=== PATIENT | male | born 1945 | race Caucasian/White ===

== ENCOUNTER 2017-12-01 10:09 | Emergency (ER) | payer MEDICARE, OTHER ==
[2017-12-01 10:24] VITALS: BP 155/61
--- NOTE | 2017-12-03 09:54 | ER ---
DATE SEEN: 12/01/2017 TIME SEEN: The patient was seen at 1035 hours. 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 Now, he notes a slight white discoloration of tissue in the anterior mid navarro with surrounding redness. He wonders if it is infected. CURRENT MEDICATIONS: 1. Simvastatin. 2. Omeprazole. 3. Metoprolol succinate 50 mg daily. 4. Metformin 500 mg b.i.d. 5. Warfarin 5 mg daily. 6. Losartan-Cozaar 50 mg daily. ALLERGIES: Sulfa. REVIEW OF SYSTEMS: Otherwise, the patient denies headache or early eyesight changes, early satiety, constipation, peripheral artery disease-paresthesia, dysesthesia in lower extremities, but he notes he has symptoms occasionally with all the above. He has had previous right inguinal hernia surgery beside two stents plus aortic valve replacement for aortic stenosis. Review systems otherwise negative. PHYSICAL EXAMINATION: VITAL SIGNS: Blood pressure 155/61, heart rate 62, respirations 18, oxygen saturation 98%, and temperature is 36.5 degrees centigrade. 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 He is pleasant gentleman, mildly overweight. He has truly the hands of a pro with thickened large hands. HEENT: He is quiet and soft spoken and wears glasses. Hearing slightly decreased. Pharynx without abnormality. NECK AND CHEST: Murmurs transmitted from the chest to the neck, aortic murmurs very short, early systolic murmur. There is a loud click in his chest. It is greater on the right side compared to the left side, 2/6 in intensity. Minimal murmur. Grade 1 early short systolic murmur. LUNGS: Clear without rales or rhonchi. HEART: Sinus rhythm. ABDOMEN: Soft. No guarding. No abdominal discomfort. Slightly increased abdominal girth. EXTREMITIES: Lower extremities, no edema. Mid left lower extremity, 8 cm area of mild ecchymosis. Not raised. Not hot, not warm. Slightly pigmented with erythema and purplish discoloration, central focal 4 mm white ulcer that is not denuded. No pain in the back of his leg. Dorsalis pedis intact. Trace pedal edema. No dysesthesia or pain with palpation in lower extremity. ASSESSMENT AND PLAN: 1. Traumatic injury, left mid lower leg. 2. Does not appear to be infected, however, because of his valvular disease, we want to avoid any infection. Consequently, the patient will be treated with Keflex 500 mg t.i.d. for 7 days. 3. Advised it will affect his pro-time and may go up because the bacteria get killed and will result in less vitamin K absorption from the gut, will also result in slight elevation in his pro-time. So this will need to be followed should it be markers and may need to be checked in a week. 4. The patient has hypertension, treated. 5. Diabetes, treated. 6. Mild obesity. 7. 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 The tightness in the pads does diminish the sensation in lower extremity. Once taken off, his circulation seemed to improve. The patient to start Keflex 3 times a day and pro-time recheck in a week and keep the wound clean and use antibiotic to protect his leg from further contusion at the site of his contusion in his left mid lower extremity. /[id number] OTILIO/DANII
== END 2017-12-01 11:30 | disposition home or self-care (01) ==
LOC: FB.ED 10:09
DX: S80.12XA Contusion of left lower leg, initial encounter (principal); I10 Essential (primary) hypertension; E11.9 Type 2 diabetes mellitus without complications; E66.9 Obesity, unspecified; K59.00 Constipation, unspecified; W22.8XXA Striking against or struck by other objects, initial encounter; Z79.899 Other long term (current) drug therapy; Z79.01 Long term (current) use of anticoagulants; Z79.84 Long term (current) use of oral hypoglycemic drugs; Z68.32 Body mass index [BMI] 32.0-32.9, adult; Z95.5 Presence of coronary angioplasty implant and graft; Z88.2 Allergy status to sulfonamides
CPT/HCPCS: 99282

== ENCOUNTER 2017-12-16 08:41 | Emergency (ER) | payer MEDICARE, OTHER ==
[2017-12-16 09:05] VITALS: BP 145/57
--- NOTE | 2017-12-16 12:32 | ER ---
DATE SEEN: 12/16/2017 HISTORY OF PRESENT ILLNESS: This 72-year-old single fellow comes in with a history of noticing a darkened bluish discoloration in his right medial foot. He has had 2 previous stents and also aortic valve replacement for aortic stenosis. He is on Coumadin. SOCIAL HISTORY: He is . Nonsmoker. PAST MEDICAL HISTORY: Has diabetes and hypertension. MEDICATIONS: He is taking; 1. Simvastatin. 2. Omeprazole. 3. Metoprolol succinate. 4. Metformin. 5. Warfarin. 6. Losartan. 7. Cozaar. REVIEW OF SYSTEMS: He denies headache, lightheadedness, or dizziness. He has decreased hearing. He states he has a cough when he goes into rest and, otherwise, he does not usually cough. At home, he does not cough. He denies chest pain or irregular heartbeat. He denies abdominal discomfort, change in bowels, diarrhea, constipation, blood in the stool, or black tarry stools. He has mild prostatism with difficulty passing urine-decreased stream. Musculoskeletal, no complaints. He has left third finger metallic sliver and it has been there for some time. PHYSICAL EXAMINATION: His right inner foot, there is a 25-cent sized area of purple discoloration suggesting mild ecchymosis that has faded. No pain noted with palpation of this. His dorsalis pedis and posterior tibialis are palpable. On palpation, he has good femoral arterial pulses. He has a slight fat overhang at lower abdomen. 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 ASSESSMENT: Right foot ecchymosis secondary to increased capillary fragility and trace of superficial bleed with bruising that is well controlled and contained. No hematoma noted. Reassured. Follow up with his doctor as needed. Also, the left third finger, metallic sliver was removed from his finger without difficulty. OTHER DIAGNOSES: 1. Heart valve, aortic, with anticoagulation. 2. Gastroesophageal reflux disease. 3. Hypertension. 4. Diabetes, treated with metformin. 5. Also, he has a soft bruit in the neck, left and right, systolic in character. I do not think this is a transmission of murmur from his aortic valve. Rule out carotid artery disease, which may need further workup and evaluation per his doctor"s discretion. The patient is to follow up with his doctor as needed. /[id number] OTILIO/DANII HATCH
== END 2017-12-16 09:44 | disposition home or self-care (01) ==
LOC: FB.ED 08:41
DX: R58 Hemorrhage, not elsewhere classified (principal); K21.9 Gastro-esophageal reflux disease without esophagitis; E11.9 Type 2 diabetes mellitus without complications; I10 Essential (primary) hypertension; Z79.84 Long term (current) use of oral hypoglycemic drugs
CPT/HCPCS: 99283

== ENCOUNTER 2019-05-08 19:49 | Emergency (ER) | payer MEDICARE, OTHER ==
[2019-05-08 20:05] VITALS: BP 1554/92; PULSE 70
--- NOTE | 2019-05-08 20:37 | EDM.PDOC ---
ED HPI GENERAL MEDICAL PROBLEM - General Stated Complaint: FELL Time Seen by Provider: 05/08/19 20:00 Source of Information: Reports: Patient History Limitations: Reports: No Limitations - History of Present Illness INITIAL COMMENTS - FREE TEXT/NARRATIVE: Patient presented to the ED because he hit his head against a metal. He sustained abrasions on the scalp area. He denies any headacheche,N/V. There was no LOC after the fall. Head Pain Score (Numeric/FACES): 0 - Related Data Allergies Allergy/AdvReac Type Severity Reaction Status Date / Time Sulfa (Sulfonamide Allergy Rash Verified 12/16/17 08:56 Antibiotics) Home Meds: Home Meds Losartan [Cozaar] 50 mg PO DAILY 12/01/17 [History] Metoprolol Succinate 50 mg PO DAILY 12/01/17 [History] Simvastatin [Zocor] 40 mg PO DAILY 12/01/17 [History] Warfarin [Coumadin] 5 mg PO DAILY 12/01/17 [History] metFORMIN [Glucophage] 500 mg PO BIDMEALS 12/01/17 [History] Aspirin 81 mg PO DAILY 05/08/19 [History] Past Medical History HEENT History: Reports: Hard of Hearing, Impaired Vision Cardiovascular History: Reports: Heart Valve Replacement, High Cholesterol, Hypertension Respiratory History: Reports: Other (See Below) Other Respiratory History: former smoker, has inhaler as needed. Gastrointestinal History: Reports: GERD Musculoskeletal History: Reports: Arthritis Endocrine/Metabolic History: Reports: Diabetes, Type II - Infectious Disease History Infectious Disease History: Reports: Chicken Pox, Mumps - Past Surgical History Cardiovascular Surgical History: Reports: Valve Replacement Social & Family History - Family History Family Medical History: Noncontributory - Caffeine Use Caffeine Use: Reports: Coffee, Soda Caffeine Use Comment: 4 cups coffee per day and 2 cans pop per day. ED ROS GENERAL - Review of Systems Review Of Systems: See Below Constitutional: Reports: No Symptoms HEENT: Reports: No Symptoms Respiratory: Reports: Cough Cardiovascular: Reports: No Symptoms Endocrine: Reports: No Symptoms GI/Abdominal: Reports: No Symptoms : Reports: No Symptoms Musculoskeletal: Reports: No Symptoms Skin: Reports: No Symptoms Neurological: Reports: No Symptoms Psychiatric: Reports: No Symptoms Hematologic/Lymphatic: Reports: No Symptoms Immunologic: Reports: No Symptoms ED EXAM, HEAD INJURY - Physical Exam Exam: See Below Exam Limited By: No Limitations General Appearance: Alert, No Apparent Distress Head: Atraumatic, Scalp Ecchymosis Eyes: Bilateral Eye: PERRL Ears: Normal External Exam, Normal Canal, Hearing Grossly Normal Nose: Normal Inspection, Normal Mucousa Throat/Mouth: Normal Inspection, Normal Lips, Normal Teeth, Normal Gums Neck: Non-Tender, Full Range of Motion, Normal Alignment Respiratory: No Respiratory Distress, Lungs Clear, Normal Breath Sounds, No Accessory Muscle Use, Chest Non-Tender Cardiovascular: Normal Peripheral Pulses, Regular Rate, Rhythm, No Edema, No Gallop, No JVD, No Murmur, No Rub GI/Abdominal Exam: Normal Bowel Sounds, Soft, Non-Tender, No Organomegaly, No Distention, No Abnormal Bruit, No Mass Skin: Other (abrasions on the scalp) Course - Vital Signs Text/Narrative:: patient refused to have a head CT. I explained to him that he is high risk for bleeding because he is taking coumadin but he told me that he doesn't need it and just want to go home. Last Recorded V/S: Last Vital Signs Temp 36.3 C 05/08/19 19:55 Pulse 70 05/08/19 19:55 Resp 16 05/08/19 19:55 BP 1554/92 H 05/08/19 19:55 Pulse Ox 99 05/08/19 19:55 Departure - Departure Time of Disposition: 20:35 Disposition: Home, Self-Care 01 Condition: Good Clinical Impression: Head injury - Discharge Information Instructions: Head Injury, Adult Referrals: Carlos Newton MD [Primary Care Provider] - Forms: ED Department Discharge Additional Instructions: please read discharge instructions on closed head injury return to the EDif you develop any headache,nausea,vomiting,feels confused
== END 2019-05-08 20:45 | disposition home or self-care (01) ==
LOC: FB.ED 19:49
DX: S00.01XA Abrasion of scalp, initial encounter (principal); S09.90XA Unspecified injury of head, initial encounter; I10 Essential (primary) hypertension; E03.9 Hypothyroidism, unspecified; E11.9 Type 2 diabetes mellitus without complications; Z79.899 Other long term (current) drug therapy; Z79.84 Long term (current) use of oral hypoglycemic drugs; Z79.82 Long term (current) use of aspirin; Z79.01 Long term (current) use of anticoagulants; Z88.2 Allergy status to sulfonamides; W19.XXXA Unspecified fall, initial encounter; Z87.891 Personal history of nicotine dependence; W22.8XXA Striking against or struck by other objects, initial encounter
CPT/HCPCS: 99282; 99283

== ENCOUNTER 2019-07-29 06:58 | Day surgery (SDC) | payer MEDICARE, OTHER ==
[~2019-07-29 06:58] MED LIST: Sodium Chloride 0.9% 10 ML Syringe FLUSH PRN
[2019-07-29] MEDS ORDERED: Midazolam 1 MG/ML 2 ML SDV IV ONE (06:59)
[2019-07-29] MEDS: Lactated Ringers 1,000 ML IV SCH (07:45)
[2019-07-29 09:51] VITALS: BP 150/68; PULSE 76
[2019-07-29] MEDS: acetaZOLAMIDE 500 MG Cap.ER PO ONE (09:57)
--- NOTE | 2019-07-29 16:03 | OR ---
DATE OF OPERATION: 07/29/2019 SURGEON: Alicia Gomez MD PREOPERATIVE DIAGNOSIS: Visually significant cataract, left eye. POSTOPERATIVE DIAGNOSIS: Visually significant cataract, left eye. PROCEDURES PERFORMED: Phacoemulsification with intraocular lens placement, left eye. ASSISTANTS: None. ANESTHESIA: Local with sedation. COMPLICATIONS: None. BLOOD LOSS: None. IMPLANTS: An Carlos AU00T0, 22.0 diopter lens, serial number [id number] implanted. CDE: 3.08. DESCRIPTION OF PROCEDURE: After risks and benefits were reviewed with the patient, consent was obtained in the preoperative area, and the operative eye was marked with a surgical pen. In the preoperative area, a pledget was used to dilate the pupil consisting of a mixture of phenylephrine 10%, cyclopentolate 2%, moxifloxacin 0.5%, and bupivacaine 0.75%. The patient was taken to the operating room, where a time-out was performed, and the patient was placed under monitored anesthesia care. Topical tetracaine was used for anesthesia. The operative eye was prepped and draped for ophthalmic surgery, and the microscope was brought into position and focussed. A paracentesis incision was made, followed by injection of preservative-free 1% lidocaine into the anterior chamber, followed by injection of Viscoat into the anterior chamber. A microkeratome blade was used to make a corneal limbal incision temporarily. A cystotome was used to make the beginning of the capsulorrhexis, which was carried around 360 degrees in a curvilinear fashion using Utrata forceps. A Garcia cannula with BSS was used to hydrodissect and hydrodelineate the nucleus. The nucleus was removed in a divide and conquer manner using phacoemulsification. Irrigation and aspiration were used to remove the remaining cortical material. Provisc was used to inflate the capsular bag, and a pre-loaded 22.0 diopter lens, serial number [id number], was injected into the capsular bag. A Sinskey hook was used to position and center the lens. Next, irrigation and aspiration was used to remove any remaining viscoelastic and cortical material from the anterior chamber. BSS on a cannula was used to inflate the anterior chamber and hydrate the wound. The wound was checked and found to be watertight. 1 mg of Moxifloxacin was injected into the anterior chamber. Drapes were removed and the eye was cleaned. A drop of brimonidine 0.15% and a drop of TobraDex was placed. The eye was shielded, and the patient was taken to the recovery room in stable condition. /[id number] LUDA/DANII CC: HANY FLORENCE PA-C MTDD
== END 2019-07-29 10:14 | disposition home or self-care (01) ==
LOC: FB.SDS 06:58
PROVIDERS: ATTEND Ophthalmology
DX: E11.36 Type 2 diabetes mellitus with diabetic cataract (principal); H25.13 Age-related nuclear cataract, bilateral; Q14.8 Other congenital malformations of posterior segment of eye; H01.029 Squamous blepharitis unspecified eye, unspecified eyelid; H02.88B Meibomian gland dysfunction left eye, upper and lower eyelids; H02.88A Meibomian gland dysfunction right eye, upper and lower eyelids; H52.203 Unspecified astigmatism, bilateral; H52.4 Presbyopia; I25.10 Atherosclerotic heart disease of native coronary artery without angina pectoris; I10 Essential (primary) hypertension; E78.5 Hyperlipidemia, unspecified; M19.049 Primary osteoarthritis, unspecified hand; Z87.891 Personal history of nicotine dependence; Z88.2 Allergy status to sulfonamides; Z79.01 Long term (current) use of anticoagulants; Z79.84 Long term (current) use of oral hypoglycemic drugs; Z79.51 Long term (current) use of inhaled steroids; Z79.82 Long term (current) use of aspirin; Z79.899 Other long term (current) drug therapy; Z95.2 Presence of prosthetic heart valve; Z95.1 Presence of aortocoronary bypass graft
CPT/HCPCS: 00142-QZ; 82962; A9270-GY; J2250; J7120; V2632

== ENCOUNTER 2019-09-09 07:02 | Day surgery (SDC) | payer MEDICARE, OTHER ==
[~2019-09-09 07:02] MED LIST changes: +Lactated Ringers 1,000 ML IV SCH
[2019-09-09] MEDS ORDERED: fentaNYL 100 MCG/2 ML SDV IV ONE (07:03)
[2019-09-09] MEDS ORDERED: Midazolam 1 MG/ML 2 ML SDV IV ONE (07:03)
[2019-09-09] MEDS ORDERED: acetaZOLAMIDE 500 MG Cap.ER PO ONE (08:30)
[2019-09-09 13:21] VITALS: BP 164/64; PULSE 70
--- NOTE | 2019-09-10 08:30 | OR ---
DATE OF OPERATION: 09/09/2019 SURGEON: Alicia Gomez MD PREOPERATIVE DIAGNOSIS: Visually significant cataract, right eye. POSTOPERATIVE DIAGNOSIS: Visually significant cataract, right eye. PROCEDURES PERFORMED: Phacoemulsification with intraocular lens placement, right eye. ASSISTANTS: None. ANESTHESIA: Local with sedation. COMPLICATIONS: None. BLOOD LOSS: None. IMPLANTS: Carlos [id number] 21.5 diopter lens implanted. CDE: 5.83. DESCRIPTION OF PROCEDURE: After risks and benefits were reviewed with the patient, consent was obtained in the preoperative area, and the operative eye was marked with a surgical pen. In the preoperative area, a pledget was used to dilate the pupil consisting of a mixture of phenylephrine 10%, cyclopentolate 2%, moxifloxacin 0.5%, and bupivacaine 0.75%. The patient was taken to the operating room, where a time-out was performed, and the patient was placed under monitored anesthesia care. Topical tetracaine was used for anesthesia. The operative eye was prepped and draped for ophthalmic surgery, and the microscope was brought into position and focused. A paracentesis incision was made, followed by injection of preservative-free 1% lidocaine into the anterior chamber, followed by injection of Viscoat into the anterior chamber. A microkeratome blade was used to make a corneal limbal incision temporally. A cystotome was used to make the beginning of the capsulorrhexis, which was carried around 360 degrees in a curvilinear fashion using Utrata forceps. A Garcia cannula with BSS was used to hydrodissect and hydrodelineate the nucleus. The nucleus was removed in a divide and conquer manner using phacoemulsification. Irrigation and aspiration were used to remove the remaining cortical material. Provisc was used to inflate the capsular bag, and a pre-loaded Carlos [id number] 21.5 diopter lens, serial number [id number] was injected into the capsular bag. A Sinskey hook was used to position and center the lens. Next, irrigation and aspiration was used to remove any remaining viscoelastic and cortical material from the anterior chamber. BSS on a cannula was used to inflate the anterior chamber and hydrate the wound. The wound was checked and found to be watertight. 1 mg of Moxifloxacin was injected into the anterior chamber. Drapes were removed and the eye was cleaned. A drop of brimonidine 0.15% and a drop of TobraDex was placed. The eye was shielded, and the patient was taken to the recovery room in stable condition. /[id number] LUDA/DANII CC: HANY FLORENCE PA-C
== END 2019-09-09 09:25 | disposition home or self-care (01) ==
LOC: FB.SDS 07:02
PROVIDERS: ATTEND Ophthalmology
DX: E11.36 Type 2 diabetes mellitus with diabetic cataract (principal); H25.11 Age-related nuclear cataract, right eye; Q11.2 Microphthalmos; H01.029 Squamous blepharitis unspecified eye, unspecified eyelid; I10 Essential (primary) hypertension; E78.5 Hyperlipidemia, unspecified; I25.10 Atherosclerotic heart disease of native coronary artery without angina pectoris; Z95.4 Presence of other heart-valve replacement; Z79.84 Long term (current) use of oral hypoglycemic drugs; Z79.899 Other long term (current) drug therapy; Z79.82 Long term (current) use of aspirin; Z88.2 Allergy status to sulfonamides; Z98.42 Cataract extraction status, left eye; Z87.891 Personal history of nicotine dependence
CPT/HCPCS: 82962; A9270-GY; J2250; J3010; J7120; V2632

== ENCOUNTER 2019-09-23 11:13 | Inpatient (IN) | payer MEDICARE, OTHER ==
[2019-09-23] MEDS ORDERED: Albuterol/Ipratropium 3.0-0.5 MG/3 ML Neb Soln NEB PRN (12:56)
[2019-09-23] MEDS ORDERED: Acetaminophen 325 MG Tab PO PRN (12:56)
[2019-09-23] MEDS ORDERED: cefTRIAXone 1 GM in Sodium Chloride 0.9% 50 ML IV SCH (13:00)
[2019-09-23] MEDS ORDERED: Azithromycin 500 MG in Sodium Chloride 0.9% 250 ML IV SCH ×2 (13:00→13:30)
[2019-09-23] MEDS ORDERED: cefTRIAXone 1 GM Vial IVPUSH SCH (13:00)
--- NOTE | 2019-09-23 13:05 | PCM.HP.2 ---
H&P History of Present Illness - General Date of Service: 09/23/19 Admit Problem/Dx: Admission Diagnosis/Problem Admission Diagnosis/Problem Pneumonia Source of Information: Patient, Old Records History Limitations: Reports: No Limitations - History of Present Illness Initial Comments - Free Text/Narative: Radu even 74-year-old young man who presents with shortness of breath. He was seen in the clinic by Dolly Ventura and admitted here for treatment for pneumonia. Radu has had shortness of breath for a few weeks, subjective fever, nonproductive on and off cough. He also complains of fleeting chest pain, bilateral. 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 A PET scan that was done afterwards revealed and decreasing size of the mass 3.[address] chest 3 weeks ago confirmed stability.He saw Pulmonology at the beginning of August, was put on Breo on suspicion of reactive airway disease;possibly restrictive lung disease(tests were not conclusive). In the last few days he's felt worse. In the clinic today , a chest x-ray showed a left lower lobe infiltrate suggestive of recurrent pneumonia. No recent travel to high risk areas for COVID-19,and he does not endorse any contacts with a known patient. Radu's past medical history is consistent with hypertensive, coronary disease( stent x1 about 10years ago), diabetes type 2 well controlled, and aortic stenosis status post valve repair - Related Data Allergies/Adverse Reactions: Allergies Allergy/AdvReac Type Severity Reaction Status Date / Time Sulfa (Sulfonamide Allergy Rash Verified 09/09/19 07:40 Antibiotics) Home Medications: Home Meds Losartan [Cozaar] 50 mg PO DAILY 12/01/17 [History] Metoprolol Succinate 50 mg PO BID 12/01/17 [History] Simvastatin [Zocor] 40 mg PO DAILY 12/01/17 [History] Warfarin [Coumadin] 5 mg PO DAILY 12/01/17 [History] metFORMIN [Glucophage] 500 mg PO BIDMEALS 12/01/17 [History] Aspirin 81 mg PO DAILY 05/08/19 [History] Hydrochlorthiazide/Irbesartan [Avalide 12.5-300 MG] 1 tab PO DAILY 07/28/19 [ History] Omeprazole 20 mg PO DAILY 07/28/19 [History] Albuterol Sulfate [Albuterol Sulfate Hfa] 2 puff IH Q4H PRN 08/11/19 [History] Meclizine [Antivert] 12.5 mg PO Q4H PRN 08/11/19 [History] Carboxymethylcellulose Sodium [Thera Tears] 1 each OP ASDIRECTED 09/04/19 [ History] Fluticasone/Salmeterol [Advair Hfa 45-21 Mcg Inhaler] 2 puff IH BID 09/04/19 [ History] Fluticasone/Vilanterol [Breo Ellipta 100-25 MCG Inhalation Kit] 1 each IH DAILY 09/04/19 [History] Past Medical History HEENT History: Reports: Cataract, Hard of Hearing, Impaired Vision, Other (See Below) Other HEENT History: MEIBOMIAN GLAND DYSFUNCTION, BILATERAL BOTH UPPER & LOWER LIDS. TEAR FILM INSUFFICIENCY. HYPEROPIA. REGULAR ASTIGMATISM OF BOTH EYES. PRESBYOPIA. DENTAL CARRIES Cardiovascular History: Reports: CAD, Heart Valve Replacement, High Cholesterol , Hypertension Other Cardiovascular History: AORTIC STENOSIS Respiratory History: Reports: Other (See Below) Other Respiratory History: former smoker, has inhaler as needed. Gastrointestinal History: Reports: Cholelithiasis, GERD Musculoskeletal History: Reports: Arthritis Neurological History: Reports: None Psychiatric History: Reports: None Endocrine/Metabolic History: Reports: Diabetes, Type II Hematologic History: Reports: Anticoagulation Therapy Immunologic History: Reports: None Oncologic (Cancer) History: Reports: None Dermatologic History: Reports: None - Infectious Disease History Infectious Disease History: Reports: Chicken Pox, Mumps - Past Surgical History HEENT Surgical History: Reports: Cataract Surgery Cardiovascular Surgical History: Reports: Coronary Artery Bypass, Valve Replacement Male Surgical History: Reports: Other (See Below) Other Male Surgeries/Procedures: HERNIA WITH OBSTRUCTION. GALLSTONES. HERNIA REPAIR Social & Family History - Family History Family Medical History: Noncontributory - Caffeine Use Caffeine Use: Reports: Coffee, Soda Caffeine Use Comment: 4 cups coffee per day and 2 cans pop per day. H&P Review of Systems - Review of Systems: Review Of Systems: Comprehensive ROS is negative, except as noted in HPI. Exam - Exam Exam: See Below - Vital Signs Vital Signs: Last Vital Signs Temp 97.5 F 09/23/19 12:26 Pulse 84 09/23/19 12:26 Resp 20 09/23/19 12:26 BP 152/76 H 09/23/19 12:26 Pulse Ox 95 09/23/19 12:26 Weight: 91.796 kg - Exam Quality Assessment: No: Supplemental Oxygen General: Mild Distress HEENT: PERRLA Neck: Supple Lungs: Crackles Cardiovascular: Regular Rate GI/Abdominal Exam: Normal Bowel Sounds (Male) Exam: Deferred Rectal (Males) Exam: Deferred Back Exam: Normal Inspection Extremities: Normal Inspection, Pedal Edema Skin: Warm Neurological: Cranial Nerves Intact Neuro Extensive - Mental Status: Alert, Oriented x3 Neuro Extensive - Motor, Sensory, Reflexes: CN II-XII Intact Psychiatric: Alert, Normal Affect Sepsis Event Note - Focused Exam Vital Signs: Vital Signs Temp Pulse Resp BP Pulse Ox 09/23/19 12:26 97.5 F 84 20 152/76 H 95 Date Exam was Performed: 09/23/19 Time Exam was Performed: 13:13 - Problem List (1) CAP (community acquired pneumonia) SNOMED Code(s): 375906598 ICD Code: J18.9 - PNEUMONIA, UNSPECIFIED ORGANISM Status: Acute Current Visit: Yes Qualifiers: Laterality: left (2) SOB (shortness of breath) SNOMED Code(s): 955922268 ICD Code: R06.02 - SHORTNESS OF BREATH Status: Acute Current Visit: Yes (3) Elevated troponin SNOMED Code(s): 879241796, 734386431, 299090818 ICD Code: R79.89 - OTHER SPECIFIED ABNORMAL FINDINGS OF BLOOD CHEMISTRY Status: Acute Current Visit: Yes (4) S/P AVR Status: Chronic Current Visit: Yes (5) Long-term (current) use of anticoagulants, INR goal 2.5-3.5 SNOMED Code(s): 389710923, 160473711 ICD Code: Z79.01 - SPIRAL WINDER (CURRENT) USE OF ANTICOAGULANTS Status: Chronic Current Visit: Yes (6) CAD (coronary artery disease) SNOMED Code(s): 90707029 ICD Code: I25.10 - ATHSCL HEART DISEASE OF [place] CORONARY ARTERY W/O ANG PCTRS Status: Chronic Current Visit: Yes Qualifiers: Coronary Disease-Associated Artery/Lesion type: [place] artery Associated angina: without angina (7) Diabetes type 2, controlled SNOMED Code(s): 13380820, 154777294 ICD Code: E11.9 - TYPE 2 DIABETES MELLITUS WITHOUT COMPLICATIONS Status: Chronic Current Visit: Yes (8) HTN (hypertension) SNOMED Code(s): 00797821 ICD Code: I10 - ESSENTIAL (PRIMARY) HYPERTENSION Status: Chronic Current Visit: Yes Qualifiers: Hypertension type: essential hypertension Qualified Code(s): I10 - Essential (primary) hypertension Problem List Initiated/Reviewed/Updated: Yes Orders Last 24hrs: Active Orders 24 hr Category Date Time Status Patient Status [ADT] Routine ADT 09/23/19 12:56 Ordered Blood Glucose Check, Bedside [RC] TIDMEALS Care 09/23/19 12:56 Ordered EKG Documentation Completion [RC] ASDIRECTED Care 09/23/19 12:59 Ordered Height and Weight [RC] DAILY Care 09/23/19 12:56 Ordered Oxygen Therapy [RC] PRN Care 09/23/19 12:56 Ordered RT Aerosol Therapy [RC] ASDIRECTED Care 09/23/19 12:58 Ordered Up With Assistance [RC] ASDIRECTED Care 09/23/19 12:56 Ordered VTE/DVT Education [RC] Per Unit Routine Care 09/23/19 12:56 Ordered Vital Signs [RC] Q8H Care 09/23/19 12:56 Ordered Consistent Carbohydrate Diet [DIET] Diet 09/23/19 Breakfast Ordered Chest w Cont [CT] Routine Exams 09/23/19 13:02 Ordered BASIC METABOLIC PANEL,BMP [CHEM] AM Lab 09/24/19 05:11 Ordered CBC WITH AUTO DIFF [HEME] AM Lab 09/24/19 05:11 Ordered CORONAVIRUS COVID-19 PCR PHL [MREF] Stat Lab 09/23/19 12:56 Ordered CORONAVIRUS COVID-19, SHADE Stat Lab 09/23/19 12:56 Ordered CULTURE BLOOD [BC] Urgent Lab 09/23/19 12:59 Ordered CULTURE BLOOD [BC] Urgent Lab 09/23/19 12:59 Ordered RESPIRATORY PROFILE, PCR Stat Lab 09/23/19 13:03 Ordered TROPONIN I [CHEM] AM Lab 09/24/19 05:11 Ordered TROPONIN I [CHEM] Stat Lab 09/23/19 12:56 Ordered Acetaminophen [Tylenol] Med 09/23/19 12:56 Ordered 650 mg PO Q4H PRN Albuterol/Ipratropium [DuoNeb 3.0-0.5 MG/3 ML] Med 09/23/19 12:56 Ordered 3 ml NEB QIDRT PRN Azithromycin [Zithromax] 500 mg Med 09/23/19 13:00 Ordered Sodium Chloride 0.9% [Normal Saline (AdvBag)] 250 ml IV Q24H Sodium Chloride 0.9% [Saline Flush] Med 09/23/19 12:56 Ordered 10 ml FLUSH ASDIRECTED PRN cefTRIAXone [Rocephin] 1 gm Med 09/23/19 13:00 Ordered Sodium Chloride 0.9% [Normal Saline] 50 ml IV Q24H Blood Culture x2 Reflex Set [OM.PC] Urgent Oth 09/23/19 12:56 Ordered Peripheral IV Insertion Adult [OM.PC] Routine Oth 09/23/19 12:56 Ordered Resuscitation Status Routine Resus Stat 09/23/19 12:56 Ordered EKG 12 Lead [EK] Stat Ther 09/23/19 12:56 Ordered Medication Orders Acetaminophen (Tylenol) 650 mg PO Q4H PRN PRN Reason: Pain (Mild 1-3)/fever Albuterol/Ipratropium (Duoneb 3.0-0.5 Mg/3 Ml) 3 ml NEB QIDRT PRN PRN Reason: Wheezing Azithromycin 500 mg/ Sodium (Chloride) 250 mls @ 250 mls/hr IV Q24H KIM Ceftriaxone Sodium 1 gm/ (Sodium Chloride) 50 mls @ 200 mls/hr IV Q24H KIM Sodium Chloride (Saline Flush) 10 ml FLUSH ASDIRECTED PRN PRN Reason: Keep Vein Open Assessment/Plan Comment:: I have admitted him with contact prevautions. Will obtail a repat Trop and trend it. Also obtain a COVID-19 test and comp resp panel. Start IV abx. Duonebs PRN. Echo done in 2019 was negative for CHF.EF was 65%.
[2019-09-23] MEDS: Sodium Chloride 0.9% 10 ML Syringe FLUSH PRN (15:54)
[2019-09-23] MEDS ORDERED: Warfarin 5 MG, Warfarin 2.5 MG PO ONE ×2 (16:00)
[2019-09-23] MEDS ORDERED: BROMFENAC 0.09% EYERT SCH (16:00)
[2019-09-23] MEDS ORDERED: MOXIFLOXACIN EYERT SCH (16:00)
[2019-09-23] MEDS ORDERED: PREDNISOLONE EYERT SCH (16:00)
[2019-09-23] MEDS ORDERED: Warfarin Sliding Scale PO SCH (16:00)
--- NOTE | 2019-09-23 16:12 | PCM.SN ---
- Free Text/Narrative Note: [facility] Date: 09/23/2019 Time: 1524 to 1540 Dx: Pneumonia, Poor Peripheral Venous Access Rx: Obtain Peripheral Venous Access COVID-19 Precautions I was called by the floor RN for peripheral venous access after failed attempts. I did use COVID-19 precautions including N95 mask. I did find a peripheral vein in his right medial ACF area and I prepped the skin with alcohol wipes X 4. I did apply some "skin deadening" spray and inserted and advanced a BD Insyte Autoguard 20Ga. X 1.16 In. catheter X 2 attempts with a good blood return. I injected a total of 15 ml's of normal saline without difficulty and applied an Op-Site dressing. He tolerated this well. No coughing occurred during this procedure. Carlos Cristobal CRNA, A
[2019-09-23] MEDS: metFORMIN 500 MG Tab PO SCH (17:24)
[2019-09-23] MEDS: PREDNISOLONE EYERT SCH (20:30)
[2019-09-23] MEDS: BROMFENAC 0.09% EYERT SCH (20:30)
[2019-09-23] MEDS: MOXIFLOXACIN EYERT SCH (20:30)
[2019-09-23] MEDS: Metoprolol Tartrate 50 MG Tab PO SCH (20:31)
[2019-09-23] MEDS: Simvastatin 40 MG Tab PO SCH (20:31)
[2019-09-23] MEDS ORDERED: Metoprolol Succinate 50 MG Tab.ER PO SCH (21:00)
[2019-09-24] MEDS: metFORMIN 500 MG Tab PO SCH ×2 (08:13→17:57)
[2019-09-24] MEDS: Losartan 50 MG Tab PO SCH (08:14)
[2019-09-24] MEDS: Aspirin 81 MG Tab.EC PO SCH (08:14)
[2019-09-24] MEDS: Docusate Sodium 250 MG Cap PO SCH ×2 (08:14→08:19)
[2019-09-24] MEDS: Metoprolol Tartrate 50 MG Tab PO SCH ×2 (08:15→21:33)
[2019-09-24] MEDS: BROMFENAC 0.09% EYERT SCH ×2 (08:16→21:33)
[2019-09-24] MEDS: PREDNISOLONE EYERT SCH ×2 (08:16→21:33)
[2019-09-24] MEDS: MOXIFLOXACIN EYERT SCH ×2 (08:16→21:33)
[2019-09-24] MEDS: Sodium Chloride 0.9% 10 ML Syringe FLUSH PRN ×4 (08:23→17:32)
[2019-09-24] MEDS ORDERED: Furosemide 40 MG/4 ML VIAL IVPUSH ONE (08:52)
--- NOTE | 2019-09-24 08:52 | PCM.PN ---
- General Info Date of Service: 09/24/19 Subjective Update: Feels better today. Mild cough here and there. No chest pain. No FEVER Functional Status: Reports: Pain Controlled - Review of Systems HEENT: Reports: No Symptoms Gastrointestinal: Reports: No Symptoms Genitourinary: Reports: No Symptoms Musculoskeletal: Reports: No Symptoms - Patient Data Vitals - Most Recent: Last Vital Signs Temp 98.4 F 09/24/19 00:00 Pulse 78 09/24/19 08:15 Resp 20 09/24/19 00:00 BP 137/75 09/24/19 08:15 Pulse Ox 97 09/24/19 00:00 Weight - Most Recent: 91.399 kg I&O - Last 24 Hours: Intake & Output 09/23/19 09/24/19 09/24/19 22:59 06:59 14:59 Intake Total 490 300 Output Total 200 400 Balance 290 -100 Lab Results Last 24 Hours: Laboratory Results - last 24 hr 09/23/19 09/23/19 09/23/19 Range/Units 13:50 13:50 13:50 WBC (4.5-12.0) X10-3/uL RBC (4.30-5.75) x10(6)uL Hgb (13.5-17.8) g/dL Hct (30.0-51.3) % MCV (80-96) fL MCH (27.7-33.6) pg MCHC (32.2-35.4) g/dL RDW (11.5-15.5) % Plt Count (125-369) X10(3)uL MPV (7.4-10.4) fL Add Manual Diff Neutrophils % (Manual) (46-82) % Band Neutrophils % (0-6) % Lymphocytes % (Manual) (13-37) % Monocytes % (Manual) (4-12) % Hypersegmented Neuts Toxic Granulation (NOT SEEN) ESR (0-15) mm/hr PT (9.0-11.1) sec INR (1.00-1.24) ABG pH (7.35-7.45) ABG pCO2 (35-45) mmHg ABG pO2 (83-108) mmHg ABG HCO3 (22-26) mmol/L ABG O2 Saturation (96-97) % ABG Base Excess (-2-2) Pepe Test O2 Delivery Device Oxygen Flow Rate L Sodium (135-145) mmol/L Potassium (3.5-5.3) mmol/L Chloride (100-110) mmol/L Carbon Dioxide (21-32) mmol/L BUN (7-18) mg/dL Creatinine (0.70-1.30) mg/dL Est Cr Clr Drug Dosing mL/min Estimated GFR (MDRD) (>60) BUN/Creatinine Ratio (9-20) Glucose (80-116) mg/dL POC Glucose (80-116) mg/dL Lactic Acid (0.4-2.0) mmol/L Calcium (8.6-10.2) mg/dL Magnesium (1.8-2.5) mg/dL Total Bilirubin (0.1-1.3) mg/dL AST (5-25) IU/L ALT (12-36) U/L Alkaline Phosphatase (56-112) IU/L Creatine Kinase (60-160) IU/L Troponin I > 95393.0 H* (4.0-60.3) pg/mL C-Reactive Protein (0.5-0.9) mg/dL NT-Pro-B Natriuret Pep 2108 H* (<=450) pg/mL Total Protein (6.0-8.0) g/dL Albumin (3.2-4.6) g/dL Globulin g/dL Albumin/Globulin Ratio Procalcitonin 0.36 (h) 09/23/19 09/23/19 09/23/19 Range/Units 13:50 17:23 21:30 WBC 15.6 H (4.5-12.0) X10-3/uL RBC 5.28 (4.30-5.75) x10(6)uL Hgb 15.8 (13.5-17.8) g/dL Hct 47.1 (30.0-51.3) % MCV 89.2 (80-96) fL MCH 29.9 (27.7-33.6) pg MCHC 33.5 (32.2-35.4) g/dL RDW 13.1 (11.5-15.5) % Plt Count 120 L (125-369) X10(3)uL MPV 9.8 (7.4-10.4) fL Add Manual Diff Yes Neutrophils % (Manual) 85 H (46-82) % Band Neutrophils % 1 (0-6) % Lymphocytes % (Manual) 6 L (13-37) % Monocytes % (Manual) 8 (4-12) % Hypersegmented Neuts Toxic Granulation (NOT SEEN) ESR 1 (0-15) mm/hr PT 18.4 H (9.0-11.1) sec INR 1.99 H (1.00-1.24) ABG pH (7.35-7.45) ABG pCO2 (35-45) mmHg ABG pO2 (83-108) mmHg ABG HCO3 (22-26) mmol/L ABG O2 Saturation (96-97) % ABG Base Excess (-2-2) Pepe Test O2 Delivery Device Oxygen Flow Rate L Sodium (135-145) mmol/L Potassium (3.5-5.3) mmol/L Chloride (100-110) mmol/L Carbon Dioxide (21-32) mmol/L BUN (7-18) mg/dL Creatinine (0.70-1.30) mg/dL Est Cr Clr Drug Dosing mL/min Estimated GFR (MDRD) (>60) BUN/Creatinine Ratio (9-20) Glucose (80-116) mg/dL POC Glucose 212 H D (80-116) mg/dL Lactic Acid (0.4-2.0) mmol/L Calcium (8.6-10.2) mg/dL Magnesium (1.8-2.5) mg/dL Total Bilirubin (0.1-1.3) mg/dL AST (5-25) IU/L ALT (12-36) U/L Alkaline Phosphatase (56-112) IU/L Creatine Kinase (60-160) IU/L Troponin I (4.0-60.3) pg/mL C-Reactive Protein (0.5-0.9) mg/dL NT-Pro-B Natriuret Pep (<=450) pg/mL Total Protein (6.0-8.0) g/dL Albumin (3.2-4.6) g/dL Globulin g/dL Albumin/Globulin Ratio Procalcitonin 09/23/19 09/23/19 09/23/19 Range/Units 21:30 21:30 21:30 WBC (4.5-12.0) X10-3/uL RBC (4.30-5.75) x10(6)uL Hgb (13.5-17.8) g/dL Hct (30.0-51.3) % MCV (80-96) fL MCH (27.7-33.6) pg MCHC (32.2-35.4) g/dL RDW (11.5-15.5) % Plt Count (125-369) X10(3)uL MPV (7.4-10.4) fL Add Manual Diff Neutrophils % (Manual) (46-82) % Band Neutrophils % (0-6) % Lymphocytes % (Manual) (13-37) % Monocytes % (Manual) (4-12) % Hypersegmented Neuts Toxic Granulation (NOT SEEN) ESR (0-15) mm/hr PT (9.0-11.1) sec INR (1.00-1.24) ABG pH (7.35-7.45) ABG pCO2 (35-45) mmHg ABG pO2 (83-108) mmHg ABG HCO3 (22-26) mmol/L ABG O2 Saturation (96-97) % ABG Base Excess (-2-2) Pepe Test O2 Delivery Device Oxygen Flow Rate L Sodium 136 (135-145) mmol/L Potassium 4.6 (3.5-5.3) mmol/L Chloride 100 (100-110) mmol/L Carbon Dioxide 30 (21-32) mmol/L BUN 20 H (7-18) mg/dL Creatinine 1.1 (0.70-1.30) mg/dL Est Cr Clr Drug Dosing 55.27 mL/min Estimated GFR (MDRD) > 60 (>60) BUN/Creatinine Ratio 18.2 (9-20) Glucose 137 H (80-116) mg/dL POC Glucose (80-116) mg/dL Lactic Acid 1.5 (0.4-2.0) mmol/L Calcium 8.8 (8.6-10.2) mg/dL Magnesium (1.8-2.5) mg/dL Total Bilirubin 0.4 (0.1-1.3) mg/dL AST 156 H* (5-25) IU/L ALT 32 (12-36) U/L Alkaline Phosphatase 116 H (56-112) IU/L Creatine Kinase (60-160) IU/L Troponin I (4.0-60.3) pg/mL C-Reactive Protein 2.5 H (0.5-0.9) mg/dL NT-Pro-B Natriuret Pep (<=450) pg/mL Total Protein 7.7 (6.0-8.0) g/dL Albumin 3.5 (3.2-4.6) g/dL Globulin 4.2 g/dL Albumin/Globulin Ratio 0.8 Procalcitonin 09/23/19 09/23/19 09/23/19 Range/Units 21:30 21:30 21:30 WBC (4.5-12.0) X10-3/uL RBC (4.30-5.75) x10(6)uL Hgb (13.5-17.8) g/dL Hct (30.0-51.3) % MCV (80-96) fL MCH (27.7-33.6) pg MCHC (32.2-35.4) g/dL RDW (11.5-15.5) % Plt Count (125-369) X10(3)uL MPV (7.4-10.4) fL Add Manual Diff Neutrophils % (Manual) (46-82) % Band Neutrophils % (0-6) % Lymphocytes % (Manual) (13-37) % Monocytes % (Manual) (4-12) % Hypersegmented Neuts Toxic Granulation (NOT SEEN) ESR (0-15) mm/hr PT (9.0-11.1) sec INR (1.00-1.24) ABG pH (7.35-7.45) ABG pCO2 (35-45) mmHg ABG pO2 (83-108) mmHg ABG HCO3 (22-26) mmol/L ABG O2 Saturation (96-97) % ABG Base Excess (-2-2) Pepe Test O2 Delivery Device Oxygen Flow Rate L Sodium (135-145) mmol/L Potassium (3.5-5.3) mmol/L Chloride (100-110) mmol/L Carbon Dioxide (21-32) mmol/L BUN (7-18) mg/dL Creatinine (0.70-1.30) mg/dL Est Cr Clr Drug Dosing mL/min Estimated GFR (MDRD) (>60) BUN/Creatinine Ratio (9-20) Glucose (80-116) mg/dL POC Glucose (80-116) mg/dL Lactic Acid (0.4-2.0) mmol/L Calcium (8.6-10.2) mg/dL Magnesium 2.0 (1.8-2.5) mg/dL Total Bilirubin (0.1-1.3) mg/dL AST (5-25) IU/L ALT (12-36) U/L Alkaline Phosphatase (56-112) IU/L Creatine Kinase 176 H (60-160) IU/L Troponin I 18921.4 H* (4.0-60.3) pg/mL C-Reactive Protein (0.5-0.9) mg/dL NT-Pro-B Natriuret Pep (<=450) pg/mL Total Protein (6.0-8.0) g/dL Albumin (3.2-4.6) g/dL Globulin g/dL Albumin/Globulin Ratio Procalcitonin 09/23/19 09/24/19 09/24/19 Range/Units 21:40 06:20 06:20 WBC 14.2 H (4.5-12.0) X10-3/uL RBC 5.28 (4.30-5.75) x10(6)uL Hgb 15.5 (13.5-17.8) g/dL Hct 47.0 (30.0-51.3) % MCV 89.0 (80-96) fL MCH 29.4 (27.7-33.6) pg MCHC 33.0 (32.2-35.4) g/dL RDW 12.9 (11.5-15.5) % Plt Count 119 L (125-369) X10(3)uL MPV 9.5 (7.4-10.4) fL Add Manual Diff Yes Neutrophils % (Manual) 91 H (46-82) % Band Neutrophils % (0-6) % Lymphocytes % (Manual) 4 L (13-37) % Monocytes % (Manual) 5 (4-12) % Hypersegmented Neuts Many Toxic Granulation Moderate H (NOT SEEN) ESR (0-15) mm/hr PT (9.0-11.1) sec INR (1.00-1.24) ABG pH 7.41 (7.35-7.45) ABG pCO2 42 (35-45) mmHg ABG pO2 81 L (83-108) mmHg ABG HCO3 26 (22-26) mmol/L ABG O2 Saturation 96 (96-97) % ABG Base Excess 1.7 (-2-2) Pepe Test Passed O2 Delivery Device Room air Oxygen Flow Rate 0 L Sodium 136 (135-145) mmol/L Potassium 4.6 (3.5-5.3) mmol/L Chloride 100 (100-110) mmol/L Carbon Dioxide 29 (21-32) mmol/L BUN 18 (7-18) mg/dL Creatinine 1.0 (0.70-1.30) mg/dL Est Cr Clr Drug Dosing 60.80 mL/min Estimated GFR (MDRD) > 60 (>60) BUN/Creatinine Ratio 18.0 (9-20) Glucose 126 H (80-116) mg/dL POC Glucose (80-116) mg/dL Lactic Acid (0.4-2.0) mmol/L Calcium 8.7 (8.6-10.2) mg/dL Magnesium (1.8-2.5) mg/dL Total Bilirubin (0.1-1.3) mg/dL AST (5-25) IU/L ALT (12-36) U/L Alkaline Phosphatase (56-112) IU/L Creatine Kinase (60-160) IU/L Troponin I (4.0-60.3) pg/mL C-Reactive Protein (0.5-0.9) mg/dL NT-Pro-B Natriuret Pep (<=450) pg/mL Total Protein (6.0-8.0) g/dL Albumin (3.2-4.6) g/dL Globulin g/dL Albumin/Globulin Ratio Procalcitonin 09/24/19 09/24/19 Range/Units 06:20 06:20 WBC (4.5-12.0) X10-3/uL RBC (4.30-5.75) x10(6)uL Hgb (13.5-17.8) g/dL Hct (30.0-51.3) % MCV (80-96) fL MCH (27.7-33.6) pg MCHC (32.2-35.4) g/dL RDW (11.5-15.5) % Plt Count (125-369) X10(3)uL MPV (7.4-10.4) fL Add Manual Diff Neutrophils % (Manual) (46-82) % Band Neutrophils % (0-6) % Lymphocytes % (Manual) (13-37) % Monocytes % (Manual) (4-12) % Hypersegmented Neuts Toxic Granulation (NOT SEEN) ESR (0-15) mm/hr PT 22.8 H (9.0-11.1) sec INR 2.49 H (1.00-1.24) ABG pH (7.35-7.45) ABG pCO2 (35-45) mmHg ABG pO2 (83-108) mmHg ABG HCO3 (22-26) mmol/L ABG O2 Saturation (96-97) % ABG Base Excess (-2-2) Pepe Test O2 Delivery Device Oxygen Flow Rate L Sodium (135-145) mmol/L Potassium (3.5-5.3) mmol/L Chloride (100-110) mmol/L Carbon Dioxide (21-32) mmol/L BUN (7-18) mg/dL Creatinine (0.70-1.30) mg/dL Est Cr Clr Drug Dosing mL/min Estimated GFR (MDRD) (>60) BUN/Creatinine Ratio (9-20) Glucose (80-116) mg/dL POC Glucose (80-116) mg/dL Lactic Acid (0.4-2.0) mmol/L Calcium (8.6-10.2) mg/dL Magnesium (1.8-2.5) mg/dL Total Bilirubin (0.1-1.3) mg/dL AST (5-25) IU/L ALT (12-36) U/L Alkaline Phosphatase (56-112) IU/L Creatine Kinase (60-160) IU/L Troponin I 43348.8 H* (4.0-60.3) pg/mL C-Reactive Protein (0.5-0.9) mg/dL NT-Pro-B Natriuret Pep (<=450) pg/mL Total Protein (6.0-8.0) g/dL Albumin (3.2-4.6) g/dL Globulin g/dL Albumin/Globulin Ratio Procalcitonin Ahsan Results Last 24 Hours: Microbiology 09/23/19 13:31 Influenza Type A Antigen Screen - Final Nasopharyngeal Swab NEGATIVE INFLUENZA A VIRUS AG REFERENCE RANGE: NEGATIVE Influenza Type B Antigen Screen - Final NEGATIVE INFLUENZA B VIRUS AG REFERENCE RANGE: NEGATIVE Med Orders - Current: Current Medications Acetaminophen (Tylenol) 650 mg PO Q4H PRN PRN Reason: Pain (Mild 1-3)/fever Albuterol/Ipratropium (Duoneb 3.0-0.5 Mg/3 Ml) 3 ml NEB QIDRT PRN PRN Reason: Wheezing Aspirin (Halfprin) 81 mg PO DAILY [facility] Last Admin: 09/24/19 08:14 Dose: 81 mg Ceftriaxone Sodium (Rocephin) 1 gm IVPUSH Q24H [facility] Last Admin: 09/23/19 15:54 Dose: 1 gm Docusate Sodium (Dok) 250 mg PO DAILY [facility] Last Admin: 09/24/19 08:19 Dose: 250 mg Azithromycin 500 mg/ Sodium (Chloride) 250 mls @ 250 mls/hr IV Q24H [facility] Last Admin: 09/23/19 16:01 Dose: 250 mls/hr Losartan Potassium (Cozaar) 50 mg PO DAILY [facility] Last Admin: 09/24/19 08:14 Dose: 50 mg Metformin HCl (Glucophage) 500 mg PO BIDMEALS [facility] Last Admin: 09/24/19 08:13 Dose: 500 mg Metoprolol Tartrate (Lopressor) 50 mg PO BID [facility] Last Admin: 09/24/19 08:15 Dose: 50 mg Non-Formulary Compounded Eye Drop Prednisolone 1%, Moxifloxacin1.1%, Bromfenac 0.09% 0 each EYERT BID [facility] Stop: 09/29/19 21:01 Last Admin: 09/24/19 08:16 Dose: 1 each Non-Formulary Compounded Eye Drop Prednisolone 1%, Moxifloxacin1.1%, Bromfenac 0.09% 0 each EYERT DAILY [facility] Stop: 10/06/19 09:01 Pantoprazole Sodium (Protonix) 40 mg PO DAILY [facility] Simvastatin (Zocor) 40 mg PO BEDTIME [facility] Last Admin: 09/23/19 20:31 Dose: 40 mg Sodium Chloride (Saline Flush) 10 ml FLUSH ASDIRECTED PRN PRN Reason: Keep Vein Open Last Admin: 09/24/19 08:23 Dose: 10 ml Warfarin Sodium (Coumadin Sliding Scale) 0 each PO 1600 KIM Warfarin Sodium (Coumadin) 1.25 mg PO ONETIME ONE Stop: 09/24/19 16:01 Discontinued Medications Non-Formulary Compounded Eye Drop Prednisolone 1%, Moxifloxacin1.1%, Bromfenac 0.09% 0 each EYERT 1600 KIM Last Admin: 09/23/19 17:33 Dose: Not Given Warfarin Sodium 5 mg/ Warfarin (Sodium 2.5 mg) 7.5 mg PO 1600 ONE Stop: 09/23/19 16:01 Last Admin: 09/23/19 16:09 Dose: 7.5 mg - Exam General: Alert, Oriented HEENT: Pupils Equal Neck: Supple Lungs: Clear to Auscultation Cardiovascular: Regular Rate Extremities: Normal Inspection Skin: Warm Psy/Mental Status: Alert Sepsis Event Note - Evaluation Sepsis Screening Result: No Definite Risk - Focused Exam Vital Signs: Vital Signs Temp Pulse Pulse Resp BP BP Pulse Ox 09/24/19 08:15 78 137/75 09/24/19 08:14 137/75 09/24/19 00:00 98.4 F 78 20 146/76 H 97 Date Exam was Performed: 09/24/19 Time Exam was Performed: 08:49 - Problem List & Annotations (1) CAP (community acquired pneumonia) SNOMED Code(s): 792601174 Code(s): J18.9 - PNEUMONIA, UNSPECIFIED ORGANISM Status: Acute Current Visit: Yes Qualifiers: Laterality: left (2) SOB (shortness of breath) SNOMED Code(s): 590872212 Code(s): R06.02 - SHORTNESS OF BREATH Status: Acute Current Visit: Yes (3) Elevated troponin SNOMED Code(s): 536691847, 191506407, 193059886 Code(s): R79.89 - OTHER SPECIFIED ABNORMAL FINDINGS OF BLOOD CHEMISTRY Status: Acute Current Visit: Yes (4) S/P AVR Status: Chronic Current Visit: Yes (5) Long-term (current) use of anticoagulants, INR goal 2.5-3.5 SNOMED Code(s): 936596523, 626220337 Code(s): Z79.01 - [facility] (CURRENT) USE OF ANTICOAGULANTS Status: Chronic Current Visit: Yes (6) CAD (coronary artery disease) SNOMED Code(s): 36473351 Code(s): I25.10 - ATHSCL HEART DISEASE OF [place] CORONARY ARTERY W/O ANG PCTRS Status: Chronic Current Visit: Yes Qualifiers: Coronary Disease-Associated Artery/Lesion type: [place] artery Associated angina: without angina (7) Diabetes type 2, controlled SNOMED Code(s): 11480040, 536181203 Code(s): E11.9 - TYPE 2 DIABETES MELLITUS WITHOUT COMPLICATIONS Status: Chronic Current Visit: Yes (8) HTN (hypertension) SNOMED Code(s): 08598040 Code(s): I10 - ESSENTIAL (PRIMARY) HYPERTENSION Status: Chronic Current Visit: Yes Qualifiers: Hypertension type: essential hypertension Qualified Code(s): I10 - Essential (primary) hypertension - Problem List Review Problem List Initiated/Reviewed/Updated: Yes - My Orders Last 24 Hours: My Active Orders 09/23/19 12:56 Patient Status [ADT] Routine Blood Glucose Check, Bedside [RC] TIDMEALS Height and Weight [RC] 06 Oxygen Therapy [RC] PRN Up With Assistance [RC] ASDIRECTED Vital Signs [RC] Q8H Acetaminophen [Tylenol] 650 mg PO Q4H PRN Albuterol/Ipratropium [DuoNeb 3.0-0.5 MG/3 ML] 3 ml NEB QIDRT PRN Sodium Chloride 0.9% [Saline Flush] 10 ml FLUSH ASDIRECTED PRN Blood Culture x2 Reflex Set [OM.PC] Urgent Peripheral IV Insertion Adult [OM.PC] Routine Resuscitation Status Routine EKG 12 Lead [EK] Stat 09/23/19 12:58 RT Aerosol Therapy [RC] ASDIRECTED 09/23/19 13:00 cefTRIAXone [Rocephin] 1 gm IVPUSH Q24H 09/23/19 13:30 Azithromycin [Zithromax] 500 mg Sodium Chloride 0.9% [Normal Saline] 250 ml IV Q24H 09/23/19 13:50 CULTURE BLOOD [BC] Urgent 09/23/19 14:00 CULTURE BLOOD [BC] Urgent 09/23/19 14:09 CORONAVIRUS COVID-19, SHADE Stat RESPIRATORY PROFILE, PCR Stat 09/23/19 16:00 Warfarin Sliding Scale [Coumadin Sliding Scale] 0 each PO 1600 09/23/19 18:00 metFORMIN [Glucophage] 500 mg PO BIDMEALS 09/23/19 21:00 Metoprolol Tartrate [Lopressor] 50 mg PO BID Non-Formulary Medication [NF Drug] 0 each EYERT BID Simvastatin [Zocor] 40 mg PO BEDTIME 09/24/19 08:48 EKG Documentation Completion [RC] ASDIRECTED EKG 12 Lead [EK] Stat 09/24/19 09:00 Aspirin [Halfprin] 81 mg PO DAILY Docusate Sodium [Dok] 250 mg PO DAILY Losartan [Cozaar] 50 mg PO DAILY Pantoprazole [ProTONIX] 40 mg PO DAILY 09/24/19 16:00 Warfarin [Coumadin] 1.25 mg PO ONETIME ONE 09/25/19 05:11 BASIC METABOLIC PANEL,BMP [CHEM] AM CBC WITH AUTO DIFF [HEME] AM PRO B-TYPE NATRIUR PEPT,BNPPRO [CHEM] DAILY TROPONIN I [CHEM] AM 09/25/19 13:02 Chest w Cont [CT] Routine 09/26/19 05:11 PRO B-TYPE NATRIUR PEPT,BNPPRO [CHEM] DAILY 09/30/19 09:00 Non-Formulary Medication [NF Drug] 0 each EYERT DAILY - Plan Plan:: I am waiting for the COVID 19. CXR no new infiltrates. Trop has trended down and he remains asymptomatic.Repeat EKG today and labs in AM. Try one dose of Lasix
[2019-09-24] MEDS ORDERED: Warfarin 5 MG Tab PO SCH (09:00)
[2019-09-24] MEDS ORDERED: HYDROCHLOROTHIAZIDE PO SCH (09:00)
[2019-09-24] MEDS ORDERED: Non-Formulary Medication 1 Each (Omeprazole [Omeprazole] 20 MG) PO SCH (09:00)
[2019-09-24] MEDS ORDERED: Non-Formulary Medication 1 Each (Fluticasone/Vilanterol 1 EACH) IH SCH (09:00)
[2019-09-24] MEDS ORDERED: IRBESARTAN PO SCH (09:00)
[2019-09-24] MEDS ORDERED: [UNRECOGNIZED DRUG - OTHER] PO SCH (09:00)
[2019-09-24] MEDS: Pantoprazole 40 MG Tab.CR PO SCH (10:00)
[2019-09-24] MEDS ORDERED: Warfarin 2.5 MG Tab PO ONE (16:00)
[2019-09-24] MEDS: cefTRIAXone 1 GM Vial IVPUSH SCH (16:18)
[2019-09-24] MEDS: Azithromycin 500 MG in Sodium Chloride 0.9% 250 ML IV SCH (16:26)
[2019-09-24] MEDS: Simvastatin 40 MG Tab PO SCH (21:36)
--- NOTE | 2019-09-25 08:58 | PCM.PN ---
- General Info Date of Service: 09/25/19 Subjective Update: Feels better today. Mild cough here and there. No chest pain. No FEVER - Review of Systems General: Reports: No Symptoms HEENT: Reports: No Symptoms Pulmonary: Reports: Cough Cardiovascular: Denies: Chest Pain, Orthopnea Gastrointestinal: Reports: No Symptoms Musculoskeletal: Reports: No Symptoms - Patient Data Vitals - Most Recent: Last Vital Signs Temp 98.2 F 09/24/19 23:06 Pulse 84 09/24/19 23:06 Resp 18 09/24/19 23:06 BP 125/69 09/24/19 23:06 Pulse Ox 95 09/24/19 23:06 Weight - Most Recent: 91.399 kg I&O - Last 24 Hours: Intake & Output 09/24/19 09/25/19 09/25/19 22:59 06:59 14:59 Intake Total 490 300 Output Total 200 300 Balance 290 0 Lab Results Last 24 Hours: Laboratory Results - last 24 hr 09/24/19 09/24/19 09/25/19 Range/Units 12:02 17:59 06:40 WBC 13.8 H (4.5-12.0) X10-3/uL RBC 5.47 (4.30-5.75) x10(6)uL Hgb 15.9 (13.5-17.8) g/dL Hct 49.2 (30.0-51.3) % MCV 89.8 (80-96) fL MCH 29.0 (27.7-33.6) pg MCHC 32.3 (32.2-35.4) g/dL RDW 13.2 (11.5-15.5) % Plt Count 131 (125-369) X10(3)uL MPV 9.4 (7.4-10.4) fL Neut % (Auto) 76.9 (46-82) % Lymph % (Auto) 12.1 L (13-37) % [place] % (Auto) 8.4 (4-12) % Eos % (Auto) 1 (1.0-5.0) % Baso % (Auto) 2 (0-2) % Neut # (Auto) 10.5 H (1.6-8.3) # Lymph # (Auto) 1.7 (0.6-5.0) # [place] # (Auto) 1.2 (0.0-1.3) # Eos # (Auto) 0.1 (0.0-0.8) # Baso # (Auto) 0.3 H (0.0-0.2) # Sodium (135-145) mmol/L Potassium (3.5-5.3) mmol/L Chloride (100-110) mmol/L Carbon Dioxide (21-32) mmol/L BUN (7-18) mg/dL Creatinine (0.70-1.30) mg/dL Est Cr Clr Drug Dosing mL/min Estimated GFR (MDRD) (>60) BUN/Creatinine Ratio (9-20) Glucose (80-116) mg/dL POC Glucose 122 H D 122 H (80-116) mg/dL Calcium (8.6-10.2) mg/dL Troponin I (4.0-60.3) pg/mL NT-Pro-B Natriuret Pep (<=450) pg/mL 09/25/19 09/25/19 Range/Units 06:40 06:40 WBC (4.5-12.0) X10-3/uL RBC (4.30-5.75) x10(6)uL Hgb (13.5-17.8) g/dL Hct (30.0-51.3) % MCV (80-96) fL MCH (27.7-33.6) pg MCHC (32.2-35.4) g/dL RDW (11.5-15.5) % Plt Count (125-369) X10(3)uL MPV (7.4-10.4) fL Neut % (Auto) (46-82) % Lymph % (Auto) (13-37) % [place] % (Auto) (4-12) % Eos % (Auto) (1.0-5.0) % Baso % (Auto) (0-2) % Neut # (Auto) (1.6-8.3) # Lymph # (Auto) (0.6-5.0) # [place] # (Auto) (0.0-1.3) # Eos # (Auto) (0.0-0.8) # Baso # (Auto) (0.0-0.2) # Sodium 136 (135-145) mmol/L Potassium 4.2 (3.5-5.3) mmol/L Chloride 99 L (100-110) mmol/L Carbon Dioxide 29 (21-32) mmol/L BUN 27 H (7-18) mg/dL Creatinine 1.0 (0.70-1.30) mg/dL Est Cr Clr Drug Dosing 60.80 mL/min Estimated GFR (MDRD) > 60 (>60) BUN/Creatinine Ratio 27.0 H (9-20) Glucose 113 (80-116) mg/dL POC Glucose (80-116) mg/dL Calcium 8.6 (8.6-10.2) mg/dL Troponin I 7324.8 H* (4.0-60.3) pg/mL NT-Pro-B Natriuret Pep 2359 H* (<=450) pg/mL Ahsan Results Last 24 Hours: Microbiology 09/23/19 14:00 Aerobic Blood Culture - Preliminary Blood - Venous - Lab Draw NO GROWTH AFTER 1 DAY Anaerobic Blood Culture - Preliminary NO GROWTH AFTER 1 DAY 09/23/19 13:50 Aerobic Blood Culture - Preliminary Blood - Venous NO GROWTH AFTER 1 DAY Anaerobic Blood Culture - Preliminary NO GROWTH AFTER 1 DAY Med Orders - Current: Current Medications Acetaminophen (Tylenol) 650 mg PO Q4H PRN PRN Reason: Pain (Mild 1-3)/fever Albuterol/Ipratropium (Duoneb 3.0-0.5 Mg/3 Ml) 3 ml NEB QIDRT PRN PRN Reason: Wheezing Aspirin (Halfprin) 81 mg PO DAILY COUNTS INCLUDE 234 BEDS AT THE [facility] Last Admin: 09/24/19 08:14 Dose: 81 mg Ceftriaxone Sodium (Rocephin) 1 gm IVPUSH Q24H COUNTS INCLUDE 234 BEDS AT THE [facility] Last Admin: 09/24/19 16:18 Dose: 1 gm Docusate Sodium (Dok) 250 mg PO DAILY COUNTS INCLUDE 234 BEDS AT THE [facility] Last Admin: 09/24/19 08:19 Dose: 250 mg Azithromycin 500 mg/ Sodium (Chloride) 250 mls @ 250 mls/hr IV Q24H COUNTS INCLUDE 234 BEDS AT THE [facility] Last Admin: 09/24/19 16:26 Dose: 250 mls/hr Losartan Potassium (Cozaar) 50 mg PO DAILY COUNTS INCLUDE 234 BEDS AT THE [facility] Last Admin: 09/24/19 08:14 Dose: 50 mg Metformin HCl (Glucophage) 500 mg PO BIDMEALS COUNTS INCLUDE 234 BEDS AT THE [facility] Last Admin: 03/25/20 17:57 Dose: 500 mg Metoprolol Tartrate (Lopressor) 50 mg PO BID COUNTS INCLUDE 234 BEDS AT THE [facility] Last Admin: 09/24/19 21:33 Dose: 50 mg Non-Formulary Compounded Eye Drop Prednisolone 1%, Moxifloxacin1.1%, Bromfenac 0.09% 0 each EYERT BID COUNTS INCLUDE 234 BEDS AT THE [facility] Stop: 09/29/19 21:01 Last Admin: 09/24/19 21:33 Dose: 1 each Non-Formulary Compounded Eye Drop Prednisolone 1%, Moxifloxacin1.1%, Bromfenac 0.09% 0 each EYERT DAILY COUNTS INCLUDE 234 BEDS AT THE [facility] Stop: 10/06/19 09:01 Pantoprazole Sodium (Protonix) 40 mg PO DAILY COUNTS INCLUDE 234 BEDS AT THE [facility] Last Admin: 09/24/19 10:00 Dose: 40 mg Simvastatin (Zocor) 40 mg PO BEDTIME COUNTS INCLUDE 234 BEDS AT THE [facility] Last Admin: 09/24/19 21:36 Dose: 40 mg Sodium Chloride (Saline Flush) 10 ml FLUSH ASDIRECTED PRN PRN Reason: Keep Vein Open Last Admin: 09/24/19 17:32 Dose: 10 ml Warfarin Sodium (Coumadin Sliding Scale) 0 each PO 1600 COUNTS INCLUDE 234 BEDS AT THE [facility] Discontinued Medications Ceftriaxone Sodium (Rocephin) 1 gm IVPUSH Q24H COUNTS INCLUDE 234 BEDS AT THE [facility] Last Admin: 09/23/19 15:54 Dose: 1 gm Furosemide (Lasix) 40 mg IVPUSH NOW ONE Stop: 09/24/19 08:53 Last Admin: 09/24/19 10:30 Dose: 40 mg Azithromycin 500 mg/ Sodium (Chloride) 250 mls @ 250 mls/hr IV Q24H COUNTS INCLUDE 234 BEDS AT THE [facility] Last Admin: 09/23/19 16:01 Dose: 250 mls/hr Non-Formulary Compounded Eye Drop Prednisolone 1%, Moxifloxacin1.1%, Bromfenac 0.09% 0 each EYERT 1600 COUNTS INCLUDE 234 BEDS AT THE [facility] Last Admin: 09/23/19 17:33 Dose: Not Given Warfarin Sodium 5 mg/ Warfarin (Sodium 2.5 mg) 7.5 mg PO 1600 ONE Stop: 09/23/19 16:01 Last Admin: 09/23/19 16:09 Dose: 7.5 mg Warfarin Sodium (Coumadin) 1.25 mg PO ONETIME ONE Stop: 09/24/19 16:01 Last Admin: 09/24/19 16:14 Dose: 1.25 mg - Exam General: Alert, Oriented Neck: Supple Lungs: Clear to Auscultation Cardiovascular: Regular Rate Sepsis Event Note - Evaluation Sepsis Screening Result: No Definite Risk - Focused Exam Vital Signs: Vital Signs Temp Pulse Pulse Resp BP BP Pulse Ox 09/24/19 23:06 98.2 F 84 18 125/69 95 09/24/19 21:33 84 125/69 Date Exam was Performed: 09/25/19 Time Exam was Performed: 08:56 - Problem List & Annotations (1) CAP (community acquired pneumonia) SNOMED Code(s): 604455638 Code(s): J18.9 - PNEUMONIA, UNSPECIFIED ORGANISM Status: Acute Current Visit: Yes Qualifiers: Laterality: left (2) SOB (shortness of breath) SNOMED Code(s): 318772519 Code(s): R06.02 - SHORTNESS OF BREATH Status: Acute Current Visit: Yes (3) Elevated troponin SNOMED Code(s): 821563013, 727950325, 591579765 Code(s): R79.89 - OTHER SPECIFIED ABNORMAL FINDINGS OF BLOOD CHEMISTRY Status: Acute Current Visit: Yes (4) S/P AVR Status: Chronic Current Visit: Yes (5) Long-term (current) use of anticoagulants, INR goal 2.5-3.5 SNOMED Code(s): 069383300, 791971806 Code(s): Z79.01 - JAIL (CURRENT) USE OF ANTICOAGULANTS Status: Chronic Current Visit: Yes (6) CAD (coronary artery disease) SNOMED Code(s): 18076714 Code(s): I25.10 - ATHSCL HEART DISEASE OF [place] CORONARY ARTERY W/O ANG PCTRS Status: Chronic Current Visit: Yes Qualifiers: Coronary Disease-Associated Artery/Lesion type: [place] artery Associated angina: without angina (7) Diabetes type 2, controlled SNOMED Code(s): 32589935, 017731916 Code(s): E11.9 - TYPE 2 DIABETES MELLITUS WITHOUT COMPLICATIONS Status: Chronic Current Visit: Yes (8) HTN (hypertension) SNOMED Code(s): 04390231 Code(s): I10 - ESSENTIAL (PRIMARY) HYPERTENSION Status: Chronic Current Visit: Yes Qualifiers: Hypertension type: essential hypertension Qualified Code(s): I10 - Essential (primary) hypertension - Problem List Review Problem List Initiated/Reviewed/Updated: Yes - My Orders Last 24 Hours: My Active Orders 09/24/19 08:48 EKG 12 Lead [EK] Stat 09/24/19 09:00 Incentive Breathing [RT Incentive Spirometry] [RC] Q2HWA Aspirin [Halfprin] 81 mg PO DAILY Docusate Sodium [Dok] 250 mg PO DAILY Losartan [Cozaar] 50 mg PO DAILY Pantoprazole [ProTONIX] 40 mg PO DAILY 09/24/19 14:33 Code Status [Resuscitation Status] Routine 09/24/19 16:00 cefTRIAXone [Rocephin] 1 gm IVPUSH Q24H 09/24/19 16:30 Azithromycin [Zithromax] 500 mg Sodium Chloride 0.9% [Normal Saline] 250 ml IV Q24H 09/25/19 07:51 INR,PT,PROTHROMBIN TIME [COAG] DAILY 09/25/19 13:02 Chest w Cont [CT] Routine 09/26/19 05:11 CBC WITH AUTO DIFF [HEME] AM PRO B-TYPE NATRIUR PEPT,BNPPRO [CHEM] DAILY TROPONIN I [CHEM] AM 09/26/19 07:51 INR,PT,PROTHROMBIN TIME [COAG] DAILY 09/26/19 08:55 Echo Comp wo Cont [US] Timed 09/27/19 07:51 INR,PT,PROTHROMBIN TIME [COAG] DAILY 09/28/19 07:51 INR,PT,PROTHROMBIN TIME [COAG] DAILY 09/29/19 07:51 INR,PT,PROTHROMBIN TIME [COAG] DAILY 09/30/19 09:00 Non-Formulary Medication [NF Drug] 0 each EYERT DAILY - Plan Plan:: I am waiting for the COVID 19. CXR no new infiltrates. Trop has trended down and he remains asymptomatic.Repeat lasix 20 mg orally.ECHO tomorrow.Cancel CT
[2019-09-25] MEDS: metFORMIN 500 MG Tab PO SCH ×2 (09:59→18:01)
[2019-09-25] MEDS: Losartan 50 MG Tab PO SCH (10:00)
[2019-09-25] MEDS: Docusate Sodium 250 MG Cap PO SCH (10:00)
[2019-09-25] MEDS: Metoprolol Tartrate 50 MG Tab PO SCH ×2 (10:01→21:25)
[2019-09-25] MEDS: BROMFENAC 0.09% EYERT SCH ×2 (10:01→21:26)
[2019-09-25] MEDS: PREDNISOLONE EYERT SCH ×2 (10:01→21:26)
[2019-09-25] MEDS: MOXIFLOXACIN EYERT SCH ×2 (10:01→21:26)
[2019-09-25] MEDS: Aspirin 81 MG Tab.EC PO SCH (10:01)
[2019-09-25] MEDS: Pantoprazole 40 MG Tab.CR PO SCH (10:02)
[2019-09-25] MEDS ORDERED: Warfarin 5 MG Tab PO SCH (16:00)
[2019-09-25] MEDS: cefTRIAXone 1 GM Vial IVPUSH SCH (16:47)
[2019-09-25] MEDS: Azithromycin 500 MG in Sodium Chloride 0.9% 250 ML IV SCH (16:50)
[2019-09-25] MEDS: Sodium Chloride 0.9% 10 ML Syringe FLUSH PRN (18:00)
[2019-09-25] MEDS: Simvastatin 40 MG Tab PO SCH (21:24)
[2019-09-26] MEDS: Aspirin 81 MG Tab.EC PO SCH (08:55)
[2019-09-26] MEDS: Docusate Sodium 250 MG Cap PO SCH (08:55)
[2019-09-26] MEDS: Pantoprazole 40 MG Tab.CR PO SCH (08:55)
[2019-09-26] MEDS: metFORMIN 500 MG Tab PO SCH (08:55)
[2019-09-26] MEDS: Losartan 50 MG Tab PO SCH (08:55)
[2019-09-26] MEDS: MOXIFLOXACIN EYERT SCH (08:56)
[2019-09-26] MEDS: PREDNISOLONE EYERT SCH (08:56)
[2019-09-26] MEDS: Metoprolol Tartrate 50 MG Tab PO SCH (08:56)
[2019-09-26] MEDS: BROMFENAC 0.09% EYERT SCH (08:56)
[2019-09-26 08:57] VITALS: BP 138/67
[2019-09-26 08:59] VITALS: PULSE 78
[2019-09-26] MEDS ORDERED: Amoxicillin/Clavulanate K 875-125 MG Tab PO SCH (11:00)
--- NOTE | 2019-09-26 23:48 | DISCH ---
DISCHARGE DATE: 09/26/2019 REASON FOR VISIT: Bilateral pneumonia with mild respiratory distress. HISTORY OF PRESENT ILLNESS: Radu Torre is a 74-year-old male admitted from [place] in [place], consultation Dr. Lcokwood and Dolly Brizuela, VINICIO. Presented with shortness of breath, low-grade fever, unproductive cough, fleeting chest pain, and a sense of reduced well-being. He had a complicated pneumonia in June 2017. CT noted some nodularity. Was placed on Breo. Symptoms have intensified when seen in clinic, was found to have left-sided pneumonia. No recent travel or high risk for COVID-19, but admitted to hospital for treatment. Please see Dr. Lockwood's history and physical. HOSPITAL COURSE: Patient was maintained on appropriate respiratory precautions during his hospital stay. He was given 3 days of intravenous ceftriaxone and azithromycin. Fever defervesced. Saturations remain comfortable. O2 was weaned and discontinued, and was in good spirits. LABORATORY STUDIES: Blood cultures negative x2 72 hours duration. Nasopharyngeal swab A and B were negative. COVID pending. At the time of discharge, was comfortable, ambulatory and in good spirits. COVID-19 testing pending. PHYSICAL EXAMINATION: VITAL SIGNS: 37.1, 78, 138/67, 14 and 97. GENERAL: Elderly gentleman, cooperative, conversant. HEENT: Unremarkable. NECK: Supple. Thyroid small. CHEST: Good clear lung sounds throughout all lung cannon. HEART: No ectopy or murmur. ABDOMEN: Benign. SKIN: Without rash. ASSESSMENT: Left-sided pneumonia. PLAN: Discharged home, respiratory precautions. Await results of COVID-19 testing. We will discharge home on home medications along with Augmentin 875 b.i.d. 7 days duration. Clinic follow up in 2 weeks duration with Dolly Brizuela or Vitaliy Newton. 30-minute visit, planning, treatment and discharge intervention. /[id number] PEDRO/DANII
[2019-09-30] MEDS ORDERED: BROMFENAC 0.09% EYERT SCH (09:00)
[2019-09-30] MEDS ORDERED: MOXIFLOXACIN EYERT SCH (09:00)
[2019-09-30] MEDS ORDERED: PREDNISOLONE EYERT SCH (09:00)
[2019-10-02 17:08] LABS: ADENOVIRUS Not Detected (Not Detected); BORDETELLA PERTUSSIS Not Detected (Not Detected); CHLAMYDOPHILA PNEUMONIAE Not Detected (Not Detected); CORONAVIRUS 229E Not Detected (Not Detected); CORONAVIRUS HKU1 Not Detected (Not Detected); CORONAVIRUS NL63 Not Detected (Not Detected); CORONAVIRUS OC43 Not Detected (Not Detected); HUMAN METAPNEUMOVIRUS Not Detected (Not Detected); HUMAN RHINOVIRUS/ENTEROVIRUS Not Detected (Not Detected); INFLUENZA A Not Detected (Not Detected); INFLUENZA A/H1 Not Detected (Not Detected); INFLUENZA A/H1-2009 Not Detected (Not Detected); INFLUENZA A/H3 Not Detected (Not Detected); INFLUENZA B Not Detected (Not Detected); MYCOPLASMA PNEUMONIAE Not Detected (Not Detected); PARAINFLUENZA 1 Not Detected (Not Detected); PARAINFLUENZA 2 Not Detected (Not Detected); PARAINFLUENZA 3 Not Detected (Not Detected); PARAINFLUENZA 4 Not Detected (Not Detected); RESPIRATORY SYNCYTIAL VIRUS Not Detected (Not Detected)
== END 2019-09-26 14:00 | disposition home or self-care (01) | DRG 195 ==
LOC: FB.MS 11:27
PROVIDERS: ADMIT Family Medicine; ATTEND Family Medicine
DX: J18.9 Pneumonia, unspecified organism (principal); I25.10 Atherosclerotic heart disease of native coronary artery without angina pectoris; E78.00 Pure hypercholesterolemia, unspecified; I10 Essential (primary) hypertension; K21.9 Gastro-esophageal reflux disease without esophagitis; M19.90 Unspecified osteoarthritis, unspecified site; E11.9 Type 2 diabetes mellitus without complications; R79.89 Other specified abnormal findings of blood chemistry; Z88.2 Allergy status to sulfonamides; Z79.01 Long term (current) use of anticoagulants; Z79.84 Long term (current) use of oral hypoglycemic drugs; Z79.82 Long term (current) use of aspirin; Z79.899 Other long term (current) drug therapy; Z98.49 Cataract extraction status, unspecified eye
CPT/HCPCS: 36410; 36415; 36600; 80048; 80053; 82550; 82803; 82962; 83605; 83735; 83880; 84145; 84484; 85025; 85610; 85651; 86140; 87040; 87633; 87804; 87804-59; 93005; 93306; 94150; 94760; A9270-GY; J0456; J0696; J1940; J7050; U0002

== ENCOUNTER 2020-12-04 09:49 | Observation (INO) | payer MEDICARE, OTHER ==
[2020-12-04] MEDS ORDERED: Alum Hydroxide/Mag Hydroxide 30 ML, Lidocaine 2% 15 ML PO ONE ×2 (09:57)
--- NOTE | 2020-12-04 10:13 | EDM.PDOC ---
ED HPI GENERAL MEDICAL PROBLEM - General Stated Complaint: CHEST PAIN Time Seen by Provider: 12/04/20 09:49 Source of Information: Reports: Patient History Limitations: Reports: No Limitations - History of Present Illness INITIAL COMMENTS - FREE TEXT/NARRATIVE: c/o cp lives alone, ate a chicken sandwich for supper, awoke at midnight with burning pain in lower sternum without radiation, took several stomach pills but did not know their names, pain not better at bfast which did not make the pain better or worse did not take NTG has had AVR, on warfarin has CAD, had MD one yr ago does not know names of any of his meds, gets a bubble pack from pharmacy and takes the meds in each bubble as Rx no sob, no cough, no f/c/d pain 8/10 here on arrival altho does not appear in distress, EKG with no ST changes with 8/10 pain Indigestion Pain Score (Numeric/FACES): 8 - Related Data Allergies Allergy/AdvReac Type Severity Reaction Status Date / Time Sulfa (Sulfonamide Allergy Rash Verified 12/04/20 10:22 Antibiotics) Home Meds: Home Meds Losartan [Cozaar] 50 mg PO DAILY 12/01/17 [History] Simvastatin [Zocor] 40 mg PO BEDTIME 12/01/17 [History] Warfarin [Coumadin] 5 mg PO SUTUWETHFRSA 12/01/17 [History] metFORMIN [Glucophage] 500 mg PO BIDMEALS 12/01/17 [History] Aspirin 81 mg PO DAILY 05/08/19 [History] Omeprazole 20 mg PO DAILY 07/28/19 [History] Albuterol Sulfate [Albuterol Sulfate Hfa] 2 puff IH Q4H PRN 08/11/19 [History] Carboxymethylcellulose Sodium [Thera Tears] 1 each OP ASDIRECTED 09/04/19 [History] Docusate Sodium 250 mg PO DAILY 09/23/19 [History] Metoprolol Tartrate 50 mg PO BID 09/23/19 [History] Warfarin [Coumadin] 2.5 mg PO MO 09/23/19 [History] Acetaminophen [Tylenol] 650 mg PO Q4H PRN tablet 09/26/19 [Rx] Amoxicillin/Clavulanate K [Augmentin 875-125 MG] 1 tab PO Q12HR #14 tablet 09/26/19 [Rx] Aspirin [Halfprin] 81 mg PO DAILY tab.ec 09/26/19 [Rx] Losartan [Cozaar] 50 mg PO DAILY tablet 09/26/19 [Rx] Metoprolol Tartrate [Lopressor] 50 mg PO BID tablet 09/26/19 [Rx] Non-Formulary Medication [NF Drug] 0 each EYERT BID each 09/26/19 [Rx] Non-Formulary Medication [NF Drug] 0 each EYERT DAILY each 09/26/19 [Rx] Sodium Chloride 0.9% [Saline Flush] 10 ml FLUSH ASDIRECTED PRN syringe 09/26/19 [Rx] Warfarin [Coumadin] 5 mg PO 1600 tablet 09/26/19 [Rx] Past Medical History HEENT History: Reports: Cataract, Hard of Hearing, Impaired Vision, Other (See Below) Other HEENT History: MEIBOMIAN GLAND DYSFUNCTION, BILATERAL BOTH UPPER & LOWER LIDS. TEAR FILM INSUFFICIENCY. HYPEROPIA. REGULAR ASTIGMATISM OF BOTH EYES. PRESBYOPIA. DENTAL CARRIES Cardiovascular History: Reports: CAD, Heart Valve Replacement, High Cholesterol, Hypertension Other Cardiovascular History: AORTIC STENOSIS Respiratory History: Reports: Other (See Below) Other Respiratory History: former smoker, has inhaler as needed. Gastrointestinal History: Reports: Cholelithiasis, GERD Musculoskeletal History: Reports: Arthritis Neurological History: Reports: None Psychiatric History: Reports: None Endocrine/Metabolic History: Reports: Diabetes, Type II Hematologic History: Reports: Anticoagulation Therapy Immunologic History: Reports: None Oncologic (Cancer) History: Reports: None Dermatologic History: Reports: None - Infectious Disease History Infectious Disease History: Reports: Chicken Pox, Mumps - Past Surgical History HEENT Surgical History: Reports: Cataract Surgery Cardiovascular Surgical History: Reports: Coronary Artery Bypass, Valve Replacement Male Surgical History: Reports: Other (See Below) Other Male Surgeries/Procedures: HERNIA WITH OBSTRUCTION. GALLSTONES. HERNIA REPAIR Social & Family History - Family History Family Medical History: No Pertinent Family History - Caffeine Use Caffeine Use: Reports: Coffee, Soda Caffeine Use Comment: 4 cups coffee per day and 2 cans pop per day. ED ROS GENERAL - Review of Systems Review Of Systems: See Below Constitutional: Reports: No Symptoms HEENT: Reports: No Symptoms Respiratory: Reports: No Symptoms. Denies: Shortness of Breath, Cough Cardiovascular: Reports: Chest Pain Endocrine: Reports: No Symptoms GI/Abdominal: Reports: No Symptoms : Reports: No Symptoms Musculoskeletal: Reports: No Symptoms Skin: Reports: No Symptoms Neurological: Reports: No Symptoms Psychiatric: Reports: No Symptoms Hematologic/Lymphatic: Reports: No Symptoms Immunologic: Reports: No Symptoms ED EXAM, GENERAL - Physical Exam Exam: See Below Exam Limited By: No Limitations General Appearance: Alert, WD/WN, No Apparent Distress Nose: Normal Inspection, Normal Mucosa Throat/Mouth: Normal Inspection, Normal Voice, No Airway Compromise Head: Atraumatic, Normocephalic Neck: Normal Inspection, Supple, Non-Tender, Full Range of Motion. No: Lymphadenopathy (R), Lymphadenopathy (L) Respiratory/Chest: No Respiratory Distress, Lungs Clear, Normal Breath Sounds, Chest Non-Tender Cardiovascular: Regular Rate, Rhythm, No Edema, Other (harsh 2/6 AMANDA at LSB, quiet precordium) GI/Abdominal: Soft, Non-Tender, No Distention Back Exam: Normal Inspection, Full Range of Motion. No: CVA Tenderness (R), CVA Tenderness (L) Extremities: Normal Inspection, Normal Range of Motion, Non-Tender, No Pedal Edema Neurological: Alert, Oriented, CN II-XII Intact, Normal Cognition, No Motor/Sens ory Deficits Psychiatric: Normal Affect, Normal Mood Skin Exam: Warm, Dry, Intact, Normal Color, No Rash Lymphatic: No Adenopathy #1 Interpretation EKG Date: 12/04/20 Time: 09:52 Rhythm: NSR P-Wave: Present QRS: Normal ST-T: Normal Comparison: No Change (no ST change, SR 67, no active ischemia) #2 Interpretation EKG Date: 12/04/20 Time: 12:22 Rhythm: NSR P-Wave: Present ST-T: Normal QT: Normal (new nausea, no CP, EKG unchanged from previous 2.5h earlier, lower sternal CP/burning gone after GI cocktail, no ischemia) Course - Vital Signs Last Recorded V/S: Last Vital Signs Temp 36.8 C 12/04/20 10:24 Pulse 71 12/04/20 10:24 Resp 18 12/04/20 10:24 BP 136/48 L 12/04/20 10:24 Pulse Ox 97 12/04/20 10:24 - Orders/Labs/Meds Orders: Active Orders 24 hr Category Date Time Status Admission Status [Patient Status] [ADT] Routine ADT 12/04/20 15:13 Ordered EKG Documentation Completion [RC] ASDIRECTED Care 12/04/20 09:53 Active EKG Documentation Completion [RC] ASDIRECTED Care 12/04/20 12:23 Active Abdomen Pelvis w Cont [CT] Stat Exams 12/04/20 11:31 Taken Chest 1V Frontal [CR] Stat Exams 12/04/20 09:52 Taken URINALYSIS W/MICROSCOPIC [UA W/MICROSCOPIC] [URIN] Stat Lab 12/04/20 14:58 Ordered EKG 12 Lead [EK] Routine Ther 12/04/20 09:52 Ordered EKG 12 Lead [EK] Routine Ther 12/04/20 12:23 Ordered Labs: Laboratory Tests 12/04/20 12/04/20 12/04/20 Range/Units 10:02 10:02 10:02 WBC 8.7 (3.2-10.1) x10-3/uL RBC 5.26 (3.90-5.90) x10(6)uL Hgb 15.7 (12.9-17.7) g/dL Hct 47.5 (38.3-50.1) % MCV 90.4 (80.8-98.7) fL MCH 29.9 (27.0-33.3) pg MCHC 33.1 (28.7-35.3) g/dL RDW 13.2 (12.4-15.0) % Plt Count 108 L (117-477) x10(3)uL MPV 9.6 (6.7-11.0) fL Neut % (Auto) 80.4 H (40.3-71.8) % Lymph % (Auto) 8.3 L (15.8-45.3) % [place] % (Auto) 10.6 (5.5-15.2) % Eos % (Auto) 0.4 (0.1-6.8) % Baso % (Auto) 0.3 (0.3-3.8) % Neut # (Auto) 7.0 H (1.7-6.9) x10-3/uL Lymph # (Auto) 0.7 (0.5-4.5) x10-3/uL [place] # (Auto) 0.9 (0.0-1.2) x10-3/uL Eos # (Auto) 0.0 (0.0-0.6) x10-3/uL Baso # (Auto) 0.0 (0.0-0.3) x10-3/uL PT 24.0 H (9.0-11.1) sec INR 2.35 H (1.00-1.24) Sodium 136 (135-145) mmol/L Potassium 4.3 (3.5-5.3) mmol/L Chloride 100 (100-110) mmol/L Carbon Dioxide 29 (21-32) mmol/L BUN 17 D (7-18) mg/dL Creatinine 1.3 (0.70-1.30) mg/dL Est Cr Clr Drug Dosing TNP Estimated GFR (MDRD) 54 L (>60) BUN/Creatinine Ratio 13.1 (9-20) Glucose 166 H (80-116) mg/dL Calcium 8.0 L (8.6-10.2) mg/dL Total Bilirubin 2.0 H (0.1-1.3) mg/dL AST 203 H* D (5-25) IU/L ALT 155 H* D (12-36) U/L Alkaline Phosphatase 125 H (56-112) IU/L Troponin I (4.0-60.3) pg/mL C-Reactive Protein (0.5-0.9) mg/dL NT-Pro-B Natriuret Pep (<=450) pg/mL Total Protein 7.4 (6.0-8.0) g/dL Albumin 3.8 (3.2-4.6) g/dL Globulin 3.6 g/dL Albumin/Globulin Ratio 1.1 Lipase (73-393) U/L 12/04/20 12/04/20 12/04/20 Range/Units 10:02 10:02 13:20 WBC (3.2-10.1) x10-3/uL RBC (3.90-5.90) x10(6)uL Hgb (12.9-17.7) g/dL Hct (38.3-50.1) % MCV (80.8-98.7) fL MCH (27.0-33.3) pg MCHC (28.7-35.3) g/dL RDW (12.4-15.0) % Plt Count (117-477) x10(3)uL MPV (6.7-11.0) fL Neut % (Auto) (40.3-71.8) % Lymph % (Auto) (15.8-45.3) % [place] % (Auto) (5.5-15.2) % Eos % (Auto) (0.1-6.8) % Baso % (Auto) (0.3-3.8) % Neut # (Auto) (1.7-6.9) x10-3/uL Lymph # (Auto) (0.5-4.5) x10-3/uL [place] # (Auto) (0.0-1.2) x10-3/uL Eos # (Auto) (0.0-0.6) x10-3/uL Baso # (Auto) (0.0-0.3) x10-3/uL PT (9.0-11.1) sec INR (1.00-1.24) Sodium (135-145) mmol/L Potassium (3.5-5.3) mmol/L Chloride (100-110) mmol/L Carbon Dioxide (21-32) mmol/L BUN (7-18) mg/dL Creatinine (0.70-1.30) mg/dL Est Cr Clr Drug Dosing Estimated GFR (MDRD) (>60) BUN/Creatinine Ratio (9-20) Glucose (80-116) mg/dL Calcium (8.6-10.2) mg/dL Total Bilirubin (0.1-1.3) mg/dL AST (5-25) IU/L ALT (12-36) U/L Alkaline Phosphatase (56-112) IU/L Troponin I 7.0 6.3 (4.0-60.3) pg/mL C-Reactive Protein 2.8 H* (0.5-0.9) mg/dL NT-Pro-B Natriuret Pep 424 (<=450) pg/mL Total Protein (6.0-8.0) g/dL Albumin (3.2-4.6) g/dL Globulin g/dL Albumin/Globulin Ratio Lipase 99 (73-393) U/L Meds: Medications Discontinued Medications Generic Name Dose Route Start Last Admin Trade Name Carlos PRN Reason Stop Dose Admin Al Hydroxide/Mg Hydroxide 30 0 ml 12/04/20 09:57 12/04/20 10:13 ml/ Lidocaine HCl 15 ml PO 12/04/20 09:58 45 ml ONETIME ONE Administration Iopamidol 100 ml 12/04/20 12:14 12/04/20 13:16 Iopamidol 755 Mg/Ml 100 Ml Bottle IV 12/04/20 12:15 100 ml . DIRECTED ONE Administration Nitroglycerin 0.4 mg 12/04/20 12:27 Nitroglycerin 0.4 Mg Tab.Sl SL 12/04/20 12:28 ONETIME ONE Ondansetron HCl 4 mg 12/04/20 11:31 12/04/20 12:41 Ondansetron 4 Mg/2 Ml Sdv IVPUSH 12/04/20 11:32 4 mg ONETIME ONE Administration - Re-Assessments/Exams Free Text/Narrative Re-Assessment/Exam: 12/04/20 15:15 trop x 2 neg, BNP neg EKG x 2 neg for ischemic changes pt was ready for d/c after lower SSCP resolved competely after GI cocktail and w/u was neg, however pt then called for help and N/V twice, 20 min apart, no CP, however forehead was clammy, 2nd EKG still with no acute changes sxs concerning for possible silent angina and pt admitted to obs bed, accepted by Dr Mayers who is covering for Dr Elizondo who had another obligation this afternoon as pt has had chronic inc'd LFTs that were slightly higher, a CT of abd/pelvis with IV contrast obtained that was unremarkable, no ascites, no liver/spleen issues, gallstones present pt did have a thickened bladder wall, u/a pending CRP inc'd, however this is chronic and unchanged and of unclear clinical sig Dr Mayers said he would come in to see pt and place orders Departure - Departure Time of Disposition: 15:14 Disposition: Refer to Observation Condition: Good Clinical Impression: Substernal chest pain, GERD (gastroesophageal reflux disease), Nausea and vomiting, Diaphoresis, Elevated liver function tests Sepsis Event Note (ED) - Focused Exam Vital Signs: Vital Signs Temp Pulse Resp BP Pulse Ox 12/04/20 10:24 36.8 C 71 18 136/48 L 97 - My Orders Last 24 Hours: My Active Orders 12/04/20 09:52 Chest 1V Frontal [CR] Stat EKG 12 Lead [EK] Routine 12/04/20 09:53 EKG Documentation Completion [RC] ASDIRECTED 12/04/20 11:31 Abdomen Pelvis w Cont [CT] Stat 12/04/20 12:23 EKG Documentation Completion [RC] ASDIRECTED EKG 12 Lead [EK] Routine 12/04/20 14:58 URINALYSIS W/MICROSCOPIC [UA W/MICROSCOPIC] [URIN] Stat 12/04/20 15:13 Admission Status [Patient Status] [ADT] Routine - Assessment/Plan Last 24 Hours: My Active Orders 12/04/20 09:52 Chest 1V Frontal [CR] Stat EKG 12 Lead [EK] Routine 12/04/20 09:53 EKG Documentation Completion [RC] ASDIRECTED 12/04/20 11:31 Abdomen Pelvis w Cont [CT] Stat 12/04/20 12:23 EKG Documentation Completion [RC] ASDIRECTED EKG 12 Lead [EK] Routine 12/04/20 14:58 URINALYSIS W/MICROSCOPIC [UA W/MICROSCOPIC] [URIN] Stat 12/04/20 15:13 Admission Status [Patient Status] [ADT] Routine
[2020-12-04] MEDS ORDERED: Ondansetron 4 MG/2 ML SDV IVPUSH ONE (11:31)
[2020-12-04] MEDS ORDERED: Iopamidol 755 Mg/ML 100 ML Bottle IV ONE (12:14)
[2020-12-04] MEDS ORDERED: Nitroglycerin 0.4 MG Tab.SL SL ONE (12:27)
[2020-12-04] MEDS ORDERED: Acetaminophen 325 MG Tab PO PRN (16:22)
[2020-12-04] MEDS ORDERED: Acetaminophen 325 MG Supp RECTAL PRN (16:25)
[2020-12-04] MEDS ORDERED: Ondansetron 4 MG/2 ML SDV IVPUSH PRN (16:29)
[2020-12-04] MEDS ORDERED: Labetalol 20 MG/4 ML Syringe IVPUSH PRN (16:34)
--- NOTE | 2020-12-04 16:56 | PCM.HP.2 ---
H&P History of Present Illness - General Date of Service: 12/04/20 Admit Problem/Dx: Admission Diagnosis/Problem Admission Diagnosis/Problem Nausea Source of Information: Patient, Old Records, Provider History Limitations: Reports: Altered Mental Status - History of Present Illness Initial Comments - Free Text/Narative: Note that the patient is oriented to person and place and not fully oriented to time. Patient is a poor historian. Patient states that he came to the [facility] department due to substernal chest pain. He states that he has had difficulty with this type of pain for several years. He states that he first had an exacerbation of this pain last night and that it continued this morning and that is why he came to the emergency department. He states that the pain was associated with some diaphoresis. He rated the pain as severe, 8 out of 10. He states that he normally takes some pills at home but does not know what he takes. States that those pills usually work but did not work last night or this morning. States that the pain started after dinner last night. He ate breakfast this morning but it did not make the pain any better or worse. He has nitroglycerin on his home medication list but did not take it at home. Review of his past medical record shows that he has had gallstones in the past, he also has a history of myocardial infarction last year and a history of CABG with aortic valve replacement on warfarin at this time. He denied other symptoms including shortness of breath, fever, cough, diarrhea. Evaluation in the emergency department showed EKG normal, troponin normal x2, elevated liver enzymes but he has had chronically elevated enzymes in the past, note they are more elevated at this time, mild thrombocytosis. Review of creatinine and GFR shows that the patient has had some decrease and renal function at this time. Chest x-ray and CT of the abdomen and pelvis performed in the emergency room were grossly unremarkable. Note that chest x-ray shows cardiomegaly, chronic atelectasis of the bases, possible congestion in the left upper lobe likely secondary to chronic pleural changes being followed by serial CTs. The patient has a left upper lobe nodule that is being followed. The patient was under consideration for discharge to home from the emergency department when he reported nausea and vomited twice. Repeat troponin and EKG at that time remain negative. The patient will be admitted for observation. Initial nursing assessment showed mild fever. Nursing reported concerns of edema in the bilateral upper and lower extremities, left greater than right. Onset of Symptoms: Reports: Sudden Indigestion Pain Score (Numeric/FACES): 8 - Related Data Allergies/Adverse Reactions: Allergies Allergy/AdvReac Type Severity Reaction Status Date / Time Sulfa (Sulfonamide Allergy Rash Verified 12/04/20 10:22 Antibiotics) Home Medications: Home Meds Losartan [Cozaar] 50 mg PO DAILY 12/01/17 [History] Simvastatin [Zocor] 40 mg PO BEDTIME 12/01/17 [History] Warfarin [Coumadin] 5 mg PO SUTUWETHFRSA 12/01/17 [History] metFORMIN [Glucophage] 500 mg PO BIDMEALS 12/01/17 [History] Omeprazole 20 mg PO DAILY 07/28/19 [History] Docusate Sodium 250 mg PO DAILY 09/23/19 [History] Warfarin [Coumadin] 2.5 mg PO MO 09/23/19 [History] Acetaminophen [Tylenol] 650 mg PO Q4H PRN tablet 09/26/19 [Rx] Aspirin [Halfprin] 81 mg PO DAILY tab.ec 09/26/19 [Rx] Metoprolol Tartrate [Lopressor] 50 mg PO BID tablet 09/26/19 [Rx] Past Medical History HEENT History: Reports: Cataract, Hard of Hearing, Impaired Vision, Other (See Below) Other HEENT History: MEIBOMIAN GLAND DYSFUNCTION, 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 TEAR FILM INSUFFICIENCY. HYPEROPIA. REGULAR ASTIGMATISM OF BOTH EYES. PRESBYOPIA. DENTAL CARRIES Cardiovascular History: Reports: CAD, Heart Valve Replacement, High Cholesterol, Hypertension Other Cardiovascular History: AORTIC STENOSIS Respiratory History: Reports: Other (See Below) Other Respiratory History: former smoker, has inhaler as needed. Gastrointestinal History: Reports: Cholelithiasis, GERD Musculoskeletal History: Reports: Arthritis Neurological History: Reports: None Psychiatric History: Reports: None Endocrine/Metabolic History: Reports: Diabetes, Type II Hematologic History: Reports: Anticoagulation Therapy Immunologic History: Reports: None Oncologic (Cancer) History: Reports: None Dermatologic History: Reports: None - Infectious Disease History Infectious Disease History: Reports: Chicken Pox, Mumps - Past Surgical History HEENT Surgical History: Reports: Cataract Surgery Cardiovascular Surgical History: Reports: Coronary Artery Bypass, Valve Replacement Male Surgical History: Reports: Other (See Below) Other Male Surgeries/Procedures: HERNIA WITH OBSTRUCTION. GALLSTONES. HERNIA REPAIR Social & Family History - Family History Family Medical History: No Pertinent Family History - Tobacco Use Tobacco Use Status *Q: Former Tobacco User Used Tobacco, but Quit: Yes Month/Year Tobacco Last Used: jul - Caffeine Use Caffeine Use: Reports: None Caffeine Use Comment: 4 cups coffee per day and 2 cans pop per day. - Alcohol Use Days Per Week of Alcohol Use: 7 Number of Drinks Per Day: 1 Total Drinks Per Week: 7 - Recreational Drug Use Recreational Drug Use: No H&P Review of Systems - Review of Systems: Review Of Systems: See Below General: Reports: Diaphoresis HEENT: Reports: No Symptoms Pulmonary: Reports: No Symptoms Cardiovascular: Reports: Other (Atypical chest pain, substernal) Gastrointestinal: Reports: Nausea, Vomiting, Other (GERD) Genitourinary: Reports: No Symptoms Musculoskeletal: Reports: No Symptoms Skin: Reports: No Symptoms Psychiatric: Reports: No Symptoms Neurological: Reports: No Symptoms Hematologic/Lymphatic: Reports: No Symptoms Immunologic: Reports: No Symptoms Exam - Exam Exam: See Below - Vital Signs Vital Signs: Last Vital Signs Temp 36.8 C 12/04/20 10:24 Pulse 71 12/04/20 10:24 Resp 18 12/04/20 10:24 BP 136/48 L 12/04/20 10:24 Pulse Ox 97 12/04/20 10:24 Weight: 97.976 kg - Exam Quality Assessment: Supplemental Oxygen, DVT Prophylaxis, Skin Breakdown General: Alert, Cooperative, Other (Oriented to person and place) HEENT: EOMI Lungs: Decreased Breath Sounds, Crackles, Wheezing Cardiovascular: Regular Rate, Regular Rhythm, Systolic Murmur, Other (Heart sounds are distant and difficult to auscultate. Systolic murmur heard best at the right upper sternal border) GI/Abdominal Exam: Normal Bowel Sounds, Non-Tender Extremities: Pedal Edema, Other (Bilateral pitting edema in the upper and lower extremities, left slightly greater than right both upper and lower extremities) Peripheral Pulses: 2+: Radial (L), Radial (R), Dorsalis Pedis (L), Dorsalis Pedis (R) Skin: Warm, Dry Neuro Extensive - Mental Status: Alert, Normal Mood/Affect Neuro Extensive - Motor, Sensory, Reflexes: CN II-XII Intact, Other (The patient was able to sit up to the side of the bed and stand without assistance. He seems to be slightly disoriented, he was not able to concentrate long enough to test extraocular muscles without repeated instruction. However, this may be due to him being hard of hearing). No: Abnormal Finger to Nose Psychiatric: Alert - Patient Data Lab Results Last 24 hrs: Laboratory Results - last 24 hr 12/04/20 12/04/20 12/04/20 Range/Units 10:02 10:02 10:02 WBC 8.7 (3.2-10.1) x10-3/uL RBC 5.26 (3.90-5.90) x10(6)uL Hgb 15.7 (12.9-17.7) g/dL Hct 47.5 (38.3-50.1) % MCV 90.4 (80.8-98.7) fL MCH 29.9 (27.0-33.3) pg MCHC 33.1 (28.7-35.3) g/dL RDW 13.2 (12.4-15.0) % Plt Count 108 L (117-477) x10(3)uL MPV 9.6 (6.7-11.0) fL Neut % (Auto) 80.4 H (40.3-71.8) % Lymph % (Auto) 8.3 L (15.8-45.3) % [place] % (Auto) 10.6 (5.5-15.2) % Eos % (Auto) 0.4 (0.1-6.8) % Baso % (Auto) 0.3 (0.3-3.8) % Neut # (Auto) 7.0 H (1.7-6.9) x10-3/uL Lymph # (Auto) 0.7 (0.5-4.5) x10-3/uL [place] # (Auto) 0.9 (0.0-1.2) x10-3/uL Eos # (Auto) 0.0 (0.0-0.6) x10-3/uL Baso # (Auto) 0.0 (0.0-0.3) x10-3/uL PT 24.0 H (9.0-11.1) sec INR 2.35 H (1.00-1.24) Sodium 136 (135-145) mmol/L Potassium 4.3 (3.5-5.3) mmol/L Chloride 100 (100-110) mmol/L Carbon Dioxide 29 (21-32) mmol/L BUN 17 D (7-18) mg/dL Creatinine 1.3 (0.70-1.30) mg/dL Est Cr Clr Drug Dosing TNP Estimated GFR (MDRD) 54 L (>60) BUN/Creatinine Ratio 13.1 (9-20) Glucose 166 H (80-116) mg/dL Calcium 8.0 L (8.6-10.2) mg/dL Total Bilirubin 2.0 H (0.1-1.3) mg/dL AST 203 H* D (5-25) IU/L ALT 155 H* D (12-36) U/L Alkaline Phosphatase 125 H (56-112) IU/L Troponin I (4.0-60.3) pg/mL C-Reactive Protein (0.5-0.9) mg/dL NT-Pro-B Natriuret Pep (<=450) pg/mL Total Protein 7.4 (6.0-8.0) g/dL Albumin 3.8 (3.2-4.6) g/dL Globulin 3.6 g/dL Albumin/Globulin Ratio 1.1 Lipase (73-393) U/L Urine Color (YELLOW) Urine Appearance (CLEAR) Urine pH (5.0-6.5) Ur Specific [place] (1.010-1.025) Urine Protein (NEGATIVE) mg/dL Urine Glucose (UA) (NORMAL) mg/dL Urine Ketones (NEGATIVE) mg/dL Urine Occult Blood (NEGATIVE) Urine Nitrite (NEGATIVE) Urine Bilirubin (NEGATIVE) Urine Urobilinogen (NEGATIVE) mg/dL Ur Leukocyte Esterase (NEGATIVE) Urine RBC (0-5) Urine WBC (0-5) Ur Squamous Epith Cells (NS,R,O) Urine Bacteria (NS) 12/04/20 12/04/20 12/04/20 Range/Units 10:02 10:02 13:02 WBC (3.2-10.1) x10-3/uL RBC (3.90-5.90) x10(6)uL Hgb (12.9-17.7) g/dL Hct (38.3-50.1) % MCV (80.8-98.7) fL MCH (27.0-33.3) pg MCHC (28.7-35.3) g/dL RDW (12.4-15.0) % Plt Count (117-477) x10(3)uL MPV (6.7-11.0) fL Neut % (Auto) (40.3-71.8) % Lymph % (Auto) (15.8-45.3) % [place] % (Auto) (5.5-15.2) % Eos % (Auto) (0.1-6.8) % Baso % (Auto) (0.3-3.8) % Neut # (Auto) (1.7-6.9) x10-3/uL Lymph # (Auto) (0.5-4.5) x10-3/uL [place] # (Auto) (0.0-1.2) x10-3/uL Eos # (Auto) (0.0-0.6) x10-3/uL Baso # (Auto) (0.0-0.3) x10-3/uL PT (9.0-11.1) sec INR (1.00-1.24) Sodium (135-145) mmol/L Potassium (3.5-5.3) mmol/L Chloride (100-110) mmol/L Carbon Dioxide (21-32) mmol/L BUN (7-18) mg/dL Creatinine (0.70-1.30) mg/dL Est Cr Clr Drug Dosing Estimated GFR (MDRD) (>60) BUN/Creatinine Ratio (9-20) Glucose (80-116) mg/dL Calcium (8.6-10.2) mg/dL Total Bilirubin (0.1-1.3) mg/dL AST (5-25) IU/L ALT (12-36) U/L Alkaline Phosphatase (56-112) IU/L Troponin I 7.0 (4.0-60.3) pg/mL C-Reactive Protein 2.8 H* (0.5-0.9) mg/dL NT-Pro-B Natriuret Pep 424 (<=450) pg/mL Total Protein (6.0-8.0) g/dL Albumin (3.2-4.6) g/dL Globulin g/dL Albumin/Globulin Ratio Lipase 99 (73-393) U/L Urine Color Yellow (YELLOW) Urine Appearance Clear (CLEAR) Urine pH 7.0 H (5.0-6.5) Ur Specific [place] 1.005 L (1.010-1.025) Urine Protein Trace (NEGATIVE) mg/dL Urine Glucose (UA) Normal (NORMAL) mg/dL Urine Ketones Negative (NEGATIVE) mg/dL Urine Occult Blood Negative (NEGATIVE) Urine Nitrite Negative (NEGATIVE) Urine Bilirubin Small H (NEGATIVE) Urine Urobilinogen 4 H (NEGATIVE) mg/dL Ur Leukocyte Esterase Negative (NEGATIVE) Urine RBC 0-5 (0-5) Urine WBC 0-5 (0-5) Ur Squamous Epith Cells Occasional (NS,R,O) Urine Bacteria Few H (NS) 12/04/20 Range/Units 13:20 WBC (3.2-10.1) x10-3/uL RBC (3.90-5.90) x10(6)uL Hgb (12.9-17.7) g/dL Hct (38.3-50.1) % MCV (80.8-98.7) fL MCH (27.0-33.3) pg MCHC (28.7-35.3) g/dL RDW (12.4-15.0) % Plt Count (117-477) x10(3)uL MPV (6.7-11.0) fL Neut % (Auto) (40.3-71.8) % Lymph % (Auto) (15.8-45.3) % [place] % (Auto) (5.5-15.2) % Eos % (Auto) (0.1-6.8) % Baso % (Auto) (0.3-3.8) % Neut # (Auto) (1.7-6.9) x10-3/uL Lymph # (Auto) (0.5-4.5) x10-3/uL [place] # (Auto) (0.0-1.2) x10-3/uL Eos # (Auto) (0.0-0.6) x10-3/uL Baso # (Auto) (0.0-0.3) x10-3/uL PT (9.0-11.1) sec INR (1.00-1.24) Sodium (135-145) mmol/L Potassium (3.5-5.3) mmol/L Chloride (100-110) mmol/L Carbon Dioxide (21-32) mmol/L BUN (7-18) mg/dL Creatinine (0.70-1.30) mg/dL Est Cr Clr Drug Dosing Estimated GFR (MDRD) (>60) BUN/Creatinine Ratio (9-20) Glucose (80-116) mg/dL Calcium (8.6-10.2) mg/dL Total Bilirubin (0.1-1.3) mg/dL AST (5-25) IU/L ALT (12-36) U/L Alkaline Phosphatase (56-112) IU/L Troponin I 6.3 (4.0-60.3) pg/mL C-Reactive Protein (0.5-0.9) mg/dL NT-Pro-B Natriuret Pep (<=450) pg/mL Total Protein (6.0-8.0) g/dL Albumin (3.2-4.6) g/dL Globulin g/dL Albumin/Globulin Ratio Lipase (73-393) U/L Urine Color (YELLOW) Urine Appearance (CLEAR) Urine pH (5.0-6.5) Ur Specific [place] (1.010-1.025) Urine Protein (NEGATIVE) mg/dL Urine Glucose (UA) (NORMAL) mg/dL Urine Ketones (NEGATIVE) mg/dL Urine Occult Blood (NEGATIVE) Urine Nitrite (NEGATIVE) Urine Bilirubin (NEGATIVE) Urine Urobilinogen (NEGATIVE) mg/dL Ur Leukocyte Esterase (NEGATIVE) Urine RBC (0-5) Urine WBC (0-5) Ur Squamous Epith Cells (NS,R,O) Urine Bacteria (NS) Result Diagrams: 12/04/20 10:02 12/04/20 10:02 Sepsis Event Note - Evaluation Sepsis Screening Result: No Definite Risk - Focused Exam Vital Signs: Vital Signs Temp Pulse Resp BP Pulse Ox 12/04/20 10:24 36.8 C 71 18 136/48 L 97 - Problem List (1) Palliative care encounter SNOMED Code(s): 291427732, 078437679 ICD Code: Z51.5 - ENCOUNTER FOR PALLIATIVE CARE Status: Acute Current Visit: Yes (2) Diaphoresis SNOMED Code(s): 37774822 ICD Code: R61 - GENERALIZED HYPERHIDROSIS Status: Acute Current Visit: Yes (3) Elevated liver function tests SNOMED Code(s): 905980710 ICD Code: R79.89 - OTHER SPECIFIED ABNORMAL FINDINGS OF BLOOD CHEMISTRY Status: Acute Current Visit: Yes (4) GERD (gastroesophageal reflux disease) SNOMED Code(s): 266391191 ICD Code: K21.9 - GASTRO-ESOPHAGEAL REFLUX DISEASE WITHOUT ESOPHAGITIS Status: Acute Current Visit: Yes (5) Nausea and vomiting SNOMED Code(s): 30610788 ICD Code: R11.2 - NAUSEA WITH VOMITING, UNSPECIFIED Status: Acute Current Visit: Yes (6) Substernal chest pain SNOMED Code(s): 2445703 ICD Code: R07.2 - PRECORDIAL PAIN Status: Acute Current Visit: Yes (7) CAP (community acquired pneumonia) SNOMED Code(s): 824852679 ICD Code: J18.9 - PNEUMONIA, UNSPECIFIED ORGANISM Status: Acute Current Visit: No Qualifiers: Laterality: left (8) CAD (coronary artery disease) SNOMED Code(s): 41405912 ICD Code: I25.10 - ATHSCL HEART DISEASE OF [place] CORONARY ARTERY W/O ANG PCTRS Status: Chronic Current Visit: No Qualifiers: Coronary Disease-Associated Artery/Lesion type: [place] artery Associated angina: without angina (9) Diabetes type 2, controlled SNOMED Code(s): 25203995, 076373411 ICD Code: E11.9 - TYPE 2 DIABETES MELLITUS WITHOUT COMPLICATIONS Status: Chronic Current Visit: No (10) HTN (hypertension) SNOMED Code(s): 49406130 ICD Code: I10 - ESSENTIAL (PRIMARY) HYPERTENSION Status: Chronic Current Visit: No Qualifiers: Hypertension type: essential hypertension Qualified Code(s): I10 - Essential (primary) hypertension (11) Long-term (current) use of anticoagulants, INR goal 2.5-3.5 SNOMED Code(s): 188795383, 001046065 ICD Code: Z79.01 - [employer] (CURRENT) USE OF ANTICOAGULANTS Status: Chronic Current Visit: No (12) S/P AVR Status: Chronic Current Visit: No (13) Edema SNOMED Code(s): 230661170, 618946272 ICD Code: R60.9 - EDEMA, UNSPECIFIED Status: Acute Current Visit: Yes Problem List Initiated/Reviewed/Updated: Yes Orders Last 24hrs: Active Orders 24 hr Category Date Time Status Admission Status [Patient Status] [ADT] Routine ADT 12/04/20 15:13 Active EKG Documentation Completion [RC] ASDIRECTED Care 12/04/20 09:53 Active EKG Documentation Completion [RC] ASDIRECTED Care 12/04/20 12:23 Active Telemetry Monitoring [Cardiac Monitoring] [RC] .As Care 12/04/20 16:21 Ordered Directed Vital Signs [RC] Q4H Care 12/04/20 16:20 Ordered Consistent Carbohydrate Diet [DIET] Diet 12/04/20 Dinner Ordered Abdomen Pelvis w Cont [CT] Stat Exams 12/04/20 11:31 Taken Chest 1V Frontal [CR] Stat Exams 12/04/20 09:52 Taken AMMONIA, PLASMA Routine Lab 12/04/20 16:44 Ordered CBC WITH AUTO DIFF [HEME] Routine Lab 12/05/20 Ordered COMPREHENSIVE METABOLIC PN,CMP [CHEM] Routine Lab 12/05/20 Ordered CORONAVIRUS COVID-19 SHADE [MOLEC] Stat Lab 12/04/20 16:09 Received Acetaminophen [TylenoL] Med 12/04/20 16:22 Ordered 325 mg PO Q4H PRN Acetaminophen [Tylenol] Med 12/04/20 16:25 Ordered 325 mg RECTAL Q4H PRN Aspirin [Halfprin] Med 12/05/20 09:00 Ordered 81 mg PO DAILY Docusate Sodium [Docusate Sodium] Med 12/05/20 09:00 Ordered 250 mg PO DAILY Labetalol [Normodyne] Med 12/04/20 16:34 Ordered 10 mg IVPUSH Q1H PRN Losartan [Cozaar] Med 12/05/20 09:00 Ordered 50 mg PO DAILY Metoprolol Tartrate [Lopressor] Med 12/04/20 21:00 Ordered 50 mg PO BID Omeprazole [Omeprazole] Med 12/05/20 09:00 Ordered 20 mg PO DAILY Ondansetron [Zofran] Med 12/04/20 16:29 Ordered 4 mg IVPUSH Q4H PRN Simvastatin [Zocor] Med 12/04/20 21:00 Ordered 40 mg PO BEDTIME Warfarin [Coumadin] Med 12/06/20 16:29 Ordered 2.5 mg PO MO Warfarin [Coumadin] Med 12/04/20 16:30 Ordered 5 mg PO SUTUWETHFRSA RT Supplemental Oxygen Titration [RESPCARE] Routine Oth 12/04/20 16:06 Ordered Code Status [Resuscitation Status] Routine Resus Stat 12/04/20 16:06 Ordered EKG 12 Lead [EK] Routine Ther 12/04/20 09:52 Ordered EKG 12 Lead [EK] Routine Ther 12/04/20 12:23 Ordered Medication Orders Acetaminophen (Acetaminophen 325 Mg Tab) 325 mg PO Q4H PRN PRN Reason: Fever Acetaminophen (Acetaminophen 325 Mg Supp) 325 mg RECTAL Q4H PRN PRN Reason: Fever Labetalol HCl (Labetalol 20 Mg/4 Ml Syringe) 10 mg IVPUSH Q1H PRN; Protocol PRN Reason: Hypertension Non-Formulary Medication (Aspirin [Halfprin]) 81 mg PO DAILY KIM Non-Formulary Medication (Docusate Sodium [Docusate Sodium]) 250 mg PO DAILY KIM Non-Formulary Medication (Losartan [Cozaar]) 50 mg PO DAILY KIM Non-Formulary Medication (Metoprolol Tartrate [Lopressor]) 50 mg PO BID KIM Non-Formulary Medication (Omeprazole [Omeprazole]) 20 mg PO DAILY KIM Non-Formulary Medication (Simvastatin [Zocor]) 40 mg PO BEDTIME KIM Non-Formulary Medication (Warfarin [Coumadin]) 2.5 mg PO MO KIM Non-Formulary Medication (Warfarin [Coumadin]) 5 mg PO SUTUWETHFRSA KIM Ondansetron HCl (Ondansetron 4 Mg/2 Ml Sdv) 4 mg IVPUSH Q4H PRN PRN Reason: Nausea/Vomiting Assessment/Plan Comment:: 1. Admit to observation 2. Note that the patient has chronically elevated liver enzymes but that his enzymes are further elevated at today's admission. Serum ammonia has been ordered secondary to patient's lack of ability to maintain concentration and orientation to person and place only. 3. Creatinine 1.3 and GFR slightly reduced from previous labs. Note that these previous labs were quite some time ago and that the patient is at the upper limits of normal for acute kidney injury. Continue to monitor liver and renal functions. 4. Bilateral upper extremity and lower extremity edema. Concern secondary to renal and liver function. 5. BNP was within normal limits but the patient has a history of CAD, [place] 1 year ago, and cardiomegaly on chest x-ray. Consider diuresis 6. Patient has chronic changes on chest x-ray but given substernal chest pain, altered mental status, decreased liver and renal function, and fever patient will be treated for community-acquired pneumonia at this time. Ceftriaxone 1 g daily 7. DVT prophylaxis: Continue patient's home warfarin 8. GI prophylaxis: Continue patient's home PPI, omeprazole 9. Disposition: Pending improvement, likely tomorrow
[2020-12-04] MEDS ORDERED: cefTRIAXone 1 GM in Sodium Chloride 0.9% 50 ML IV SCH (18:00)
[2020-12-04] MEDS ORDERED: Warfarin 5 MG Tab PO SCH (18:00)
[2020-12-04] MEDS ORDERED: Simvastatin 40 MG Tab PO SCH (21:00)
[2020-12-04] MEDS: Metoprolol Tartrate 50 MG Tab PO SCH (21:16)
[2020-12-05] MEDS ORDERED: Pantoprazole 40 MG Tab.CR PO SCH (07:30)
[2020-12-05] MEDS: Metoprolol Tartrate 50 MG Tab PO SCH (08:00)
[2020-12-05 08:01] VITALS: BP 116/54; PULSE 75
[2020-12-05] MEDS ORDERED: Docusate Sodium 250 MG Cap PO SCH (09:00)
[2020-12-05] MEDS ORDERED: Losartan 50 MG Tab PO SCH (09:00)
[2020-12-05] MEDS ORDERED: Aspirin 81 MG Tab.EC PO SCH (09:00)
--- NOTE | 2020-12-05 09:55 | PCM.PN ---
- General Info Date of Service: 12/05/20 Admission Dx/Problem (Free Text): The patient feels good. He denies fevers, chills, chest pain, heartburn, abdominal pain, diarrhea, blood in his stool or constipation. He had a meal this morning and he went well. - Patient Data Vitals - Most Recent: Last Vital Signs Temp 98.1 F 12/05/20 05:00 Pulse 75 12/05/20 08:00 Resp 18 12/05/20 05:00 BP 116/54 L 12/05/20 08:00 Pulse Ox 99 12/05/20 05:00 Weight - Most Recent: 213 lb Lab Results Last 24 Hours: Laboratory Results - last 24 hr 12/04/20 12/04/20 12/04/20 Range/Units 10:02 10:02 10:02 WBC 8.7 (3.2-10.1) x10-3/uL RBC 5.26 (3.90-5.90) x10(6)uL Hgb 15.7 (12.9-17.7) g/dL Hct 47.5 (38.3-50.1) % MCV 90.4 (80.8-98.7) fL MCH 29.9 (27.0-33.3) pg MCHC 33.1 (28.7-35.3) g/dL RDW 13.2 (12.4-15.0) % Plt Count 108 L (117-477) x10(3)uL MPV 9.6 (6.7-11.0) fL Neut % (Auto) 80.4 H (40.3-71.8) % Lymph % (Auto) 8.3 L (15.8-45.3) % Kay % (Auto) 10.6 (5.5-15.2) % Eos % (Auto) 0.4 (0.1-6.8) % Baso % (Auto) 0.3 (0.3-3.8) % Neut # (Auto) 7.0 H (1.7-6.9) x10-3/uL Lymph # (Auto) 0.7 (0.5-4.5) x10-3/uL Kay # (Auto) 0.9 (0.0-1.2) x10-3/uL Eos # (Auto) 0.0 (0.0-0.6) x10-3/uL Baso # (Auto) 0.0 (0.0-0.3) x10-3/uL Add Manual Diff Neutrophils % (Manual) (46-82) % Band Neutrophils % (0-6) % Lymphocytes % (Manual) (13-37) % Monocytes % (Manual) (4-12) % PT 24.0 H (9.0-11.1) sec INR 2.35 H (1.00-1.24) Sodium 136 (135-145) mmol/L Potassium 4.3 (3.5-5.3) mmol/L Chloride 100 (100-110) mmol/L Carbon Dioxide 29 (21-32) mmol/L BUN 17 D (7-18) mg/dL Creatinine 1.3 (0.70-1.30) mg/dL Est Cr Clr Drug Dosing TNP Estimated GFR (MDRD) 54 L (>60) BUN/Creatinine Ratio 13.1 (9-20) Glucose 166 H (80-116) mg/dL Calcium 8.0 L (8.6-10.2) mg/dL Total Bilirubin 2.0 H (0.1-1.3) mg/dL AST 203 H* D (5-25) IU/L ALT 155 H* D (12-36) U/L Alkaline Phosphatase 125 H (56-112) IU/L Ammonia Troponin I (4.0-60.3) pg/mL C-Reactive Protein (0.5-0.9) mg/dL NT-Pro-B Natriuret Pep (<=450) pg/mL Total Protein 7.4 (6.0-8.0) g/dL Albumin 3.8 (3.2-4.6) g/dL Globulin 3.6 g/dL Albumin/Globulin Ratio 1.1 Lipase (73-393) U/L Urine Color (YELLOW) Urine Appearance (CLEAR) Urine pH (5.0-6.5) Ur Specific [place] (1.010-1.025) Urine Protein (NEGATIVE) mg/dL Urine Glucose (UA) (NORMAL) mg/dL Urine Ketones (NEGATIVE) mg/dL Urine Occult Blood (NEGATIVE) Urine Nitrite (NEGATIVE) Urine Bilirubin (NEGATIVE) Urine Urobilinogen (NEGATIVE) mg/dL Ur Leukocyte Esterase (NEGATIVE) Urine RBC (0-5) Urine WBC (0-5) Ur Squamous Epith Cells (NS,R,O) Urine Bacteria (NS) SARS-CoV-2 RNA (SHADE) (NEGATIVE) 12/04/20 12/04/20 12/04/20 Range/Units 10:02 10:02 13:02 WBC (3.2-10.1) x10-3/uL RBC (3.90-5.90) x10(6)uL Hgb (12.9-17.7) g/dL Hct (38.3-50.1) % MCV (80.8-98.7) fL MCH (27.0-33.3) pg MCHC (28.7-35.3) g/dL RDW (12.4-15.0) % Plt Count (117-477) x10(3)uL MPV (6.7-11.0) fL Neut % (Auto) (40.3-71.8) % Lymph % (Auto) (15.8-45.3) % Kay % (Auto) (5.5-15.2) % Eos % (Auto) (0.1-6.8) % Baso % (Auto) (0.3-3.8) % Neut # (Auto) (1.7-6.9) x10-3/uL Lymph # (Auto) (0.5-4.5) x10-3/uL Kay # (Auto) (0.0-1.2) x10-3/uL Eos # (Auto) (0.0-0.6) x10-3/uL Baso # (Auto) (0.0-0.3) x10-3/uL Add Manual Diff Neutrophils % (Manual) (46-82) % Band Neutrophils % (0-6) % Lymphocytes % (Manual) (13-37) % Monocytes % (Manual) (4-12) % PT (9.0-11.1) sec INR (1.00-1.24) Sodium (135-145) mmol/L Potassium (3.5-5.3) mmol/L Chloride (100-110) mmol/L Carbon Dioxide (21-32) mmol/L BUN (7-18) mg/dL Creatinine (0.70-1.30) mg/dL Est Cr Clr Drug Dosing Estimated GFR (MDRD) (>60) BUN/Creatinine Ratio (9-20) Glucose (80-116) mg/dL Calcium (8.6-10.2) mg/dL Total Bilirubin (0.1-1.3) mg/dL AST (5-25) IU/L ALT (12-36) U/L Alkaline Phosphatase (56-112) IU/L Ammonia Troponin I 7.0 (4.0-60.3) pg/mL C-Reactive Protein 2.8 H* (0.5-0.9) mg/dL NT-Pro-B Natriuret Pep 424 (<=450) pg/mL Total Protein (6.0-8.0) g/dL Albumin (3.2-4.6) g/dL Globulin g/dL Albumin/Globulin Ratio Lipase 99 (73-393) U/L Urine Color Yellow (YELLOW) Urine Appearance Clear (CLEAR) Urine pH 7.0 H (5.0-6.5) Ur Specific [place] 1.005 L (1.010-1.025) Urine Protein Trace (NEGATIVE) mg/dL Urine Glucose (UA) Normal (NORMAL) mg/dL Urine Ketones Negative (NEGATIVE) mg/dL Urine Occult Blood Negative (NEGATIVE) Urine Nitrite Negative (NEGATIVE) Urine Bilirubin Small H (NEGATIVE) Urine Urobilinogen 4 H (NEGATIVE) mg/dL Ur Leukocyte Esterase Negative (NEGATIVE) Urine RBC 0-5 (0-5) Urine WBC 0-5 (0-5) Ur Squamous Epith Cells Occasional (NS,R,O) Urine Bacteria Few H (NS) SARS-CoV-2 RNA (SHADE) (NEGATIVE) 12/04/20 12/04/20 12/04/20 Range/Units 13:20 16:09 17:00 WBC (3.2-10.1) x10-3/uL RBC (3.90-5.90) x10(6)uL Hgb (12.9-17.7) g/dL Hct (38.3-50.1) % MCV (80.8-98.7) fL MCH (27.0-33.3) pg MCHC (28.7-35.3) g/dL RDW (12.4-15.0) % Plt Count (117-477) x10(3)uL MPV (6.7-11.0) fL Neut % (Auto) (40.3-71.8) % Lymph % (Auto) (15.8-45.3) % Kay % (Auto) (5.5-15.2) % Eos % (Auto) (0.1-6.8) % Baso % (Auto) (0.3-3.8) % Neut # (Auto) (1.7-6.9) x10-3/uL Lymph # (Auto) (0.5-4.5) x10-3/uL Kay # (Auto) (0.0-1.2) x10-3/uL Eos # (Auto) (0.0-0.6) x10-3/uL Baso # (Auto) (0.0-0.3) x10-3/uL Add Manual Diff Neutrophils % (Manual) (46-82) % Band Neutrophils % (0-6) % Lymphocytes % (Manual) (13-37) % Monocytes % (Manual) (4-12) % PT (9.0-11.1) sec INR (1.00-1.24) Sodium (135-145) mmol/L Potassium (3.5-5.3) mmol/L Chloride (100-110) mmol/L Carbon Dioxide (21-32) mmol/L BUN (7-18) mg/dL Creatinine (0.70-1.30) mg/dL Est Cr Clr Drug Dosing Estimated GFR (MDRD) (>60) BUN/Creatinine Ratio (9-20) Glucose (80-116) mg/dL Calcium (8.6-10.2) mg/dL Total Bilirubin (0.1-1.3) mg/dL AST (5-25) IU/L ALT (12-36) U/L Alkaline Phosphatase (56-112) IU/L Ammonia 9 Troponin I 6.3 (4.0-60.3) pg/mL C-Reactive Protein (0.5-0.9) mg/dL NT-Pro-B Natriuret Pep (<=450) pg/mL Total Protein (6.0-8.0) g/dL Albumin (3.2-4.6) g/dL Globulin g/dL Albumin/Globulin Ratio Lipase (73-393) U/L Urine Color (YELLOW) Urine Appearance (CLEAR) Urine pH (5.0-6.5) Ur Specific [place] (1.010-1.025) Urine Protein (NEGATIVE) mg/dL Urine Glucose (UA) (NORMAL) mg/dL Urine Ketones (NEGATIVE) mg/dL Urine Occult Blood (NEGATIVE) Urine Nitrite (NEGATIVE) Urine Bilirubin (NEGATIVE) Urine Urobilinogen (NEGATIVE) mg/dL Ur Leukocyte Esterase (NEGATIVE) Urine RBC (0-5) Urine WBC (0-5) Ur Squamous Epith Cells (NS,R,O) Urine Bacteria (NS) SARS-CoV-2 RNA (SHADE) Negative (NEGATIVE) 12/05/20 12/05/20 Range/Units 06:25 06:25 WBC 13.0 H (3.2-10.1) x10-3/uL RBC 4.90 (3.90-5.90) x10(6)uL Hgb 14.5 (12.9-17.7) g/dL Hct 44.5 (38.3-50.1) % MCV 90.8 (80.8-98.7) fL MCH 29.5 (27.0-33.3) pg MCHC 32.5 (28.7-35.3) g/dL RDW 13.6 (12.4-15.0) % Plt Count 95 L (117-477) x10(3)uL MPV 9.7 (6.7-11.0) fL Neut % (Auto) (40.3-71.8) % Lymph % (Auto) (15.8-45.3) % Kay % (Auto) (5.5-15.2) % Eos % (Auto) (0.1-6.8) % Baso % (Auto) (0.3-3.8) % Neut # (Auto) (1.7-6.9) x10-3/uL Lymph # (Auto) (0.5-4.5) x10-3/uL Kay # (Auto) (0.0-1.2) x10-3/uL Eos # (Auto) (0.0-0.6) x10-3/uL Baso # (Auto) (0.0-0.3) x10-3/uL Add Manual Diff Yes Neutrophils % (Manual) 87 H (46-82) % Band Neutrophils % 4 (0-6) % Lymphocytes % (Manual) 4 L (13-37) % Monocytes % (Manual) 5 (4-12) % PT (9.0-11.1) sec INR (1.00-1.24) Sodium 137 (135-145) mmol/L Potassium 3.9 (3.5-5.3) mmol/L Chloride 100 (100-110) mmol/L Carbon Dioxide 30 (21-32) mmol/L BUN 22 H (7-18) mg/dL Creatinine 1.5 H (0.70-1.30) mg/dL Est Cr Clr Drug Dosing 41.24 Estimated GFR (MDRD) 45 L (>60) BUN/Creatinine Ratio 14.7 (9-20) Glucose 135 H (80-116) mg/dL Calcium 7.9 L (8.6-10.2) mg/dL Total Bilirubin 3.3 H (0.1-1.3) mg/dL AST 153 H* D (5-25) IU/L ALT 208 H* D (12-36) U/L Alkaline Phosphatase 124 H (56-112) IU/L Ammonia Troponin I (4.0-60.3) pg/mL C-Reactive Protein (0.5-0.9) mg/dL NT-Pro-B Natriuret Pep (<=450) pg/mL Total Protein 6.6 (6.0-8.0) g/dL Albumin 3.2 (3.2-4.6) g/dL Globulin 3.4 g/dL Albumin/Globulin Ratio 0.9 Lipase (73-393) U/L Urine Color (YELLOW) Urine Appearance (CLEAR) Urine pH (5.0-6.5) Ur Specific [place] (1.010-1.025) Urine Protein (NEGATIVE) mg/dL Urine Glucose (UA) (NORMAL) mg/dL Urine Ketones (NEGATIVE) mg/dL Urine Occult Blood (NEGATIVE) Urine Nitrite (NEGATIVE) Urine Bilirubin (NEGATIVE) Urine Urobilinogen (NEGATIVE) mg/dL Ur Leukocyte Esterase (NEGATIVE) Urine RBC (0-5) Urine WBC (0-5) Ur Squamous Epith Cells (NS,R,O) Urine Bacteria (NS) SARS-CoV-2 RNA (SHADE) (NEGATIVE) Med Orders - Current: Current Medications Acetaminophen (Acetaminophen 325 Mg Tab) 325 mg PO Q4H PRN PRN Reason: Fever Acetaminophen (Acetaminophen 325 Mg Supp) 325 mg RECTAL Q4H PRN PRN Reason: Fever Aspirin (Aspirin 81 Mg Tab.Ec) 81 mg PO DAILY [facility] Last Admin: 12/05/20 08:00 Dose: 81 mg Documented by: Docusate Sodium (Docusate Sodium 250 Mg Cap) 250 mg PO DAILY [facility] Ceftriaxone Sodium 1 gm/ (Sodium Chloride) 50 mls @ 200 mls/hr IV Q24H [facility] Last Admin: 12/04/20 18:42 Dose: 200 mls/hr Documented by: Labetalol HCl (Labetalol 20 Mg/4 Ml Syringe) 10 mg IVPUSH Q1H PRN; Protocol PRN Reason: Hypertension Losartan Potassium (Losartan 50 Mg Tab) 50 mg PO DAILY [facility] Last Admin: 12/05/20 08:00 Dose: 50 mg Documented by: Metoprolol Tartrate (Metoprolol Tartrate 50 Mg Tab) 50 mg PO BID [facility] Last Admin: 12/05/20 08:00 Dose: 50 mg Documented by: Ondansetron HCl (Ondansetron 4 Mg/2 Ml Sdv) 4 mg IVPUSH Q4H PRN PRN Reason: Nausea/Vomiting Pantoprazole Sodium (Pantoprazole 40 Mg Tab.Cr) 40 mg PO ACBREAKFAST [facility] Last Admin: 12/05/20 06:47 Dose: 40 mg Documented by: Simvastatin (Simvastatin 40 Mg Tab) 40 mg PO BEDTIME [facility] Last Admin: 12/04/20 21:16 Dose: 40 mg Documented by: Warfarin Sodium (Warfarin 2.5 Mg Tab) 2.5 mg PO Mo@1600 [facility] Warfarin Sodium (Warfarin 5 Mg Tab) 5 mg PO SuTuWeThFrSa@1600 [facility] Last Admin: 12/04/20 18:42 Dose: 5 mg Documented by: Discontinued Medications Al Hydroxide/Mg Hydroxide 30 (ml/ Lidocaine HCl 15 ml) 0 ml PO ONETIME ONE Stop: 12/04/20 09:58 Last Admin: 12/04/20 10:13 Dose: 45 ml Documented by: Iopamidol (Iopamidol 755 Mg/Ml 100 Ml Bottle) 100 ml IV . DIRECTED ONE Stop: 12/04/20 12:15 Last Admin: 12/04/20 13:16 Dose: 100 ml Documented by: Nitroglycerin (Nitroglycerin 0.4 Mg Tab.Sl) 0.4 mg SL ONETIME ONE Stop: 12/04/20 12:28 Last Admin: 12/04/20 17:54 Dose: Not Given Documented by: Ondansetron HCl (Ondansetron 4 Mg/2 Ml Sdv) 4 mg IVPUSH ONETIME ONE Stop: 12/04/20 11:32 Last Admin: 12/04/20 12:41 Dose: 4 mg Documented by: - Exam General: Alert, Oriented Lungs: Clear to Auscultation, Normal Respiratory Effort Cardiovascular: Regular Rate, Regular Rhythm, No Murmurs GI/Abdominal Exam: Normal Bowel Sounds, Soft, Non-Tender, No Organomegaly, No Distention - Patient Data Lab Results Last 24 hrs: Laboratory Results - last 24 hr 12/04/20 12/04/20 12/04/20 Range/Units 10:02 10:02 10:02 WBC 8.7 (3.2-10.1) x10-3/uL RBC 5.26 (3.90-5.90) x10(6)uL Hgb 15.7 (12.9-17.7) g/dL Hct 47.5 (38.3-50.1) % MCV 90.4 (80.8-98.7) fL MCH 29.9 (27.0-33.3) pg MCHC 33.1 (28.7-35.3) g/dL RDW 13.2 (12.4-15.0) % Plt Count 108 L (117-477) x10(3)uL MPV 9.6 (6.7-11.0) fL Neut % (Auto) 80.4 H (40.3-71.8) % Lymph % (Auto) 8.3 L (15.8-45.3) % Kay % (Auto) 10.6 (5.5-15.2) % Eos % (Auto) 0.4 (0.1-6.8) % Baso % (Auto) 0.3 (0.3-3.8) % Neut # (Auto) 7.0 H (1.7-6.9) x10-3/uL Lymph # (Auto) 0.7 (0.5-4.5) x10-3/uL Kay # (Auto) 0.9 (0.0-1.2) x10-3/uL Eos # (Auto) 0.0 (0.0-0.6) x10-3/uL Baso # (Auto) 0.0 (0.0-0.3) x10-3/uL Add Manual Diff Neutrophils % (Manual) (46-82) % Band Neutrophils % (0-6) % Lymphocytes % (Manual) (13-37) % Monocytes % (Manual) (4-12) % PT 24.0 H (9.0-11.1) sec INR 2.35 H (1.00-1.24) Sodium 136 (135-145) mmol/L Potassium 4.3 (3.5-5.3) mmol/L Chloride 100 (100-110) mmol/L Carbon Dioxide 29 (21-32) mmol/L BUN 17 D (7-18) mg/dL Creatinine 1.3 (0.70-1.30) mg/dL Est Cr Clr Drug Dosing TNP Estimated GFR (MDRD) 54 L (>60) BUN/Creatinine Ratio 13.1 (9-20) Glucose 166 H (80-116) mg/dL Calcium 8.0 L (8.6-10.2) mg/dL Total Bilirubin 2.0 H (0.1-1.3) mg/dL AST 203 H* D (5-25) IU/L ALT 155 H* D (12-36) U/L Alkaline Phosphatase 125 H (56-112) IU/L Ammonia Troponin I (4.0-60.3) pg/mL C-Reactive Protein (0.5-0.9) mg/dL NT-Pro-B Natriuret Pep (<=450) pg/mL Total Protein 7.4 (6.0-8.0) g/dL Albumin 3.8 (3.2-4.6) g/dL Globulin 3.6 g/dL Albumin/Globulin Ratio 1.1 Lipase (73-393) U/L Urine Color (YELLOW) Urine Appearance (CLEAR) Urine pH (5.0-6.5) Ur Specific [place] (1.010-1.025) Urine Protein (NEGATIVE) mg/dL Urine Glucose (UA) (NORMAL) mg/dL Urine Ketones (NEGATIVE) mg/dL Urine Occult Blood (NEGATIVE) Urine Nitrite (NEGATIVE) Urine Bilirubin (NEGATIVE) Urine Urobilinogen (NEGATIVE) mg/dL Ur Leukocyte Esterase (NEGATIVE) Urine RBC (0-5) Urine WBC (0-5) Ur Squamous Epith Cells (NS,R,O) Urine Bacteria (NS) SARS-CoV-2 RNA (SHADE) (NEGATIVE) 12/04/20 12/04/20 12/04/20 Range/Units 10:02 10:02 13:02 WBC (3.2-10.1) x10-3/uL RBC (3.90-5.90) x10(6)uL Hgb (12.9-17.7) g/dL Hct (38.3-50.1) % MCV (80.8-98.7) fL MCH (27.0-33.3) pg MCHC (28.7-35.3) g/dL RDW (12.4-15.0) % Plt Count (117-477) x10(3)uL MPV (6.7-11.0) fL Neut % (Auto) (40.3-71.8) % Lymph % (Auto) (15.8-45.3) % Kay % (Auto) (5.5-15.2) % Eos % (Auto) (0.1-6.8) % Baso % (Auto) (0.3-3.8) % Neut # (Auto) (1.7-6.9) x10-3/uL Lymph # (Auto) (0.5-4.5) x10-3/uL Kay # (Auto) (0.0-1.2) x10-3/uL Eos # (Auto) (0.0-0.6) x10-3/uL Baso # (Auto) (0.0-0.3) x10-3/uL Add Manual Diff Neutrophils % (Manual) (46-82) % Band Neutrophils % (0-6) % Lymphocytes % (Manual) (13-37) % Monocytes % (Manual) (4-12) % PT (9.0-11.1) sec INR (1.00-1.24) Sodium (135-145) mmol/L Potassium (3.5-5.3) mmol/L Chloride (100-110) mmol/L Carbon Dioxide (21-32) mmol/L BUN (7-18) mg/dL Creatinine (0.70-1.30) mg/dL Est Cr Clr Drug Dosing Estimated GFR (MDRD) (>60) BUN/Creatinine Ratio (9-20) Glucose (80-116) mg/dL Calcium (8.6-10.2) mg/dL Total Bilirubin (0.1-1.3) mg/dL AST (5-25) IU/L ALT (12-36) U/L Alkaline Phosphatase (56-112) IU/L Ammonia Troponin I 7.0 (4.0-60.3) pg/mL C-Reactive Protein 2.8 H* (0.5-0.9) mg/dL NT-Pro-B Natriuret Pep 424 (<=450) pg/mL Total Protein (6.0-8.0) g/dL Albumin (3.2-4.6) g/dL Globulin g/dL Albumin/Globulin Ratio Lipase 99 (73-393) U/L Urine Color Yellow (YELLOW) Urine Appearance Clear (CLEAR) Urine pH 7.0 H (5.0-6.5) Ur Specific [place] 1.005 L (1.010-1.025) Urine Protein Trace (NEGATIVE) mg/dL Urine Glucose (UA) Normal (NORMAL) mg/dL Urine Ketones Negative (NEGATIVE) mg/dL Urine Occult Blood Negative (NEGATIVE) Urine Nitrite Negative (NEGATIVE) Urine Bilirubin Small H (NEGATIVE) Urine Urobilinogen 4 H (NEGATIVE) mg/dL Ur Leukocyte Esterase Negative (NEGATIVE) Urine RBC 0-5 (0-5) Urine WBC 0-5 (0-5) Ur Squamous Epith Cells Occasional (NS,R,O) Urine Bacteria Few H (NS) SARS-CoV-2 RNA (SHADE) (NEGATIVE) 12/04/20 12/04/20 12/04/20 Range/Units 13:20 16:09 17:00 WBC (3.2-10.1) x10-3/uL RBC (3.90-5.90) x10(6)uL Hgb (12.9-17.7) g/dL Hct (38.3-50.1) % MCV (80.8-98.7) fL MCH (27.0-33.3) pg MCHC (28.7-35.3) g/dL RDW (12.4-15.0) % Plt Count (117-477) x10(3)uL MPV (6.7-11.0) fL Neut % (Auto) (40.3-71.8) % Lymph % (Auto) (15.8-45.3) % Kay % (Auto) (5.5-15.2) % Eos % (Auto) (0.1-6.8) % Baso % (Auto) (0.3-3.8) % Neut # (Auto) (1.7-6.9) x10-3/uL Lymph # (Auto) (0.5-4.5) x10-3/uL Kay # (Auto) (0.0-1.2) x10-3/uL Eos # (Auto) (0.0-0.6) x10-3/uL Baso # (Auto) (0.0-0.3) x10-3/uL Add Manual Diff Neutrophils % (Manual) (46-82) % Band Neutrophils % (0-6) % Lymphocytes % (Manual) (13-37) % Monocytes % (Manual) (4-12) % PT (9.0-11.1) sec INR (1.00-1.24) Sodium (135-145) mmol/L Potassium (3.5-5.3) mmol/L Chloride (100-110) mmol/L Carbon Dioxide (21-32) mmol/L BUN (7-18) mg/dL Creatinine (0.70-1.30) mg/dL Est Cr Clr Drug Dosing Estimated GFR (MDRD) (>60) BUN/Creatinine Ratio (9-20) Glucose (80-116) mg/dL Calcium (8.6-10.2) mg/dL Total Bilirubin (0.1-1.3) mg/dL AST (5-25) IU/L ALT (12-36) U/L Alkaline Phosphatase (56-112) IU/L Ammonia 9 Troponin I 6.3 (4.0-60.3) pg/mL C-Reactive Protein (0.5-0.9) mg/dL NT-Pro-B Natriuret Pep (<=450) pg/mL Total Protein (6.0-8.0) g/dL Albumin (3.2-4.6) g/dL Globulin g/dL Albumin/Globulin Ratio Lipase (73-393) U/L Urine Color (YELLOW) Urine Appearance (CLEAR) Urine pH (5.0-6.5) Ur Specific [place] (1.010-1.025) Urine Protein (NEGATIVE) mg/dL Urine Glucose (UA) (NORMAL) mg/dL Urine Ketones (NEGATIVE) mg/dL Urine Occult Blood (NEGATIVE) Urine Nitrite (NEGATIVE) Urine Bilirubin (NEGATIVE) Urine Urobilinogen (NEGATIVE) mg/dL Ur Leukocyte Esterase (NEGATIVE) Urine RBC (0-5) Urine WBC (0-5) Ur Squamous Epith Cells (NS,R,O) Urine Bacteria (NS) SARS-CoV-2 RNA (SHADE) Negative (NEGATIVE) 12/05/20 12/05/20 Range/Units 06:25 06:25 WBC 13.0 H (3.2-10.1) x10-3/uL RBC 4.90 (3.90-5.90) x10(6)uL Hgb 14.5 (12.9-17.7) g/dL Hct 44.5 (38.3-50.1) % MCV 90.8 (80.8-98.7) fL MCH 29.5 (27.0-33.3) pg MCHC 32.5 (28.7-35.3) g/dL RDW 13.6 (12.4-15.0) % Plt Count 95 L (117-477) x10(3)uL MPV 9.7 (6.7-11.0) fL Neut % (Auto) (40.3-71.8) % Lymph % (Auto) (15.8-45.3) % Kay % (Auto) (5.5-15.2) % Eos % (Auto) (0.1-6.8) % Baso % (Auto) (0.3-3.8) % Neut # (Auto) (1.7-6.9) x10-3/uL Lymph # (Auto) (0.5-4.5) x10-3/uL Kay # (Auto) (0.0-1.2) x10-3/uL Eos # (Auto) (0.0-0.6) x10-3/uL Baso # (Auto) (0.0-0.3) x10-3/uL Add Manual Diff Yes Neutrophils % (Manual) 87 H (46-82) % Band Neutrophils % 4 (0-6) % Lymphocytes % (Manual) 4 L (13-37) % Monocytes % (Manual) 5 (4-12) % PT (9.0-11.1) sec INR (1.00-1.24) Sodium 137 (135-145) mmol/L Potassium 3.9 (3.5-5.3) mmol/L Chloride 100 (100-110) mmol/L Carbon Dioxide 30 (21-32) mmol/L BUN 22 H (7-18) mg/dL Creatinine 1.5 H (0.70-1.30) mg/dL Est Cr Clr Drug Dosing 41.24 Estimated GFR (MDRD) 45 L (>60) BUN/Creatinine Ratio 14.7 (9-20) Glucose 135 H (80-116) mg/dL Calcium 7.9 L (8.6-10.2) mg/dL Total Bilirubin 3.3 H (0.1-1.3) mg/dL AST 153 H* D (5-25) IU/L ALT 208 H* D (12-36) U/L Alkaline Phosphatase 124 H (56-112) IU/L Ammonia Troponin I (4.0-60.3) pg/mL C-Reactive Protein (0.5-0.9) mg/dL NT-Pro-B Natriuret Pep (<=450) pg/mL Total Protein 6.6 (6.0-8.0) g/dL Albumin 3.2 (3.2-4.6) g/dL Globulin 3.4 g/dL Albumin/Globulin Ratio 0.9 Lipase (73-393) U/L Urine Color (YELLOW) Urine Appearance (CLEAR) Urine pH (5.0-6.5) Ur Specific [place] (1.010-1.025) Urine Protein (NEGATIVE) mg/dL Urine Glucose (UA) (NORMAL) mg/dL Urine Ketones (NEGATIVE) mg/dL Urine Occult Blood (NEGATIVE) Urine Nitrite (NEGATIVE) Urine Bilirubin (NEGATIVE) Urine Urobilinogen (NEGATIVE) mg/dL Ur Leukocyte Esterase (NEGATIVE) Urine RBC (0-5) Urine WBC (0-5) Ur Squamous Epith Cells (NS,R,O) Urine Bacteria (NS) SARS-CoV-2 RNA (SHADE) (NEGATIVE) Result Diagrams: 12/05/20 06:25 12/05/20 06:25 Sepsis Event Note - Evaluation Sepsis Screening Result: No Definite Risk - Focused Exam Vital Signs: Vital Signs Temp Pulse Pulse Resp BP BP Pulse Ox 12/05/20 08:00 75 116/54 L 12/05/20 05:00 98.1 F 72 18 113/58 L 99 12/05/20 03:00 75 18 92 L 12/05/20 00:00 97.4 F 81 18 128/60 95 Pulse Ox 12/05/20 08:00 12/05/20 05:00 12/05/20 03:00 12/05/20 00:00 95 - Problem List & Annotations (1) Elevated liver function tests SNOMED Code(s): 525715264 Code(s): R79.89 - OTHER SPECIFIED ABNORMAL FINDINGS OF BLOOD CHEMISTRY Status: Acute Current Visit: Yes (2) Nausea and vomiting SNOMED Code(s): 26096636 Code(s): R11.2 - NAUSEA WITH VOMITING, UNSPECIFIED Status: Acute Current Visit: Yes (3) Palliative care encounter SNOMED Code(s): 516055340, 791375937 Code(s): Z51.5 - ENCOUNTER FOR PALLIATIVE CARE Status: Acute Current Vis it: Yes (4) Substernal chest pain SNOMED Code(s): 5571079 Code(s): R07.2 - PRECORDIAL PAIN Status: Acute Current Visit: Yes (5) Cholelithiasis SNOMED Code(s): 009999235 Code(s): K80.20 - CALCULUS OF GALLBLADDER W/O CHOLECYSTITIS W/O OBSTRUCTION Status: Acute Current Visit: Yes (6) Acute kidney injury SNOMED Code(s): 17430362, 08244516 Code(s): N17.9 - ACUTE KIDNEY FAILURE, UNSPECIFIED Status: Acute Current Visit: Yes - Problem List Review Problem List Initiated/Reviewed/Updated: Yes - My Orders Last 24 Hours: My Active Orders 12/05/20 09:51 HEPATITIS PANEL (4) Routine - Plan Plan:: Told the patient that his white count was little bit elevated and his AST and ALT change positions and they're both the same. Bilirubin is up a little bit. Review the CT scans show cholelithiasis without cholecystitis and liver Doc system negative. Kidney test was elevated and white count was elevated. Have the chest x-ray read as no signs of pneumonia. I recommended he stay another day for observation. He says he feels fine and wants to go home. He has no symptoms at this time so I no reason to hold him symptomatically. So I will discharge him home to recheck with Dr. Lai the next 2 days with an ultrasound was gallbladder. Repeat LFTs. Will do a viral hepatitis panel before he leaves.
--- NOTE | 2020-12-05 10:00 | PCM.DCSUM1 ---
Discharge Summary - Hospital Course Free Text/Narrative:: Hospital course-patient was admitted for chest pain 8 with history of coronary artery disease. Last stress echo was done 6 months ago was negative. He had to troponins were negative. EKGs 2 had no stiff he had ST abnormalities. He was observed overnight and never had anymore chest pain or any symptoms. His LFTs were slightly elevated. The next morning ALT was higher than AST which was absent before and her about the same. Bili was slightly up and had a white count with a left shift. Had a chest x-ray read showed no pneumonia. No signs of infection anywhere. He does have cholelithiasis on CT scan and is intrahepatic delivery ductal system was negative. Patient was asymptomatic and tolerated food. I recommended he stay 1 more day to see how things play out. He insisted on going home. Since he is asymptomatic I discharge him home. I will get a viral hepatitis panel before he leaves. We'll have him check in the clinic with his primary provider next couple days. I'll order an ultrasound of his right upper quadrant. Brief History: Note that the patient is oriented to person and place and not fully oriented to time. Patient is a poor historian. Patient states that he came to the emergency department due to substernal chest pain. He states that he has had difficulty with this type of pain for several years. He states that he first had an exacerbation of this pain last night and that it continued this morning and that is why he came to the emergency department. He states that the pain was associated with some diaphoresis. He rated the pain as severe, 8 out of 10. He states that he normally takes some pills at home but does not know what he takes. States that those pills usually work but did not work last night or this morning. States that the pain started after dinner last night. He ate breakfast this morning but it did not make the pain any better or worse. He has nitroglycerin on his home medication list but did not take it at home. Review of his past medical record shows that he has had gallstones in the past, he also has a history of myocardial infarction last year and a history of CABG with aortic valve replacement on warfarin at this time. He denied other symptoms including shortness of breath, fever, cough, diarrhea. Evaluation in the emergency department showed EKG normal, troponin normal x2, elevated liver enzymes but he has had chronically elevated enzymes in the past, note they are more elevated at this time, mild thrombocytosis. Review of creatinine and GFR shows that the patient has had some decrease and renal function at this time. Chest x-ray and CT of the abdomen and pelvis performed in the emergency room were grossly unremarkable. Note that chest x-ray shows cardiomegaly, chronic atelectasis of the bases, possible congestion in the left upper lobe likely sec ondary to chronic pleural changes being followed by serial CTs. The patient has a left upper lobe nodule that is being followed. Diagnosis: Stroke: No - Discharge Data Discharge Date: 12/05/20 Discharge Disposition: Home, Self-Care 01 Condition: Good - Referral to Home Health Primary Care Physician: Carlos Newton MD - Discharge Diagnosis/Problem(s) (1) Elevated liver function tests SNOMED Code(s): 611925076 ICD Code: R79.89 - OTHER SPECIFIED ABNORMAL FINDINGS OF BLOOD CHEMISTRY Status: Acute Current Visit: Yes (2) Nausea and vomiting SNOMED Code(s): 87061625 ICD Code: R11.2 - NAUSEA WITH VOMITING, UNSPECIFIED Status: Acute Current Visit: Yes (3) Palliative care encounter SNOMED Code(s): 734384858, 251276858 ICD Code: Z51.5 - ENCOUNTER FOR PALLIATIVE CARE Status: Acute Current Visit: Yes (4) Substernal chest pain SNOMED Code(s): 8497261 ICD Code: R07.2 - PRECORDIAL PAIN Status: Acute Current Visit: Yes (5) Cholelithiasis SNOMED Code(s): 226577745 ICD Code: K80.20 - CALCULUS OF GALLBLADDER W/O CHOLECYSTITIS W/O OBSTRUCTION Status: Acute Current Visit: Yes (6) Acute kidney injury SNOMED Code(s): 82059690, 24390001 ICD Code: N17.9 - ACUTE KIDNEY FAILURE, UNSPECIFIED Status: Acute Current Visit: Yes - Patient Instructions Diet: Diabetic Diet Activity: As Tolerated Driving: May Drive Today Showering/Bathing: May Shower Notify Provider of: Fever, Increased Pain, Nausea and/or Vomiting Other/Special Instructions: 1. Recheck with Dr. Carlos Helton and 1-2 days. 2. Set up ultrasound right upper quadrant early this week at the clinic. 3. Recheck chem [address] point with Dr. Holverson. 4. Push fluids and avoid NSAIDs. - Discharge Plan Home Medications: Home Meds Losartan [Cozaar] 50 mg PO DAILY 12/01/17 [History] Simvastatin [Zocor] 40 mg PO BEDTIME 12/01/17 [History] Warfarin [Coumadin] 5 mg PO SUTUWETHFRSA 12/01/17 [History] metFORMIN [Glucophage] 500 mg PO BIDMEALS 12/01/17 [History] Omeprazole 20 mg PO DAILY 07/28/19 [History] Docusate Sodium 250 mg PO DAILY 09/23/19 [History] Warfarin [Coumadin] 2.5 mg PO MO 09/23/19 [History] Acetaminophen [Tylenol] 650 mg PO Q4H PRN tablet 09/26/19 [Rx] Aspirin [Halfprin] 81 mg PO DAILY tab.ec 09/26/19 [Rx] Metoprolol Tartrate [Lopressor] 50 mg PO BID tablet 09/26/19 [Rx] Forms: ED Department Discharge Referrals: Carlos Newton MD [Primary Care Provider] - - Discharge Summary/Plan Comment DC Time >30 min.: No - Patient Data Vitals - Most Recent: Last Vital Signs Temp 98.1 F 12/05/20 05:00 Pulse 75 12/05/20 08:00 Resp 18 12/05/20 05:00 BP 116/54 L 12/05/20 08:00 Pulse Ox 99 12/05/20 05:00 Weight - Most Recent: 213 lb Lab Results - Last 24 hrs: Laboratory Results - last 24 hr 12/04/20 12/04/20 12/04/20 Range/Units 10:02 10:02 10:02 WBC 8.7 (3.2-10.1) x10-3/uL RBC 5.26 (3.90-5.90) x10(6)uL Hgb 15.7 (12.9-17.7) g/dL Hct 47.5 (38.3-50.1) % MCV 90.4 (80.8-98.7) fL MCH 29.9 (27.0-33.3) pg MCHC 33.1 (28.7-35.3) g/dL RDW 13.2 (12.4-15.0) % Plt Count 108 L (117-477) x10(3)uL MPV 9.6 (6.7-11.0) fL Neut % (Auto) 80.4 H (40.3-71.8) % Lymph % (Auto) 8.3 L (15.8-45.3) % [place] % (Auto) 10.6 (5.5-15.2) % Eos % (Auto) 0.4 (0.1-6.8) % Baso % (Auto) 0.3 (0.3-3.8) % Neut # (Auto) 7.0 H (1.7-6.9) x10-3/uL Lymph # (Auto) 0.7 (0.5-4.5) x10-3/uL [place] # (Auto) 0.9 (0.0-1.2) x10-3/uL Eos # (Auto) 0.0 (0.0-0.6) x10-3/uL Baso # (Auto) 0.0 (0.0-0.3) x10-3/uL Add Manual Diff Neutrophils % (Manual) (46-82) % Band Neutrophils % (0-6) % Lymphocytes % (Manual) (13-37) % Monocytes % (Manual) (4-12) % PT 24.0 H (9.0-11.1) sec INR 2.35 H (1.00-1.24) Sodium 136 (135-145) mmol/L Potassium 4.3 (3.5-5.3) mmol/L Chloride 100 (100-110) mmol/L Carbon Dioxide 29 (21-32) mmol/L BUN 17 D (7-18) mg/dL Creatinine 1.3 (0.70-1.30) mg/dL Est Cr Clr Drug Dosing TNP Estimated GFR (MDRD) 54 L (>60) BUN/Creatinine Ratio 13.1 (9-20) Glucose 166 H (80-116) mg/dL Calcium 8.0 L (8.6-10.2) mg/dL Total Bilirubin 2.0 H (0.1-1.3) mg/dL AST 203 H* D (5-25) IU/L ALT 155 H* D (12-36) U/L Alkaline Phosphatase 125 H (56-112) IU/L Ammonia Troponin I (4.0-60.3) pg/mL C-Reactive Protein (0.5-0.9) mg/dL NT-Pro-B Natriuret Pep (<=450) pg/mL Total Protein 7.4 (6.0-8.0) g/dL Albumin 3.8 (3.2-4.6) g/dL Globulin 3.6 g/dL Albumin/Globulin Ratio 1.1 Lipase (73-393) U/L Urine Color (YELLOW) Urine Appearance (CLEAR) Urine pH (5.0-6.5) Ur Specific [place] (1.010-1.025) Urine Protein (NEGATIVE) mg/dL Urine Glucose (UA) (NORMAL) mg/dL Urine Ketones (NEGATIVE) mg/dL Urine Occult Blood (NEGATIVE) Urine Nitrite (NEGATIVE) Urine Bilirubin (NEGATIVE) Urine Urobilinogen (NEGATIVE) mg/dL Ur Leukocyte Esterase (NEGATIVE) Urine RBC (0-5) Urine WBC (0-5) Ur Squamous Epith Cells (NS,R,O) Urine Bacteria (NS) SARS-CoV-2 RNA (SHADE) (NEGATIVE) 12/04/20 12/04/20 12/04/20 Range/Units 10:02 10:02 13:02 WBC (3.2-10.1) x10-3/uL RBC (3.90-5.90) x10(6)uL Hgb (12.9-17.7) g/dL Hct (38.3-50.1) % MCV (80.8-98.7) fL MCH (27.0-33.3) pg MCHC (28.7-35.3) g/dL RDW (12.4-15.0) % Plt Count (117-477) x10(3)uL MPV (6.7-11.0) fL Neut % (Auto) (40.3-71.8) % Lymph % (Auto) (15.8-45.3) % [place] % (Auto) (5.5-15.2) % Eos % (Auto) (0.1-6.8) % Baso % (Auto) (0.3-3.8) % Neut # (Auto) (1.7-6.9) x10-3/uL Lymph # (Auto) (0.5-4.5) x10-3/uL [place] # (Auto) (0.0-1.2) x10-3/uL Eos # (Auto) (0.0-0.6) x10-3/uL Baso # (Auto) (0.0-0.3) x10-3/uL Add Manual Diff Neutrophils % (Manual) (46-82) % Band Neutrophils % (0-6) % Lymphocytes % (Manual) (13-37) % Monocytes % (Manual) (4-12) % PT (9.0-11.1) sec INR (1.00-1.24) Sodium (135-145) mmol/L Potassium (3.5-5.3) mmol/L Chloride (100-110) mmol/L Carbon Dioxide (21-32) mmol/L BUN (7-18) mg/dL Creatinine (0.70-1.30) mg/dL Est Cr Clr Drug Dosing Estimated GFR (MDRD) (>60) BUN/Creatinine Ratio (9-20) Glucose (80-116) mg/dL Calcium (8.6-10.2) mg/dL Total Bilirubin (0.1-1.3) mg/dL AST (5-25) IU/L ALT (12-36) U/L Alkaline Phosphatase (56-112) IU/L Ammonia Troponin I 7.0 (4.0-60.3) pg/mL C-Reactive Protein 2.8 H* (0.5-0.9) mg/dL NT-Pro-B Natriuret Pep 424 (<=450) pg/mL Total Protein (6.0-8.0) g/dL Albumin (3.2-4.6) g/dL Globulin g/dL Albumin/Globulin Ratio Lipase 99 (73-393) U/L Urine Color Yellow (YELLOW) Urine Appearance Clear (CLEAR) Urine pH 7.0 H (5.0-6.5) Ur Specific [place] 1.005 L (1.010-1.025) Urine Protein Trace (NEGATIVE) mg/dL Urine Glucose (UA) Normal (NORMAL) mg/dL Urine Ketones Negative (NEGATIVE) mg/dL Urine Occult Blood Negative (NEGATIVE) Urine Nitrite Negative (NEGATIVE) Urine Bilirubin Small H (NEGATIVE) Urine Urobilinogen 4 H (NEGATIVE) mg/dL Ur Leukocyte Esterase Negative (NEGATIVE) Urine RBC 0-5 (0-5) Urine WBC 0-5 (0-5) Ur Squamous Epith Cells Occasional (NS,R,O) Urine Bacteria Few H (NS) SARS-CoV-2 RNA (SHADE) (NEGATIVE) 12/04/20 12/04/20 12/04/20 Range/Units 13:20 16:09 17:00 WBC (3.2-10.1) x10-3/uL RBC (3.90-5.90) x10(6)uL Hgb (12.9-17.7) g/dL Hct (38.3-50.1) % MCV (80.8-98.7) fL MCH (27.0-33.3) pg MCHC (28.7-35.3) g/dL RDW (12.4-15.0) % Plt Count (117-477) x10(3)uL MPV (6.7-11.0) fL Neut % (Auto) (40.3-71.8) % Lymph % (Auto) (15.8-45.3) % [place] % (Auto) (5.5-15.2) % Eos % (Auto) (0.1-6.8) % Baso % (Auto) (0.3-3.8) % Neut # (Auto) (1.7-6.9) x10-3/uL Lymph # (Auto) (0.5-4.5) x10-3/uL [place] # (Auto) (0.0-1.2) x10-3/uL Eos # (Auto) (0.0-0.6) x10-3/uL Baso # (Auto) (0.0-0.3) x10-3/uL Add Manual Diff Neutrophils % (Manual) (46-82) % Band Neutrophils % (0-6) % Lymphocytes % (Manual) (13-37) % Monocytes % (Manual) (4-12) % PT (9.0-11.1) sec INR (1.00-1.24) Sodium (135-145) mmol/L Potassium (3.5-5.3) mmol/L Chloride (100-110) mmol/L Carbon Dioxide (21-32) mmol/L BUN (7-18) mg/dL Creatinine (0.70-1.30) mg/dL Est Cr Clr Drug Dosing Estimated GFR (MDRD) (>60) BUN/Creatinine Ratio (9-20) Glucose (80-116) mg/dL Calcium (8.6-10.2) mg/dL Total Bilirubin (0.1-1.3) mg/dL AST (5-25) IU/L ALT (12-36) U/L Alkaline Phosphatase (56-112) IU/L Ammonia 9 Troponin I 6.3 (4.0-60.3) pg/mL C-Reactive Protein (0.5-0.9) mg/dL NT-Pro-B Natriuret Pep (<=450) pg/mL Total Protein (6.0-8.0) g/dL Albumin (3.2-4.6) g/dL Globulin g/dL Albumin/Globulin Ratio Lipase (73-393) U/L Urine Color (YELLOW) Urine Appearance (CLEAR) Urine pH (5.0-6.5) Ur Specific [place] (1.010-1.025) Urine Protein (NEGATIVE) mg/dL Urine Glucose (UA) (NORMAL) mg/dL Urine Ketones (NEGATIVE) mg/dL Urine Occult Blood (NEGATIVE) Urine Nitrite (NEGATIVE) Urine Bilirubin (NEGATIVE) Urine Urobilinogen (NEGATIVE) mg/dL Ur Leukocyte Esterase (NEGATIVE) Urine RBC (0-5) Urine WBC (0-5) Ur Squamous Epith Cells (NS,R,O) Urine Bacteria (NS) SARS-CoV-2 RNA (SHADE) Negative (NEGATIVE) 12/05/20 12/05/20 Range/Units 06:25 06:25 WBC 13.0 H (3.2-10.1) x10-3/uL RBC 4.90 (3.90-5.90) x10(6)uL Hgb 14.5 (12.9-17.7) g/dL Hct 44.5 (38.3-50.1) % MCV 90.8 (80.8-98.7) fL MCH 29.5 (27.0-33.3) pg MCHC 32.5 (28.7-35.3) g/dL RDW 13.6 (12.4-15.0) % Plt Count 95 L (117-477) x10(3)uL MPV 9.7 (6.7-11.0) fL Neut % (Auto) (40.3-71.8) % Lymph % (Auto) (15.8-45.3) % [place] % (Auto) (5.5-15.2) % Eos % (Auto) (0.1-6.8) % Baso % (Auto) (0.3-3.8) % Neut # (Auto) (1.7-6.9) x10-3/uL Lymph # (Auto) (0.5-4.5) x10-3/uL [place] # (Auto) (0.0-1.2) x10-3/uL Eos # (Auto) (0.0-0.6) x10-3/uL Baso # (Auto) (0.0-0.3) x10-3/uL Add Manual Diff Yes Neutrophils % (Manual) 87 H (46-82) % Band Neutrophils % 4 (0-6) % Lymphocytes % (Manual) 4 L (13-37) % Monocytes % (Manual) 5 (4-12) % PT (9.0-11.1) sec INR (1.00-1.24) Sodium 137 (135-145) mmol/L Potassium 3.9 (3.5-5.3) mmol/L Chloride 100 (100-110) mmol/L Carbon Dioxide 30 (21-32) mmol/L BUN 22 H (7-18) mg/dL Creatinine 1.5 H (0.70-1.30) mg/dL Est Cr Clr Drug Dosing 41.24 Estimated GFR (MDRD) 45 L (>60) BUN/Creatinine Ratio 14.7 (9-20) Glucose 135 H (80-116) mg/dL Calcium 7.9 L (8.6-10.2) mg/dL Total Bilirubin 3.3 H (0.1-1.3) mg/dL AST 153 H* D (5-25) IU/L ALT 208 H* D (12-36) U/L Alkaline Phosphatase 124 H (56-112) IU/L Ammonia Troponin I (4.0-60.3) pg/mL C-Reactive Protein (0.5-0.9) mg/dL NT-Pro-B Natriuret Pep (<=450) pg/mL Total Protein 6.6 (6.0-8.0) g/dL Albumin 3.2 (3.2-4.6) g/dL Globulin 3.4 g/dL Albumin/Globulin Ratio 0.9 Lipase (73-393) U/L Urine Color (YELLOW) Urine Appearance (CLEAR) Urine pH (5.0-6.5) Ur Specific [place] (1.010-1.025) Urine Protein (NEGATIVE) mg/dL Urine Glucose (UA) (NORMAL) mg/dL Urine Ketones (NEGATIVE) mg/dL Urine Occult Blood (NEGATIVE) Urine Nitrite (NEGATIVE) Urine Bilirubin (NEGATIVE) Urine Urobilinogen (NEGATIVE) mg/dL Ur Leukocyte Esterase (NEGATIVE) Urine RBC (0-5) Urine WBC (0-5) Ur Squamous Epith Cells (NS,R,O) Urine Bacteria (NS) SARS-CoV-2 RNA (SHADE) (NEGATIVE) Med Orders - Current: Current Medications Acetaminophen (Acetaminophen 325 Mg Tab) 325 mg PO Q4H PRN PRN Reason: Fever Acetaminophen (Acetaminophen 325 Mg Supp) 325 mg RECTAL Q4H PRN PRN Reason: Fever Aspirin (Aspirin 81 Mg Tab.Ec) 81 mg PO DAILY [facility] Last Admin: 12/05/20 08:00 Dose: 81 mg Documented by: Docusate Sodium (Docusate Sodium 250 Mg Cap) 250 mg PO DAILY [facility] Ceftriaxone Sodium 1 gm/ (Sodium Chloride) 50 mls @ 200 mls/hr IV Q24H [facility] Last Admin: 12/04/20 18:42 Dose: 200 mls/hr Documented by: Labetalol HCl (Labetalol 20 Mg/4 Ml Syringe) 10 mg IVPUSH Q1H PRN; Protocol PRN Reason: Hypertension Losartan Potassium (Losartan 50 Mg Tab) 50 mg PO DAILY [facility] Last Admin: 12/05/20 08:00 Dose: 50 mg Documented by: Metoprolol Tartrate (Metoprolol Tartrate 50 Mg Tab) 50 mg PO BID [facility] Last Admin: 12/05/20 08:00 Dose: 50 mg Documented by: Ondansetron HCl (Ondansetron 4 Mg/2 Ml Sdv) 4 mg IVPUSH Q4H PRN PRN Reason: Nausea/Vomiting Pantoprazole Sodium (Pantoprazole 40 Mg Tab.Cr) 40 mg PO ACBREAKFAST [facility] Last Admin: 12/05/20 06:47 Dose: 40 mg Documented by: Simvastatin (Simvastatin 40 Mg Tab) 40 mg PO BEDTIME [facility] Last Admin: 12/04/20 21:16 Dose: 40 mg Documented by: Warfarin Sodium (Warfarin 2.5 Mg Tab) 2.5 mg PO Mo@1600 KIM Warfarin Sodium (Warfarin 5 Mg Tab) 5 mg PO SuTuWeThFrSa@1600 [facility] Last Admin: 12/04/20 18:42 Dose: 5 mg Documented by: Discontinued Medications Al Hydroxide/Mg Hydroxide 30 (ml/ Lidocaine HCl 15 ml) 0 ml PO ONETIME ONE Stop: 12/04/20 09:58 Last Admin: 12/04/20 10:13 Dose: 45 ml Documented by: Iopamidol (Iopamidol 755 Mg/Ml 100 Ml Bottle) 100 ml IV . DIRECTED ONE Stop: 12/04/20 12:15 Last Admin: 12/04/20 13:16 Dose: 100 ml Documented by: Nitroglycerin (Nitroglycerin 0.4 Mg Tab.Sl) 0.4 mg SL ONETIME ONE Stop: 12/04/20 12:28 Last Admin: 12/04/20 17:54 Dose: Not Given Documented by: Ondansetron HCl (Ondansetron 4 Mg/2 Ml Sdv) 4 mg IVPUSH ONETIME ONE Stop: 12/04/20 11:32 Last Admin: 12/04/20 12:41 Dose: 4 mg Documented by:
[2020-12-06] MEDS ORDERED: Warfarin 2.5 MG Tab PO SCH (16:00)
[2020-12-07 22:07] LABS: HBSAG SCREEN Negative (Negative); HEP A AB, IGM Negative (Negative); HEP B CORE AB, IGM Negative (Negative); HEP C VIRUS AB <0.1 s/co ratio (0.0-0.9)
== END 2020-12-05 10:45 | disposition home or self-care (01) ==
LOC: FB.ED 09:49 → FB.MS 15:18
PROVIDERS: ADMIT Emergency Medicine; ATTEND Family Medicine
DX: R07.2 Precordial pain (principal); R79.89 Other specified abnormal findings of blood chemistry; I25.10 Atherosclerotic heart disease of native coronary artery without angina pectoris; E78.00 Pure hypercholesterolemia, unspecified; I10 Essential (primary) hypertension; E11.9 Type 2 diabetes mellitus without complications; R61 Generalized hyperhidrosis; R11.2 Nausea with vomiting, unspecified; K80.20 Calculus of gallbladder without cholecystitis without obstruction; N17.9 Acute kidney failure, unspecified; Z79.82 Long term (current) use of aspirin; Z20.822 Contact with and (suspected) exposure to COVID-19; Z88.2 Allergy status to sulfonamides; Z79.899 Other long term (current) drug therapy; Z79.01 Long term (current) use of anticoagulants; Z98.890 Other specified postprocedural states; Z87.891 Personal history of nicotine dependence
CPT/HCPCS: 36410; 36415; 71045; 74177; 80053; 80074; 81001; 82140; 83690; 83880; 84484; 85025; 85610; 86140; 93005; 96374; 96375; 99285; A9270; G0378; J0696; J2405; Q9967; U0002; 94760

== ENCOUNTER 2020-12-20 08:57 | Day surgery (SDC) | payer MEDICARE, OTHER ==
--- NOTE | 2020-12-17 12:38 | PREOP ---
ADMISSION DATE: 12/20/2020 DATE OF SURGERY: 12/20/2020. PROCEDURE: Laparoscopic cholecystectomy and indicated procedure. INDICATIONS: Symptomatic cholelithiasis. ANESTHESIA: General. SURGEON OF RECORD: Dr. Scott Vázquez. CONSULTING PHYSICIAN: Dr. Carlos Newton, [facility]. HISTORY OF PRESENT ILLNESS: Mr. Turk is a 75-year-old, single, semiretired male from [place], who was seen in [facility] on 12/14/2020 for preop stated clearance. He is scheduled for laparoscopic cholecystectomy on 12/20/2020 under the care of Dr. Scott Vázquez, [facility]. Please see Dr. Vázquez's clinical notes for recommendations, risks, and benefits. Preoperative clearance is because of presence of an aortic valve replacement performed in December 2014 due to aortic valve stenotic disease. There were no complicating issues and he continues to use metal aortic valve, on Coumadin therapy. I spoke at length with [facility] at [facility]. They will be instructing Radu to proceed with transition bridging anticoagulant therapy. His last Coumadin was taken today this morning 12/15/2020 and will be continued until completion of the surgical procedure. [facility] will proceed with their management. CURRENT MEDICATIONS: Daily medications include: 1. Docusate 250 one p.o. daily constipation. 2. Tylenol p.r.n. pain. 3. Hydrochlorothiazide 25 mg 1 p.o. daily blood pressure. 4. Losartan 50 mg 1 p.o. daily blood pressure. 5. Metformin 500 mg b.i.d. NIDDM. 6. Lopressor 50 mg 1 p.o. b.i.d. blood pressure/heart. 7. Prilosec 20 mg 1 p.o. daily GERD. 8. Simvastatin 40 mg 1 p.o. daily, hyperlipidemia and NIDDM. 9. Coumadin per protocol. 10.Albuterol limited use p.r.n. 11.Baby aspirin. ALLERGIES: Allergic to sulfa. No other medication, environmental, or latex allergies. PAST MEDICAL HISTORY: Significant for bilateral cataract surgeries in August and August 2019, aortic valve replacement in 2014, and remote herniorrhaphy. No other operative procedures, hospitalizations, unusual childhood diseases. Chronic renal disease, hypertension, hyperlipidemia, and well controlled diabetes mellitus. Last A1c in August 2020, 6.3. 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 Never . Remotely smoked a long time ago. No vaping. No chewing. No alcohol. FAMILY HISTORY: Noncontributory. REVIEW OF SYSTEMS: GENERAL: Feeling well. EYES: Sees well, cataract surgery. EARS: Difficulty in crowds. Hearing loss. OROPHARYNX: Intact dentition. CHEST: No cough, wheeze, or congestion. CV: Denies chest pain. GI: Regular predictable stools. Please see HPI. : Voiding comfortably. Nocturia x1. SKIN: No lesions, eruptions, or moles. ENDOCRINE: No excessive thirst or urination. Diabetes well controlled. ORTHOPEDIC: Generalized joint complaints. PSYCHIATRIC: Mood stable. PHYSICAL EXAMINATION: VITAL SIGNS: Temperature 97.9, weight 207.6, height 69 inches, pulse 65, blood pressure 116/54, O2 saturation 94 to 95. GENERAL: Elderly gentleman, cooperative, conversant, appears stated age. HEENT: Funduscopic benign. Conjunctivae clear. Bright tympanic membranes. No cerumen. Decreased hearing. Clear nasal discharge. Mouth and oropharynx revealed fair dentition. No loose teeth. Tongue midline. Good gag reflex. NECK: Benign. Thyroid small. No adenopathy. CHEST: On auscultation, clear all lung cannon. HEART: On auscultation, normal sinus rhythm, no ectopy. Systolic click per aortic valve noted. BREASTS: Normal male breasts. ABDOMEN: Benign. Lower abdominal herniorrhaphy scar well healed. No hepatosplenomegaly. No palpable masses. AND RECTAL: Declined, deferred. SKIN: Was examined, sites included, no new lesions. LABORATORY STUDIES: CBC revealed white count 7200, hemoglobin 15.0, normal indices, platelets 190,000. Comprehensive metabolic panel revealed random glucose 125, BUN 21, creatinine 1.17, GFR 60, and normal liver enzymes. It should be noted cardiovascular testing on 05/18/2020, revealed normal valve anatomy, ejection fraction 63%, and no ischemic changes. ASSESSMENT: Preop examination for upcoming symptomatic laparoscopic cholecystectomy, no contraindications. SECONDARY DIAGNOSES: 1. Aortic valve replacement in 2014. 2. Bilateral cataract surgery. 3. Remote herniorrhaphy. 4. Hgy-iinpjpx-ldupretdp diabetes mellitus, appropriate medical management. PLAN: As mentioned [facility] will make recommendations on bridging anticoagulation in the interim. Coumadin will be held as of 12/15/2020. Resumption of the Coumadin can begin as allowed postoperatively. Please let Dr. Vázquez know that this H and P has been completed. /[id number] PEDRO/DANII
[2020-12-20] MEDS ORDERED: Ondansetron 4 MG/2 ML SDV IVPUSH ONE (08:58)
[2020-12-20] MEDS ORDERED: Rocuronium 100 MG/10 ML MDV IV ONE (08:58)
[2020-12-20] MEDS ORDERED: fentaNYL 100 MCG/2 ML SDV IV ONE (08:58)
[2020-12-20] MEDS ORDERED: Propofol 200 MG/20 ML SDV IV ONE (08:58)
[2020-12-20] MEDS ORDERED: Lactated Ringers 1,000 ML IV ONE (08:58)
[2020-12-20] MEDS ORDERED: Midazolam 1 MG/ML 2 ML SDV IV ONE (08:58)
[2020-12-20] MEDS ORDERED: Sugammadex Sodium 200 MG/2 ML VIAL IV ONE (08:58)
[2020-12-20] MEDS ORDERED: Dexamethasone 4 MG/ML 5 ML MDV IVPUSH ONE (08:58)
[2020-12-20] MEDS ORDERED: Lidocaine 2% 100 MG/5 ML Syringe IVPUSH ONE (08:58)
[2020-12-20] MEDS ORDERED: Sodium Chloride 0.9% 10 ML Syringe FLUSH PRN (09:00)
[2020-12-20] MEDS ORDERED: Lactated Ringers 1,000 ML IV SCH (09:00)
[2020-12-20] MEDS ORDERED: ceFAZolin 2 GM in Premix Bag 1 BAG IV ONE (10:30)
--- NOTE | 2020-12-20 10:59 | PCM.PN ---
- General Info Date of Service: 12/20/20 - Review of Systems Systems Review Comment:: 75 y/o male with symptomatic cholelithiasis here for cholecystectomy. He is medically stable to proceed. His recent H and P is reviewed and no significant changes are noted. I have discussed the proposed cholecystectomy with the patient. His questions are answered. Risks have been reviewed. He agrees to proceed. - Patient Data Vitals - Most Recent: Last Vital Signs Temp 97.9 F 12/20/20 09:30 Pulse 60 12/20/20 09:30 Resp 16 12/20/20 09:30 BP 175/77 H 12/20/20 09:30 Pulse Ox 98 12/20/20 09:30 Weight - Most Recent: 213 lb 10.047 oz Lab Results Last 24 Hours: Laboratory Results - last 24 hr 12/20/20 12/20/20 12/20/20 Range/Units 09:50 09:50 10:14 Plt Count 141 (117-477) x10(3)uL PT 10.9 (9.0-11.1) sec INR 1.01 (1.00-1.24) POC Glucose 88 (80-116) mg/dL Med Orders - Current: Current Medications Lactated Ringer's (Ringers, Lactated) 1,000 mls @ 125 mls/hr IV ASDIRECTED [facility]IM Last Admin: 12/20/20 09:45 Dose: 125 mls/hr Documented by: Sodium Chloride (Sodium Chloride 0.9% 10 Ml Syringe) 10 ml FLUSH ASDIRECTED PRN PRN Reason: Keep Vein Open Discontinued Medications Cefazolin Sodium/Dextrose 2 gm (/ Premix) 50 mls @ 200 mls/hr IV ONETIME ONE Stop: 12/20/20 10:44 Last Admin: 12/20/20 09:45 Dose: 200 mls/hr Documented by: - Patient Data Lab Results Last 24 hrs: Laboratory Results - last 24 hr 12/20/20 12/20/20 12/20/20 Range/Units 09:50 09:50 10:14 Plt Count 141 (117-477) x10(3)uL PT 10.9 (9.0-11.1) sec INR 1.01 (1.00-1.24) POC Glucose 88 (80-116) mg/dL Result Diagrams: 12/20/20 09:50 Sepsis Event Note - Focused Exam Vital Signs: Vital Signs Temp Pulse Resp BP Pulse Ox 12/20/20 09:30 97.9 F 60 16 175/77 H 98 - Problem List Review Problem List Initiated/Reviewed/Updated: Yes - My Orders Last 24 Hours: My Active Orders 12/20/20 Breakfast Nothing Per Oral Diet [DIET] 12/20/20 09:00 Patient Status [ADT] Routine Blood Glucose Check, Bedside [RC] ONETIME Patient to Empty Bladder [RC] ASDIRECTED RT Incentive Spirometry [RC] ASDIRECTED Verify Patient Consent Obtain [RC] ASDIRECTED Lactated Ringers [Ringers, Lactated] 1,000 ml IV ASDIRECTED Sodium Chloride 0.9% [Saline Flush] 10 ml FLUSH ASDIRECTED PRN Peripheral IV Insertion Adult [OM.PC] Routine Sequential Compression Device [OM.PC] Routine - Assessment Assessment:: Symptomatic Cholelithiasis - Plan Plan:: Cholecystectomy
[2020-12-20] MEDS ORDERED: Bupivacaine 0.5% 50 ML MDV INJECT ONE (11:17)
[2020-12-20] MEDS ORDERED: Albuterol/Ipratropium 3.0-0.5 MG/3 ML Neb Soln NEB ONE (12:57)
--- NOTE | 2020-12-20 13:30 | PCM.OPNOTE ---
- General Post-Op/Procedure Note Date of Surgery/Procedure: 12/20/20 Operative Procedure(s): Laparoscopic Cholecystectomy Findings: Enlarged gallbladder with multiple small black stones Pre Op Diagnosis: Symptomatic Cholelithiasis Post-Op Diagnosis: Same Anesthesia Technique: General ET Tube Primary Surgeon: Scott Vázquez Pathology: Gallbladder EBL in mLs: 20 Complications: None Condition: Good
[2020-12-20 14:43] VITALS: BP 152/62; PULSE 73
--- NOTE | 2020-12-20 20:35 | OR ---
DATE OF OPERATION: 12/20/2020 SURGEON: Scott Vázquez MD PREOPERATIVE DIAGNOSIS: Symptomatic cholelithiasis. POSTOPERATIVE DIAGNOSIS: Symptomatic cholelithiasis. OPERATION PERFORMED: Laparoscopic cholecystectomy. INDICATIONS FOR SURGERY: A 75-year-old male who has recently been diagnosed with cholelithiasis by a CT scan. This was performed because of episodes of chest and abdominal pain. FINDINGS: The patient's gallbladder does show adhesions to its lower surface consistent with prior episodes of inflammation. It is dilated and contains multiple small black stones. No other abnormalities were seen laparoscopically. PROCEDURE IN DETAIL: The patient was taken to the operating room. He was given general endotracheal anesthesia and the abdomen was sterilely prepped and draped. A supraumbilical stab wound incision was made. Through this, a Veress needle was inserted and pneumoperitoneum via this needle to a pressure of 15 mmHg was achieved with carbon dioxide. The Veress needle was then replaced with a 12 mm trocar into which the 5 mm variable angled laparoscopic camera was inserted. Under direct visualization, 5 mm trocars were placed in the subxiphoid midline and in 2 areas of the right abdomen. All trocar sites were infiltrated with Marcaine prior to incision. Intra-abdominal inspection was carried out and attention was turned to the gallbladder. It was secured with grasping forceps and retracted superiorly and anteriorly. Fatty tissue overlying the lower portion of the gallbladder was carefully taken down and dissection identified the cystic duct. This was isolated and then additional dissection in the triangle of Calot identified the cystic artery which was doubly clipped and divided. The triangle of Calot was cleared confirming the identity of the cystic duct, and it was then milked and doubly clipped and divided near the gallbladder with great care being used to avoid injury or compromise to the common bile duct. The gallbladder was then dissected free from the undersurface of the liver using the hook cautery device. Once this had been accomplished, the gallbladder was extracted through the largest trocar site. This did require opening the gallbladder extra-abdominally and extracting the bile, but there was no stone or bile spillage intra-abdominally. Reinspection of the gallbladder bed was carried out and good hemostasis was achieved with the use of cautery and supplemented with powdered anticoagulant. With no sign of any bleeding or any other complication, and after copious irrigation of the operative region, the trocars were removed under direct visualization and the pneumoperitoneum was evacuated. The fascia of the umbilical trocar site was closed with a [id number] 0 Vicryl suture. Wounds were irrigated with Betadine and saline solution. Skin incisions were approximated with interrupted 4-0 Vicryl in subcuticular stitch. Benzoin and Steri-Strips followed by antibiotic ointment and sterile dressings were placed. The patient was awakened, extubated, and taken from the operating room in satisfactory condition. ESTIMATED BLOOD LOSS: 20 mL. COMPLICATIONS: None. PROGNOSIS: Good. /[id number] 2024 NATHANIEL/MODL
== END 2020-12-20 15:03 | disposition home or self-care (01) ==
LOC: FB.SDS 08:57
PROVIDERS: ATTEND Surgery
DX: K80.10 Calculus of gallbladder with chronic cholecystitis without obstruction (principal); K59.00 Constipation, unspecified; K21.9 Gastro-esophageal reflux disease without esophagitis; E78.5 Hyperlipidemia, unspecified; I12.9 Hypertensive chronic kidney disease with stage 1 through stage 4 chronic kidney disease, or unspecified chronic kidney disease; E11.22 Type 2 diabetes mellitus with diabetic chronic kidney disease; N18.9 Chronic kidney disease, unspecified; Z87.891 Personal history of nicotine dependence; Z79.899 Other long term (current) drug therapy; Z79.84 Long term (current) use of oral hypoglycemic drugs; Z88.2 Allergy status to sulfonamides; Z91.040 Latex allergy status; Z98.890 Other specified postprocedural states
CPT/HCPCS: 00790-QZ; 82947; 85049; 85610; 88304; 94150; 94640; J0690; J1100; J2250; J2405; J2704; J3010; J3490; J7120; J7620-GY

== ENCOUNTER 2020-12-26 15:57 | Emergency (ER) | payer MEDICARE, OTHER ==
[2020-12-26] MEDS ORDERED: Sodium Chloride 0.9% 10 ML Syringe FLUSH PRN (16:16)
[2020-12-26] MEDS ORDERED: Sodium Chloride 0.9% 500 ML IV ONE (16:16)
--- NOTE | 2020-12-26 16:22 | EDM.PDOC ---
ED HPI GENERAL MEDICAL PROBLEM - General Chief Complaint: Abdominal Pain Stated Complaint: ABDOMINAL PAIN Time Seen by Provider: 12/26/20 16:17 Source of Information: Reports: Patient History Limitations: Reports: No Limitations - History of Present Illness INITIAL COMMENTS - FREE TEXT/NARRATIVE: Presents with intermittent low abdominal pain and nausea since last night. He is s/p lap domi on 12/20/[address] Vázquez. Had a BM today. Denies urinary complaints. Onset Date: 12/25/20 Location: Reports: Abdomen Severity: Moderate Lower Abdominal Pain Score (Numeric/FACES): 9 - Related Data Allergies Allergy/AdvReac Type Severity Reaction Status Date / Time Sulfa (Sulfonamide Allergy Hives Verified 12/17/20 10:39 Antibiotics) Home Meds: Home Meds Losartan [Cozaar] 50 mg PO DAILY 12/01/17 [History] Simvastatin [Zocor] 40 mg PO BEDTIME 12/01/17 [History] Warfarin [Coumadin] 5 mg PO DAILY 12/01/17 [History] metFORMIN [Glucophage] 500 mg PO BIDMEALS 12/01/17 [History] Omeprazole 20 mg PO DAILY 07/28/19 [History] Docusate Sodium 250 mg PO DAILY 09/23/19 [History] Aspirin [Halfprin] 81 mg PO DAILY tab.ec 09/26/19 [Rx] Metoprolol Tartrate [Lopressor] 50 mg PO BID tablet 09/26/19 [Rx] Hydrocodone/Acetaminophen [Hydrocodon-Acetaminophen 5-325] 1 - 2 tab PO Q4HR PRN #20 tablet 12/20/20 [Rx] Past Medical History HEENT History: Reports: Cataract, Hard of Hearing, Impaired Vision, Other (See Below) Other HEENT History: MEIBOMIAN GLAND DYSFUNCTION, BILATERAL BOTH UPPER & LOWER LIDS. TEAR FILM INSUFFICIENCY. HYPEROPIA. REGULAR ASTIGMATISM OF BOTH EYES. PRESBYOPIA. DENTAL CARRIES Cardiovascular History: Reports: CAD, Heart Valve Replacement (mechanical), High Cholesterol, Hypertension Other Cardiovascular History: AORTIC STENOSIS Respiratory History: Reports: Other (See Below) Other Respiratory History: former smoker, has inhaler as needed. Gastrointestinal History: Reports: Cholelithiasis, GERD Musculoskeletal History: Reports: Arthritis Neurological History: Reports: None Psychiatric History: Reports: None Endocrine/Metabolic History: Reports: Diabetes, Type II Hematologic History: Reports: Anticoagulation Therapy Immunologic History: Reports: None Oncologic (Cancer) History: Reports: None Dermatologic History: Reports: None - Infectious Disease History Infectious Disease History: Reports: Chicken Pox, Mumps - Past Surgical History HEENT Surgical History: Reports: Cataract Surgery Cardiovascular Surgical History: Reports: Coronary Artery Bypass, Valve Replacement (aortic, mechanical) GI Surgical History: Reports: Cholecystectomy (12/20/20) Male Surgical History: Reports: Other (See Below) Other Male Surgeries/Procedures: HERNIA WITH OBSTRUCTION. GALLSTONES. HERNIA REPAIR Social & Family History - Family History Family Medical History: No Pertinent Family History - Caffeine Use Caffeine Use: Reports: None Caffeine Use Comment: 4 cups coffee per day and 2 cans pop per day. ED ROS GENERAL - Review of Systems Review Of Systems: Comprehensive ROS is negative, except as noted in HPI. ED EXAM, GI/ABD - Physical Exam Exam: See Below Exam Limited By: No Limitations General Appearance: Alert, WD/WN, No Apparent Distress Throat/Mouth: No Airway Compromise Head: Atraumatic, Normocephalic Neck: Full Range of Motion Respiratory/Chest: No Respiratory Distress, Lungs Clear, Normal Breath Sounds Cardiovascular: Regular Rate, Rhythm, No Murmur GI/Abdominal Exam: Normal Bowel Sounds, Soft, No Distention, Tender (low abdomen) Extremities: Normal Range of Motion Neurological: Alert, Oriented, Normal Cognition Psychiatric: Normal Affect, Normal Mood Skin Exam: Warm, Dry, Other (Laprascopic incisions are clean, dry, and intact, no evidence for wound infection.) Course - Vital Signs Last Recorded V/S: Last Vital Signs Temp 36.0 C L 12/26/20 16:06 Pulse 102 H 12/26/20 16:06 Resp 18 12/26/20 16:06 BP 140/60 12/26/20 16:06 Pulse Ox 97 12/26/20 16:06 - Orders/Labs/Meds Orders: Active Orders 24 hr Category Date Time Status Bladder Scan [RC] ASDIRECTED Care 12/26/20 16:25 Active Abdomen Pelvis w Cont [CT] Stat Exams 12/26/20 16:37 Taken UA W/MICROSCOPIC [URIN] Stat Lab 12/26/20 16:16 Ordered Sodium Chloride 0.9% [Saline Flush] Med 12/26/20 16:16 Active 10 ml FLUSH ASDIRECTED PRN Saline Lock Insert [OM.PC] Routine Oth 12/26/20 16:16 Ordered Medication Orders Sodium Chloride (Sodium Chloride 0.9% 10 Ml Syringe) 10 ml FLUSH ASDIRECTED PRN PRN Reason: Keep Vein Open Labs: Laboratory Tests 12/26/20 12/26/20 12/26/20 Range/Units 16:22 16:22 16:22 WBC 11.4 H (3.2-10.1) x10-3/uL RBC 4.51 (3.90-5.90) x10(6)uL Hgb 13.1 (12.9-17.7) g/dL Hct 40.5 (38.3-50.1) % MCV 89.9 (80.8-98.7) fL MCH 29.0 (27.0-33.3) pg MCHC 32.3 (28.7-35.3) g/dL RDW 13.5 (12.4-15.0) % Plt Count 153 (117-477) x10(3)uL MPV 10.0 (6.7-11.0) fL Add Manual Diff Yes Neutrophils % (Manual) 91 H (46-82) % Lymphocytes % (Manual) 5 L (13-37) % Monocytes % (Manual) 4 (4-12) % PT 22.8 H (9.0-11.1) sec INR 2.22 H (1.00-1.24) Sodium 134 L (135-145) mmol/L Potassium 4.9 D (3.5-5.3) mmol/L Chloride 95 L D (100-110) mmol/L Carbon Dioxide 27 (21-32) mmol/L BUN 27 H (7-18) mg/dL Creatinine 1.6 H (0.70-1.30) mg/dL Est Cr Clr Drug Dosing 37.41 mL/min Estimated GFR (MDRD) 42 L (>60) BUN/Creatinine Ratio 16.9 (9-20) Glucose 216 H D (80-116) mg/dL Calcium 8.8 (8.6-10.2) mg/dL Total Bilirubin 0.6 (0.1-1.3) mg/dL AST 40 H D (5-25) IU/L ALT 123 H D (12-36) U/L Alkaline Phosphatase 179 H (56-112) IU/L Total Protein 7.3 (6.0-8.0) g/dL Albumin 3.4 (3.2-4.6) g/dL Globulin 3.9 g/dL Albumin/Globulin Ratio 0.9 Meds: Medications Generic Name Dose Route Start Last Admin Trade Name Carlos PRN Reason Stop Dose Admin Sodium Chloride 10 ml 12/26/20 16:16 Sodium Chloride 0.9% 10 Ml Syringe FLUSH ASDIRECTED PRN Keep Vein Open Discontinued Medications Generic Name Dose Route Start Last Admin Trade Name Carlos PRN Reason Stop Dose Admin Sodium Chloride 500 mls @ 500 mls/hr 12/26/20 16:16 12/26/20 18:10 Normal Saline IV 12/26/20 17:15 500 mls/hr .BOLUS ONE Administration Iopamidol 75 ml 12/26/20 16:39 12/26/20 17:39 Iopamidol 755 Mg/Ml 75 Ml Bottle IV 12/26/20 16:40 Not Given ONETIME ONE Iopamidol 75 ml 12/26/20 17:47 12/26/20 17:53 Iopamidol 755 Mg/Ml 75 Ml Bottle IV 12/26/20 17:48 75 ml ONETIME ONE Administration - Re-Assessments/Exams Free Text/Narrative Re-Assessment/Exam: 12/26/20 19:00 Patient care transferred to Dr. Zacarias. Departure - Departure Time of Disposition: 19:00 Disposition: Still A Patient 30 Clinical Impression: Abdominal pain Qualifiers: Abdominal location: lower abdomen, unspecified Qualified Code(s): R10.30 - Lower abdominal pain, unspecified - Discharge Information Referrals: Carlos Newton MD [Primary Care Provider] - Forms: ED Department Discharge Sepsis Event Note (ED) - Evaluation Sepsis Screening Result: No Definite Risk - Focused Exam Vital Signs: Vital Signs Temp Pulse Resp BP Pulse Ox 12/26/20 16:06 36.0 C L 102 H 18 140/60 97 - My Orders Last 24 Hours: My Active Orders 12/26/20 16:16 UA W/MICROSCOPIC [URIN] Stat Sodium Chloride 0.9% [Saline Flush] 10 ml FLUSH ASDIRECTED PRN Saline Lock Insert [OM.PC] Routine 12/26/20 16:25 Bladder Scan [RC] ASDIRECTED 12/26/20 16:37 Abdomen Pelvis w Cont [CT] Stat - Assessment/Plan Last 24 Hours: My Active Orders 12/26/20 16:16 UA W/MICROSCOPIC [URIN] Stat Sodium Chloride 0.9% [Saline Flush] 10 ml FLUSH ASDIRECTED PRN Saline Lock Insert [OM.PC] Routine 12/26/20 16:25 Bladder Scan [RC] ASDIRECTED 12/26/20 16:37 Abdomen Pelvis w Cont [CT] Stat
[2020-12-26] MEDS ORDERED: Iopamidol 755 Mg/ML 75 ML Bottle IV ONE ×2 (16:39→17:47)
--- NOTE | 2020-12-26 18:03 | PCM.SN.2 ---
- Free Text/Narrative Note: [facility] Date: 12/26/2020 Time: 1645 to 1731 Dx: S/P Laparoscopic Cholecystectomy 12/20/2020 with Abdominal Pain,and Very Poor Peripheral Vascular Access Rx: Obtain Peripheral Venous Access Procedure: Placement of Peripheral Venous Catheter. I was called by the ED RN for placement of a venous access catheter. He has a H/o difficult venous access with his gallbladder surgery. I attempted a total of 6 times [right upper arm / forearm / foot / left ACF and hand] without succ ess [3 veins ruptured]. I did find a deep left lateral mid-forearm vein and prepped it with Chlora-Prep sponge. I then inserted and advanced a BD Insyte Autoguard BC Winged 22 Ga. X 1.00 In. catheter times 1 attempt. It flushed easily without problems and an Op-Site dressing was applied. He tolerated this procedure very well. Carlos Cristobal CRNA Ila
[2020-12-26 19:16] VITALS: BP 119/52; PULSE 87
== END 2020-12-26 20:07 ==
LOC: FB.ED 15:57
DX: R10.31 Right lower quadrant pain (principal); R10.32 Left lower quadrant pain; R11.0 Nausea; E78.00 Pure hypercholesterolemia, unspecified; I10 Essential (primary) hypertension; K21.9 Gastro-esophageal reflux disease without esophagitis; E11.9 Type 2 diabetes mellitus without complications; I25.10 Atherosclerotic heart disease of native coronary artery without angina pectoris; Z79.01 Long term (current) use of anticoagulants; Z79.84 Long term (current) use of oral hypoglycemic drugs; Z79.899 Other long term (current) drug therapy; Z90.49 Acquired absence of other specified parts of digestive tract; Z95.1 Presence of aortocoronary bypass graft
CPT/HCPCS: 36410; 36415; 74177; 80053; 85025; 85610; 99284-25; J7040; Q9967

== ENCOUNTER 2021-07-17 13:15 | Emergency (ER) | payer MEDICARE, OTHER ==
[2021-07-17 13:48] VITALS: BP 149/54; PULSE 69
== END 2021-07-17 14:00 | disposition home or self-care (01) ==
LOC: FB.ED 13:15
DX: K64.9 Unspecified hemorrhoids (principal); I48.91 Unspecified atrial fibrillation; I25.10 Atherosclerotic heart disease of native coronary artery without angina pectoris; E78.00 Pure hypercholesterolemia, unspecified; I10 Essential (primary) hypertension; E11.9 Type 2 diabetes mellitus without complications; Z88.2 Allergy status to sulfonamides; Z79.899 Other long term (current) drug therapy; Z79.82 Long term (current) use of aspirin; Z87.891 Personal history of nicotine dependence
CPT/HCPCS: 99282; 99283

== ENCOUNTER 2022-03-13 08:43 | Inpatient (IN) | payer MEDICARE, OTHER ==
[2022-03-13 10:56] LABS: ESTIMATED GFR 62 mL/min (>60)
[2022-03-13] MEDS ORDERED: Azithromycin 500 MG in Sodium Chloride 0.9% 250 ML IV SCH (12:30)
[2022-03-13] MEDS ORDERED: cefTRIAXone 1 GM in Sodium Chloride 0.9% 50 ML IV SCH (12:30)
[2022-03-13] MEDS ORDERED: Fluticasone NASAL Spray 16 GM Bottle NASBOTH PRN (12:38)
[2022-03-13] MEDS ORDERED: Nitroglycerin 0.4 MG Tab.SL SL PRN (12:38)
[2022-03-13] MEDS ORDERED: Warfarin Sliding Scale PO SCH (12:45)
[2022-03-13] MEDS ORDERED: Doxycycline 100 MG in Sodium Chloride 0.9% 100 ML IV SCH (13:15)
[2022-03-13] MEDS: Sodium Chloride 0.9% 10 ML Syringe FLUSH PRN ×3 (13:22→14:37)
[2022-03-13] MEDS: cefTRIAXone 1 GM Vial IVPUSH SCH (13:22)
[2022-03-13] MEDS: Doxycycline 100 MG in Sodium Chloride 0.9% 100 ML IV SCH (13:22)
[2022-03-13] MEDS: Warfarin 5 MG Tab PO SCH (15:33)
[2022-03-13] MEDS: metFORMIN 500 MG Tab PO SCH (17:55)
[2022-03-13] MEDS: atorvaSTATin 40 MG Tab PO SCH (17:55)
[2022-03-13] MEDS: Metoprolol Tartrate 25 MG Tab PO SCH (17:56)
[2022-03-13] MEDS: Saccharomyces Boulardii (Probiotic) 250 MG Cap PO SCH (20:30)
[2022-03-14] MEDS: Doxycycline 100 MG in Sodium Chloride 0.9% 100 ML IV SCH ×2 (00:17→13:06)
[2022-03-14] MEDS: Pantoprazole 40 MG Tab.CR PO SCH (06:32)
[2022-03-14 06:55] LABS: ESTIMATED GFR 77 mL/min (>60)
[2022-03-14] MEDS: metFORMIN 500 MG Tab PO SCH ×2 (08:27→18:25)
[2022-03-14] MEDS: Metoprolol Tartrate 25 MG Tab PO SCH ×2 (08:27→18:25)
[2022-03-14] MEDS: Losartan 50 MG Tab PO SCH (08:28)
[2022-03-14] MEDS: Isosorbide Mononitrate 30 MG Tab.ER PO SCH (08:29)
[2022-03-14] MEDS: Saccharomyces Boulardii (Probiotic) 250 MG Cap PO SCH ×2 (08:29→20:45)
[2022-03-14] MEDS: Docusate Sodium 250 MG Cap PO SCH (08:29)
[2022-03-14] MEDS: Clopidogrel 75 MG Tab PO SCH (08:30)
[2022-03-14] MEDS: cefTRIAXone 1 GM Vial IVPUSH SCH (13:06)
[2022-03-14] MEDS: Sodium Chloride 0.9% 10 ML Syringe FLUSH PRN (13:06)
[2022-03-14] MEDS: Warfarin 5 MG Tab PO SCH (16:20)
[2022-03-14] MEDS: atorvaSTATin 40 MG Tab PO SCH (18:25)
[2022-03-15] MEDS: Pantoprazole 40 MG Tab.CR PO SCH (06:13)
[2022-03-15 06:39] LABS: ESTIMATED GFR 62 mL/min (>60)
[2022-03-15] MEDS ORDERED: Doxycycline 100 MG Tab PO SCH (09:00)
[2022-03-15] MEDS: metFORMIN 500 MG Tab PO SCH (09:13)
[2022-03-15] MEDS: Metoprolol Tartrate 25 MG Tab PO SCH (09:14)
[2022-03-15] MEDS: Losartan 50 MG Tab PO SCH (09:15)
[2022-03-15] MEDS: Docusate Sodium 250 MG Cap PO SCH (09:15)
[2022-03-15] MEDS: Isosorbide Mononitrate 30 MG Tab.ER PO SCH (09:16)
[2022-03-15] MEDS: Saccharomyces Boulardii (Probiotic) 250 MG Cap PO SCH (09:16)
[2022-03-15 09:17] VITALS: BP 138/61; PULSE 62
[2022-03-15] MEDS: Clopidogrel 75 MG Tab PO SCH (09:18)
== END 2022-03-15 11:30 | disposition home or self-care (01) | DRG 194 ==
LOC: FB.MS 09:48
PROVIDERS: ADMIT Family Medicine; ATTEND Family Medicine
DX: J18.9 Pneumonia, unspecified organism (principal); J98.11 Atelectasis; E11.9 Type 2 diabetes mellitus without complications; Z51.5 Encounter for palliative care; Z66 Do not resuscitate; I25.10 Atherosclerotic heart disease of native coronary artery without angina pectoris; D69.6 Thrombocytopenia, unspecified; K21.9 Gastro-esophageal reflux disease without esophagitis; I10 Essential (primary) hypertension; H54.7 Unspecified visual loss; H91.90 Unspecified hearing loss, unspecified ear; I48.91 Unspecified atrial fibrillation; H52.223 Regular astigmatism, bilateral; H52.4 Presbyopia; E78.00 Pure hypercholesterolemia, unspecified; M19.90 Unspecified osteoarthritis, unspecified site; H02.88B Meibomian gland dysfunction left eye, upper and lower eyelids; H02.88A Meibomian gland dysfunction right eye, upper and lower eyelids; Z98.49 Cataract extraction status, unspecified eye; Z95.1 Presence of aortocoronary bypass graft; Z79.01 Long term (current) use of anticoagulants; Z95.5 Presence of coronary angioplasty implant and graft; Z79.899 Other long term (current) drug therapy; Z79.84 Long term (current) use of oral hypoglycemic drugs; Z88.2 Allergy status to sulfonamides; Z95.2 Presence of prosthetic heart valve; Z90.49 Acquired absence of other specified parts of digestive tract; Z87.891 Personal history of nicotine dependence
CPT/HCPCS: 36415; 71046; 80048; 80053; 82947; 83880; 84484; 85025; 85610; 86140; 87040; A9270-GY; J0696; J3490

== ENCOUNTER 2022-04-02 14:06 | Emergency (ER) | payer MEDICARE, OTHER ==
[2022-04-02] MEDS ORDERED: Colchicine 0.6 MG Tab PO ONE ×3 (14:07→17:04)
[2022-04-02 15:02] LABS: ESTIMATED GFR 62 mL/min (>60)
[2022-04-02] MEDS ORDERED: Indomethacin 25 MG Cap PO ONE (17:04)
[2022-04-02 19:14] VITALS: BP 149/66; PULSE 72
== END 2022-04-02 17:41 | disposition home or self-care (01) ==
LOC: FB.ED 14:06
DX: I25.10 Atherosclerotic heart disease of native coronary artery without angina pectoris (principal); U09.9 Post COVID-19 condition, unspecified; E11.9 Type 2 diabetes mellitus without complications; E78.00 Pure hypercholesterolemia, unspecified; Z88.2 Allergy status to sulfonamides; Z79.899 Other long term (current) drug therapy; Z79.01 Long term (current) use of anticoagulants; Z79.84 Long term (current) use of oral hypoglycemic drugs; Z90.49 Acquired absence of other specified parts of digestive tract
CPT/HCPCS: 36415; 71046; 80053; 83880; 84484; 85025; 93005; 99285; A9270

== ENCOUNTER 2022-09-20 09:21 | Emergency (ER) | payer MEDICARE, OTHER ==
[2022-09-20] MEDS ORDERED: Sodium Chloride 0.9% 10 ML Syringe FLUSH PRN (10:27)
[2022-09-20] MEDS ORDERED: Aspirin 81 MG Tab.Chew PO ONE (10:27)
[2022-09-20 10:52] LABS: ESTIMATED GFR 62 mL/min (>60)
[2022-09-20 14:50] VITALS: BP 111/68; PULSE 72
== END 2022-09-20 15:04 | disposition home or self-care (01) ==
LOC: FB.ED 09:21
DX: R07.9 Chest pain, unspecified (principal); E11.9 Type 2 diabetes mellitus without complications; K21.9 Gastro-esophageal reflux disease without esophagitis; E78.00 Pure hypercholesterolemia, unspecified; I25.10 Atherosclerotic heart disease of native coronary artery without angina pectoris; E66.9 Obesity, unspecified; Z88.2 Allergy status to sulfonamides; Z79.899 Other long term (current) drug therapy; Z86.16 Personal history of COVID-19; Z68.32 Body mass index [BMI] 32.0-32.9, adult
CPT/HCPCS: 36415; 71045; 71275; 80053; 83735; 83880; 84484; 85025; 85379; 85610; 93005; 93010; 99283; 99285; A9270-GY

== ENCOUNTER 2024-01-30 14:15 | Emergency (ER) | payer MEDICARE, MEDICAID ==
[2024-01-30 15:06] LABS: BASOPHILS PERCENT AUTO 0.6 % (0.3-3.8); EOSINOPHILS ABSOLUTE AUTO 0.1 x10-3/uL (0.0-0.6); HEMATOCRIT 45.3 % (38.3-50.1); HEMOGLOBIN 14.9 g/dL (12.9-17.7); LYMPHOCYTES ABSOLUTE AUTO 1.4 x10-3/uL (0.5-4.5); LYMPHOCYTES PERCENT AUTO 20.2 % (15.8-45.3); MEAN CORPUSCULAR HEMOGLOBIN 29.5 pg (27.0-33.3); MEAN CORPUSCULAR HGB CONC 32.9 g/dL (28.7-35.3); MEAN CORPUSCULAR VOLUME 89.6 fL (80.8-98.7); MEAN PLATELET VOLUME 9.8 fL (6.7-11.0); MONOCYTES ABSOLUTE AUTO 0.8 x10-3/uL (0.0-1.2); NEUTROPHILS ABSOLUTE AUTO 4.5 x10-3/uL (1.7-6.9); NEUTROPHILS PERCENT AUTO 66.2 % (40.3-71.8); PLATELET COUNT,PLT 109 x10(3)uL (117-477); RED BLOOD CELL COUNT 5.06 x10(6)uL (3.90-5.90); RED CELL DISTRIBUTION WIDTH 13.2 % (12.4-15.0); WHITE BLOOD CELL COUNT,WBC 6.9 x10-3/uL (3.2-10.1)
[2024-01-30 15:08] LABS: BLOOD UREA NITROGEN,BUN 16 mg/dL (7-18); BUN/CREATININE RATIO 14.5 (9-20); CALCIUM 8.6 mg/dL (8.6-10.2); CARBON DIOXIDE,CO2 30 mmol/L (21-32); CHLORIDE,CL 103 mmol/L (100-110); CREATININE 1.1 mg/dL (0.70-1.30); ESTIMATED GFR 68 mL/min (>60); GLUCOSE RANDOM 134 mg/dL (80-116); POTASSIUM,K 3.9 mmol/L (3.5-5.3); SODIUM,NA 139 mmol/L (135-145)
[2024-01-30 15:14] LABS: ALANINE AMINOTRANSFERASE,ALT 33 U/L (12-36); ALBUMIN 3.6 g/dL (3.2-4.6); ALKALINE PHOSPHATASE 123 IU/L (56-112); ASPARTATE AMNIOTRANSFERASE,AST 31 IU/L (5-25); BILIRUBIN TOTAL 0.6 mg/dL (0.1-1.3); PROTEIN TOTAL,TP 7.3 g/dL (6.0-8.0)
[2024-01-30 15:20] LABS: TROPONIN I 11.4 pg/mL (4.0-60.3)
[2024-01-30 15:59] LABS: APPEARANCE,URINE CLEAR (CLEAR); BACTERIA,URINE RARE (NS); BILIRUBIN,URINE NEGATIVE (NEGATIVE); COLOR,URINE YELLOW (YELLOW); GLUCOSE,URINE NORMAL (NORMAL); KETONES,URINE NEGATIVE (NEGATIVE); LEUKOCYTE ESTERASE,URINE NEGATIVE (NEGATIVE); NITRITE,URINE NEGATIVE (NEGATIVE); OCCULT BLOOD,URINE NEGATIVE (NEGATIVE); PROTEIN,URINE NEGATIVE (NEGATIVE); RBC,URINE 0-5 (0-5); SQUAMOUS EPITHELIAL CELLS,UR RARE (NS,R,O); UROBILINOGEN,URINE NORMAL (NEGATIVE); WBC,URINE 0-5 (0-5)
[2024-01-30 20:42] VITALS: BP 146/68; PULSE 70
== END 2024-01-30 16:51 | disposition home or self-care (01) ==
LOC: FB.ED 14:15
DX: R07.89 Other chest pain (principal); K21.9 Gastro-esophageal reflux disease without esophagitis; I10 Essential (primary) hypertension; I25.10 Atherosclerotic heart disease of native coronary artery without angina pectoris; E78.00 Pure hypercholesterolemia, unspecified; I48.91 Unspecified atrial fibrillation; J44.9 Chronic obstructive pulmonary disease, unspecified; E11.9 Type 2 diabetes mellitus without complications; E66.9 Obesity, unspecified; Z95.5 Presence of coronary angioplasty implant and graft; Z95.1 Presence of aortocoronary bypass graft; Z90.49 Acquired absence of other specified parts of digestive tract; Z79.899 Other long term (current) drug therapy; Z79.01 Long term (current) use of anticoagulants; Z79.84 Long term (current) use of oral hypoglycemic drugs; Z88.2 Allergy status to sulfonamides
CPT/HCPCS: 36415; 80053; 81001; 83880; 84484; 85025; 93005; 93010; 99283; 99285

== ENCOUNTER 2024-07-18 11:02 | Emergency (ER) | payer MEDICARE, MEDICAID ==
[2024-07-18] MEDS ORDERED: Sodium Chloride 0.9% 10 ML Syringe FLUSH PRN (11:04)
[2024-07-18 11:35] LABS: BLOOD UREA NITROGEN,BUN 15 mg/dL (7-18); BUN/CREATININE RATIO 11.5 (9-20); CALCIUM 9.2 mg/dL (8.6-10.2); CARBON DIOXIDE,CO2 30 mmol/L (21-32); CHLORIDE,CL 100 mmol/L (100-110); CREATININE 1.3 mg/dL (0.70-1.30); ESTIMATED GFR 55 mL/min (>60); GLUCOSE RANDOM 147 mg/dL (80-116); POTASSIUM,K 3.7 mmol/L (3.5-5.3); SODIUM,NA 139 mmol/L (135-145)
[2024-07-18 11:41] LABS: A/G RATIO 0.8; ALANINE AMINOTRANSFERASE,ALT 41 U/L (12-36); ALBUMIN 3.2 g/dL (3.2-4.6); ALKALINE PHOSPHATASE 129 IU/L (56-112); ASPARTATE AMNIOTRANSFERASE,AST 40 IU/L (5-25); BILIRUBIN TOTAL 0.7 mg/dL (0.1-1.3); HEMOGLOBIN 14.4 g/dL (12.9-17.7); MEAN CORPUSCULAR HEMOGLOBIN 30.2 pg (27.0-33.3); MEAN CORPUSCULAR HGB CONC 33.4 g/dL (28.7-35.3); MEAN CORPUSCULAR VOLUME 90.3 fL (80.8-98.7); PLATELET COUNT,PLT 148 x10(3)uL (117-477); PROTEIN TOTAL,TP 7.4 g/dL (6.0-8.0); RED BLOOD CELL COUNT 4.76 x10(6)uL (3.90-5.90); RED CELL DISTRIBUTION WIDTH 13.5 % (12.4-15.0); WHITE BLOOD CELL COUNT,WBC 9.4 x10-3/uL (3.2-10.1)
[2024-07-18 11:46] LABS: INR 2.09 (1.00-1.24); PROTHROMBIN TIME 20.5 sec (9.0-11.1)
[2024-07-18 11:47] LABS: TROPONIN I 15.5 pg/mL (4.0-60.3)
[2024-07-18 11:54] LABS: BAND PERCENT MAN 5 % (0-6); LYMPHOCYTES PERCENT MAN 15 % (13-37); MONOCYTES PERCENT MAN 16 % (4-12); SEG NEUTROPHILS PERCENT MAN 64 % (46-82)
[2024-07-18 13:35] VITALS: BP 130/57; PULSE 79
== END 2024-07-18 13:15 ==
LOC: FB.ED 11:02
DX: J32.9 Chronic sinusitis, unspecified (principal); H10.9 Unspecified conjunctivitis; I10 Essential (primary) hypertension; I25.10 Atherosclerotic heart disease of native coronary artery without angina pectoris; I48.91 Unspecified atrial fibrillation; E78.00 Pure hypercholesterolemia, unspecified; J44.9 Chronic obstructive pulmonary disease, unspecified; K21.9 Gastro-esophageal reflux disease without esophagitis; E11.9 Type 2 diabetes mellitus without complications; E66.9 Obesity, unspecified; Z95.1 Presence of aortocoronary bypass graft; Z95.5 Presence of coronary angioplasty implant and graft; Z90.49 Acquired absence of other specified parts of digestive tract; Z87.891 Personal history of nicotine dependence; Z79.899 Other long term (current) drug therapy; Z79.82 Long term (current) use of aspirin; Z79.01 Long term (current) use of anticoagulants; Z79.84 Long term (current) use of oral hypoglycemic drugs; Z88.2 Allergy status to sulfonamides
CPT/HCPCS: 36415; 70450; 71045; 80053; 83880; 84484; 85025; 85610; 87428-QW; 93005; 93010; 99284; 99285